=== PATIENT | male | born 1955 | race Caucasian/White ===

== ENCOUNTER 2017-05-29 22:38 | Observation (INO) | payer MEDICAID ==
[2017-05-29] MEDS ORDERED: SUBLIMAZE 100 MCG/2 ML IV ONE (22:49)
[2017-05-29] MEDS ORDERED: Sodium Chloride 0.9% 1000 ML 1,000 ML ONE (22:51)
[2017-05-29] MEDS: Sodium Chloride 0.9% 1000 ML 1,000 ML IV STA ×2 (22:51→22:54)
--- NOTE | 2017-05-29 22:55 | ERPHSYRPT ---
- History of Present Illness Historian: patient, EMS Exam Limitations: clinical condition Patient Subjective Stated Complaint: "I feel like my right kidney is going to explode" Triage Nursing Assessment: pt alert and oriented X 3, skin pwd pt ambulates without difficulty, able to speak in full sentences Physician History: Patient noted right flank pain yesterday during the day it was better during the day today but last 2 hours feels like it will explode extremely painful with no previous history of kidney stone or trauma to the area. No nausea or vomiting. Pain level X out of 10. No previous history of pain like this. Timing/Duration: today (worse), yesterday Quality: cramping, throbbing Abdominal Pain Onset Location: other (right flank) Pain Radiation: groin (right) Severity of Pain-Max: severe Severity of Pain-Current: severe Modifying Factors: Improves With: movement, position, walking Associated Symptoms: No nausea, No vomiting, No weakness Previous symptoms: no prior history Allergies/Adverse Reactions: acetaminophen [From Vicodin] Allergy (Verified 05/29/17 22:51) Hives MAKES HARD TO BREATHE ciprofloxacin [From Cipro] Allergy (Verified 05/29/17 22:51) INFLAMES TENDONS ciprofloxacin HCl [From Cipro] Allergy (Verified 05/29/17 22:51) INFLAMES TENDONS diltiazem HCl [From Cardizem] Allergy (Verified 05/29/17 22:51) Hives EDEMA hydrocodone bitartrate [From Vicodin] Allergy (Verified 05/29/17 22:51) Hives MAKES HARD TO BREATHE levofloxacin [From Levaquin] Allergy (Verified 05/29/17 22:51) INFLAMES TENDONS sertraline HCl [From Zoloft] Allergy (Verified 05/29/17 22:51) HIGH HEART RATE Sulfa (Sulfonamide Antibiotics) [Sulfa(Sulfonamide Antibiotics)] Allergy ( Verified 05/29/17 22:51) Hives zolpidem tartrate [From Ambien] Adverse Reaction (Verified 05/29/17 22:51) "DROGGY ALL DAY LONG" Home Medications: Albuterol Sulfate [Proair Hfa] 8.5 gm IH BID PRN PRN 03/31/16 [History] Clonazepam [Klonopin] 1 mg PO BID 03/31/16 [History] Dextroamphetamine/Amphetamine [Adderall 20 mg Tablet] 20 mg PO BID 03/31/16 [ History] Fluticasone/Salmeterol 115/21 [Advair Hfa 115/21 Common canister*] 2 puff IH DAILY 03/31/16 [History] Loratadine 10 mg [Claritin 10 mg] 10 mg PO DAILY 03/31/16 [History] Mometasone Furoate [Nasonex] 2 puff NS HS 03/31/16 [History] Nitroglycerin 0.4 mg Tablet [Nitrostat 0.4 MG Tablet] 0.4 mg SL UD [History] Olanzapine [Zyprexa] 20 mg PO HS 03/31/16 [History] Omeprazole 20 MG [Prilosec 20 mg] 20 mg PO HS 03/31/16 [History] Tamsulosin HCl [Flomax] 0.4 mg PO DAILY 03/31/16 [History] Tizanidine HCl 4 mg [Zanaflex 4 MG] 4 mg PO BID 03/31/16 [History] Warfarin Sodium 2.5 mg [Coumadin 2.5 MG] 2.5 mg PO QPM 03/31/16 [History] Warfarin Sodium 5 mg [Coumadin 5 MG] 5 mg PO UD 03/31/16 [History] Citalopram Hydrobromide [Citalopram HBr] 40 mg PO DAILY 05/30/17 [History] Docusate Sodium 100 mg [Colace 100 MG] 100 mg PO DAILY PRN PRN 05/30/17 [ History] Pramipexole Di-HCl 0.5 mg [Mirapex 0.5 MG Tablet] 0.5 mg PO HS 05/30/17 [ History] Verapamil HCl 180 mg PO DAILY 05/30/17 [History] Hx Tetanus, Diphtheria Vaccination/Date Given: Yes Hx Influenza Vaccination/Date Given: Yes Hx Pneumococcal Vaccination/Date Given: Yes Immunizations Up to Date: Yes - Review of Systems Eyes: No Symptoms Ears, Nose, & Throat: No Symptoms Respiratory: No Symptoms Cardiac: No Symptoms Abdominal/Gastrointestinal: Other (as noted right groin) Genitourinary Symptoms: Flank Pain Musculoskeletal: No Symptoms Skin: No Symptoms Neurological: No Symptoms Psychological: No Symptoms - Past Medical History Pertinent Past Medical History: Yes (no hx of DM or kidney disease) Neurological History: No Pertinent History ENT History: No Pertinent History Cardiac History: Deep Vein Thrombosis, Hypertension, Myocardial Infarction ([place]) Respiratory History: COPD, Emphysema, Pulmonary Embolism Endocrine Medical History: No Pertinent History Musculoskeletal History: Degenerative Disk Disease GI Medical History: No Pertinent History History: Bladder Cancer Psycho-Social History: Anxiety, Attention Deficit Disorder, Bipolar, Depression Male Reproductive Disorders: No Pertinent History - Past Surgical History Past Surgical History: Yes Gastrointestinal: Hernia Repair Other Surgical History: CANCER TUMOR REMOVED FROM BLADDER, TONSILLECTOMY - Social History Smoking Status: Current every day smoker How long have you smoked: years Exposure to second hand smoke: Yes Drug Use: none Patient Lives Alone: Yes - Nursing Vital Signs Nursing Vital Signs: Initial Vital Signs Temperature 98.3 F 05/29/17 22:39 Pulse Rate 68 05/29/17 22:39 Respiratory Rate 20 05/29/17 22:39 Blood Pressure 113/84 05/29/17 22:39 O2 Sat by Pulse Oximetry 94 L 05/29/17 22:39 Pain Scale Pain Intensity 10 - Physical Exam General Appearance: moderate distress, alert, anxiety Eye Exam: PERRL/EOMI Ears, Nose, Throat Exam: normal ENT inspection Neck Exam: normal inspection, non-tender, supple, full range of motion Respiratory Exam: normal breath sounds, lungs clear Cardiovascular Exam: regular rate/rhythm, normal heart sounds, normal peripheral pulses Gastrointestinal/Abdomen Exam: soft, normal bowel sounds, tenderness (LRQ), hernia (LEFT INGUINAL,SOFT,BS PRESENT), No pulsatile mass, No rebound Male Genitalia Exam: normal genitalia Rectal Exam: deferred Back Exam: CVA tenderness (RIGHT) Extremity Exam: normal inspection, normal range of motion, pelvis stable Neurologic Exam: alert, oriented x 3, cooperative, spearer II-XII nml as tested Skin Exam: normal color, warm, dry, No rash Lymphatic Exam: No adenopathy SpO2 Interpretation: normal SpO2: 94 Oxygen Delivery: Room Air - CT Exams Abdomen/Pelvis CT Interpretation: Tele-radiologist Report, Normal Appendix, No appendicitis, Other (LEFT INGUINAL HERNIA WITH COLON) Ordered Tests: Active Orders 24 hr Category Date Time Status Up With Assistance ROUTINE Activity 05/30/17 01:53 Active Clean Catch Urine Specimen STAT Care 05/30/17 00:45 Completed IV Care Q6H Care 05/30/17 01:53 Active IV Insertion STAT Care 05/29/17 22:43 Completed NPO (ED) STAT Care 05/29/17 22:43 Completed Cardiac Diet Diet 05/30/17 Breakfast Active ABDOMEN AND PELVIS W/0 CONTRAS [CT] Stat Exams 05/30/17 00:03 Taken AMYLASE Stat Lab 05/29/17 22:55 Completed CBC W DIFF AM.LAB Lab 05/30/17 04:00 Ordered CBC W DIFF Stat Lab 05/29/17 22:55 Completed CMP AM.LAB Lab 05/30/17 04:00 Ordered CMP Stat Lab 05/29/17 22:55 Completed CULTURE,URINE Stat Lab 05/30/17 00:30 Received LIPASE Stat Lab 05/29/17 22:55 Completed PROTIME WITH INR Stat Lab 05/30/17 00:00 Completed UA W/ MICROSCOPIC Stat Lab 05/30/17 00:30 Completed Urine Triage Profile Stat Lab 05/29/17 22:43 Completed Transfer Order Routine Transfer 05/30/17 02:29 Completed Medication Summary Generic Name Dose Route Start Last Admin Trade Name Freq PRN Reason Stop Dose Admin Acetaminophen 650 mg 05/30/17 01:53 Tylenol 325 Mg PO 06/29/17 01:52 Q4H PRN PRN PAIN AND/OR FEVER Albuterol Sulfate 2 puff 05/30/17 10:00 05/30/17 03:58 Proventil Common Canister IH 06/29/17 09:59 2 puff BID USHA Administration Fentanyl Citrate 50 mcg 05/30/17 01:53 05/30/17 04:22 Sublimaze 100 Mcg/2 Ml IV 06/04/17 01:52 50 mcg Q2H PRN PRN Administration PAIN Potassium Chloride/Sodium Chloride 1,000 mls @ 100 mls/hr 05/30/17 02:00 08/06 03:05 Sodium Chloride 0.9% W/ 20 Meq Kcl/Liter IV 06/29/17 01:59 100 mls/hr .Q10H USHA Administration Ondansetron HCl 4 mg 05/30/17 01:53 Zofran 4 Mg/2 Ml Vial IV 06/29/17 01:52 Q6H PRN PRN NAUSEA/VOMITING Discontinued Medications Generic Name Dose Route Start Last Admin Trade Name Raoq PRN Reason Stop Dose Admin Fentanyl Citrate 50 mcg 05/29/17 22:49 05/29/17 23:02 Sublimaze 100 Mcg/2 Ml IV 05/29/17 22:50 50 mcg STAT ONE Administration Fentanyl Citrate Confirm 05/29/17 23:01 Sublimaze 100 Mcg/2 Ml Administered 05/29/17 23:02 Dose 100 mcg .ROUTE .STK-MED ONE Fentanyl Citrate 50 mcg 05/30/17 01:21 05/30/17 01:36 Sublimaze 100 Mcg/2 Ml IV 05/30/17 01:22 50 mcg STAT ONE Administration Fentanyl Citrate Confirm 05/30/17 01:32 Sublimaze 100 Mcg/2 Ml Administered 05/30/17 01:33 Dose 100 mcg .ROUTE .STK-MED ONE Sodium Chloride 1,000 mls @ 999 mls/hr 05/29/17 22:43 05/29/17 22:54 Sodium Chloride 0.9% 1000 Ml IV 05/29/17 23:43 999 mls/hr .Q1H1M STA Administration Sodium Chloride Confirm 05/29/17 22:51 Sodium Chloride 0.9% 1000 Ml Administered 05/29/17 22:52 Dose 1,000 mls @ ud .ROUTE .STK-MED ONE Ceftriaxone Sodium/Dextrose 2 g in 50 mls @ 100 mls/hr 05/30/17 01:20 01:36 Rocephin 2 Gm-D5w 50ml Bag IV 05/30/17 01:49 100 mls/hr STAT STA Administration Ceftriaxone Sodium/Dextrose Confirm 05/30/17 01:32 Rocephin 2 Gm-D5w 50ml Bag Administered 05/30/17 01:33 Dose 2 g in 50 mls @ ud IV .STK-MED ONE Ceftriaxone Sodium/Dextrose 1 g in 50 mls @ 100 mls/hr 05/30/17 10:00 Rocephin 1 Gm-D5w 50 Ml Bag IV 06/29/17 09:59 Q24H10 [facility] Lab/Rad Data: Laboratory Result Diagrams 05/29/17 22:55 05/29/17 22:55 Laboratory Results 05/30/17 05/30/17 05/30/17 Range/Units 00:30 00:30 00:00 WBC (4.0-10.5) K/mm3 RBC (4.1-5.6) M/mm3 Hgb (12.5-18.0) gm/dl Hct (42-50) % MCV (78-100) fl MCH (26-32) pg MCHC (32-36) g/dl RDW (11.5-14.0) % Plt Count (150-450) K/mm3 MPV (6-9.5) fl Gran % (36.0-66.0) % Lymphocytes % (24.0-44.0) % Monocytes % (0.0-12.0) % Eosinophils % (0.00-5.0) % Basophils % (0.0-0.4) % Basophils # (0-0.4) INR 1.19 (0.8-3.0) Sodium (136-145) mEq/L Potassium (3.5-5.1) mEq/L Chloride (98-107) mEq/L Carbon Dioxide (21-32) mEq/L Anion Gap (5-15) MEQ/L BUN (9-20) mg/dL Creatinine (0.55-1.30) mg/dl Estimated GFR ML/MIN Glucose (70-110) MG/DL Calcium (8.5-10.1) mg/dL Total Bilirubin (0.2-1.0) mg/dL AST (15-37) U/L ALT (12-78) U/L Alkaline Phosphatase (46-116) U/L Serum Total Protein (6.4-8.2) gm/dL Albumin (3.4-5.0) g/dL Amylase (25-115) U/L Lipase (73-393) U/L Ur Collection Type CLEAN CATCH Urine Color YELLOW (YELLOW) Urine Appearance CLOUDY (CLEAR) Urine pH 6.5 (5-6) Ur Specific [place] 1.020 (1.005-1.025) Urine Protein TRACE (Negative) Urine Ketones NEGATIVE (NEGATIVE) Urine Blood 250 (0-5) Quinn/ul Urine Nitrite POSITIVE (NEGATIVE) Urine Bilirubin NEGATIVE (NEGATIVE) Urine Urobilinogen NORMAL (0-1) mg/dL Ur Leukocyte Esterase 2+ (NEGATIVE) Urine Microscopic RBC 25-50 (0-2) /HPF Urine Microscopic WBC >100 (0-5) /HPF Ur Epithelial Cells FEW (FEW) /HPF Urine Bacteria MANY (NEGATIVE) /HPF Urine Mucus SLIGHT (NEGATIVE) /HPF Urine Glucose NEGATIVE (NEGATIVE) mg/dL Urine Opiates Level NEG. (NEGATIVE) Ur Methadone NEG. (NEGATIVE) Urine Barbiturates NEG. (NEGATIVE) Ur Phencyclidine (PCP) NEG. (NEGATIVE) Urine Amphetamine POS. (NEGATIVE) U Benzodiazepine Level NEG. (NEGATIVE) Urine Cocaine NEG. (NEGATIVE) Urine Marijuana (THC) NEG. (NEGATIVE) Specimen Received 05/30/17:0030 05/29/17 05/29/17 Range/Units 22:55 22:55 WBC 9.2 (4.0-10.5) K/mm3 RBC 5.25 (4.1-5.6) M/mm3 Hgb 16.8 (12.5-18.0) gm/dl Hct 49.7 (42-50) % MCV 94.7 (78-100) fl MCH 32.0 (26-32) pg MCHC 33.8 (32-36) g/dl RDW 13.9 (11.5-14.0) % Plt Count 262 (150-450) K/mm3 MPV 9.1 (6-9.5) fl Gran % 52.9 (36.0-66.0) % Lymphocytes % 34.4 (24.0-44.0) % Monocytes % 8.1 (0.0-12.0) % Eosinophils % 4.1 (0.00-5.0) % Basophils % 0.5 (0.0-0.4) % Basophils # 0.05 (0-0.4) INR (0.8-3.0) Sodium 138 (136-145) mEq/L Potassium 3.9 (3.5-5.1) mEq/L Chloride 105 (98-107) mEq/L Carbon Dioxide 23.2 (21-32) mEq/L Anion Gap 13.9 (5-15) MEQ/L BUN 23 H (9-20) mg/dL Creatinine 1.00 (0.55-1.30) mg/dl Estimated GFR > 60 ML/MIN Glucose 105 (70-110) MG/DL Calcium 9.1 (8.5-10.1) mg/dL Total Bilirubin 0.20 (0.2-1.0) mg/dL AST 20 (15-37) U/L ALT 37 (12-78) U/L Alkaline Phosphatase 48 (46-116) U/L Serum Total Protein 7.3 (6.4-8.2) gm/dL Albumin 3.7 (3.4-5.0) g/dL Amylase 39 (25-115) U/L Lipase 162 (73-393) U/L Ur Collection Type Urine Color (YELLOW) Urine Appearance (CLEAR) Urine pH (5-6) Ur Specific [place] (1.005-1.025) Urine Protein (Negative) Urine Ketones (NEGATIVE) Urine Blood (0-5) Quinn/ul Urine Nitrite (NEGATIVE) Urine Bilirubin (NEGATIVE) Urine Urobilinogen (0-1) mg/dL Ur Leukocyte Esterase (NEGATIVE) Urine Microscopic RBC (0-2) /HPF Urine Microscopic WBC (0-5) /HPF Ur Epithelial Cells (FEW) /HPF Urine Bacteria (NEGATIVE) /HPF Urine Mucus (NEGATIVE) /HPF Urine Glucose (NEGATIVE) mg/dL Urine Opiates Level (NEGATIVE) Ur Methadone (NEGATIVE) Urine Barbiturates (NEGATIVE) Ur Phencyclidine (PCP) (NEGATIVE) Urine Amphetamine (NEGATIVE) U Benzodiazepine Level (NEGATIVE) Urine Cocaine (NEGATIVE) Urine Marijuana (THC) (NEGATIVE) Specimen Received - Progress Progress: improved, pain not gone completely, re-examined Progress Note: 05/30/17 01:37Urinalysis significant for urinary tract infection probable right pyelonephritis no renal stone noted on CT however did note left inguinal hernia with colon. Patient will be admitted for intravenous antibiotics and further evaluation /treatment as well as pain control which is in agreement to the patient. Discussed with : Marcos Will see patient in: hospital (observation) - Departure Time of Disposition: 01:38 Departure Disposition: Observation Clinical Impression: History of DVT (deep vein thrombosis), Warfarin anticoagulation, Acute pyelonephritis, Left inguinal hernia Condition: Fair Critical Care Time: No
[2017-05-29] MEDS ORDERED: SUBLIMAZE 100 MCG/2 ML ONE (23:01)
[2017-05-29 23:08] LABS: BASOPHIL % 0.5 % (0.0-0.4); Eosinophil % 4.1 % (0.00-5.0); Granulocytes % 52.9 % (36.0-66.0); Lymphocytes % 34.4 % (24.0-44.0); Mean Cell Volume 94.7 fl (78-100); Mean Platelet Volume 9.1 fl (6-9.5); Monocytes % 8.1 % (0.0-12.0); Platelet Count 262 K/mm3 (150-450); Red Blood Count 5.25 M/mm3 (4.1-5.6); Red Cell Distribution Width 13.9 % (11.5-14.0); White Blood Count 9.2 K/mm3 (4.0-10.5)
[2017-05-29 23:30] LABS: ALBUMIN 3.7 g/dL (3.4-5.0); ALKALINE PHOSPHATASE 48 U/L (46-116); ANION GAP 13.9 MEQ/L (5-15); BLOOD UREA NITROGEN 23 mg/dL (9-20); CHLORIDE 105 mEq/L (98-107); Carbon Dioxide 23.2 mEq/L (21-32); Glucose 105 MG/DL (70-110); LIPASE 162 U/L (73-393); Potassium 3.9 mEq/L (3.5-5.1); SGOT/AST 20 U/L (15-37); SGPT/ALT 37 U/L (12-78); SODIUM 138 mEq/L (136-145); Total Protein 7.3 gm/dL (6.4-8.2)
[2017-05-30 00:37] LABS: INR 1.19 (0.8-3.0); PROTIME 13.5 SECONDS (8.83-12.87)
[2017-05-30 01:02] LABS: ADD URINE CULTURE? YES (NO); Bilirubin NEGATIVE (NEGATIVE); Blood 250 Ery/ul (0-5); COMPLETE URINE MICROSCOPIC? YES; Collection Type CLEAN CATCH; Glucose NEGATIVE (NEGATIVE); Leukocyte Esterase 2+ (NEGATIVE)
[2017-05-30 01:06] LABS: Bacteria MANY /HPF (NEGATIVE); Epithelial Cells FEW /HPF (FEW); Mucus SLIGHT /HPF (NEGATIVE); WBC >100 /HPF (0-5)
[2017-05-30] MEDS ORDERED: ROCEPHIN 2 Gm-D5w 50ML BAG** 2 G/50 ML IVPB IV STA (01:20)
[2017-05-30] MEDS ORDERED: SUBLIMAZE 100 MCG/2 ML IV ONE (01:21)
[2017-05-30] MEDS ORDERED: SUBLIMAZE 100 MCG/2 ML ONE (01:32)
[2017-05-30] MEDS ORDERED: ROCEPHIN 2 Gm-D5w 50ML BAG** 2 G/50 ML IVPB IV ONE (01:32)
[2017-05-30] MEDS ORDERED: Zofran 4 MG/2 ML VIAL IV PRN (01:53)
[2017-05-30] MEDS ORDERED: TYLENOL 325 MG PO PRN (01:53)
[2017-05-30] MEDS: Sodium Chloride 0.9% W/ 20 mEq KCl/LITER 1,000 ML IV SCH ×3 (03:05→21:28)
[2017-05-30] MEDS: SUBLIMAZE 100 MCG/2 ML IV PRN ×4 (04:22→21:36)
[2017-05-30 06:26] LABS: BASOPHIL % 0.6 % (0.0-0.4); Eosinophil % 3.5 % (0.00-5.0); Granulocytes % 56.8 % (36.0-66.0); Lymphocytes % 30.8 % (24.0-44.0); Mean Cell Volume 95.7 fl (78-100); Mean Corpuscular Hemoglobin 31.8 pg (26-32); Monocytes % 8.3 % (0.0-12.0); Platelet Count 255 K/mm3 (150-450); Red Blood Count 4.85 M/mm3 (4.1-5.6); Red Cell Distribution Width 14.1 % (11.5-14.0); White Blood Count 9.1 K/mm3 (4.0-10.5)
[2017-05-30 06:55] LABS: ALBUMIN 3.3 g/dL (3.4-5.0); ALKALINE PHOSPHATASE 42 U/L (46-116); ANION GAP 12.9 MEQ/L (5-15); BLOOD UREA NITROGEN 20 mg/dL (9-20); CHLORIDE 107 mEq/L (98-107); Carbon Dioxide 23.6 mEq/L (21-32); Glucose 97 MG/DL (70-110); Potassium 3.8 mEq/L (3.5-5.1); SGOT/AST 19 U/L (15-37); SGPT/ALT 34 U/L (12-78); SODIUM 140 mEq/L (136-145); Total Protein 6.5 gm/dL (6.4-8.2)
[2017-05-30] MEDS: PROVENTIL COMMON CANISTER IH SCH ×2 (07:07→19:36)
[2017-05-30] MEDS: Nicoderm CQ 21 MG TOP SCH ×2 (09:59→10:00)
[2017-05-30] MEDS ORDERED: ROCEPHIN 1 Gm-D5w 50 ml Bag** 1 G/50 ML IVPB IV SCH ×2 (10:00→22:00)
[2017-05-30] MEDS ORDERED: PROVENTIL COMMON CANISTER IH SCH (10:00)
[2017-05-30] MEDS ORDERED: Nicoderm CQ 21 MG ONE (10:06)
--- NOTE | 2017-05-30 12:12 | XRAY ---
Exam: CT of the abdomen and pelvis without IV contrast from 05/30/2017. CTDI: 18.86 Comparison: CT of the abdomen and pelvis with IV contrast from 09/03/2016. Indication: Right flank pain. Technique: Non-IV contrast axial images were obtained through the abdomen and pelvis. Reconstructed coronal and sagittal images were created and reviewed. Findings: The lung bases reveals some centrilobular emphysema changes. There also appears to be mild linear atelectasis or scarring at the posterior medial right lung base and scant linear scarring/atelectasis at the posterior lateral left lung base. The heart size is normal. Assessment of the solid organs is limited without the use of IV contrast. The liver is essentially normal. There is a tiny 5 mm low attenuation lesion at the anterior margin of the left lobe of the liver on axial image #18 which is too small to characterize, but likely represents a small hepatic cyst. No intrahepatic biliary duct distention is seen. The gallbladder is distended and reveals no dense calcifications within it. The spleen, pancreas, and adrenal glands appear normal. The kidneys are of unremarkable size. No renal calculi or hydronephrosis is seen. There is an apparent 2.0 cm in diameter cyst within the anterior aspect of the upper pole of the right kidney. There is also a tiny 4-5 mm probable cyst at the posterior lateral margin of the upper pole of the right kidney. I also suspect a 1 cm in diameter cyst within the posterior aspect of the middle third of the right kidney on axial image #31 measuring +8.9 Hounsfield units. These right renal cysts appear unchanged from 09/03/2016. The visualized ureters are of normal diameter and reveal no ureterolith. Mild scattered atherosclerotic vascular calcification is seen within the abdominal aorta. This is a bit more pronounced at the aortic bifurcation and within the proximal iliac arteries. No abdominal aortic aneurysm is seen. No abnormal retroperitoneal lymphadenopathy is seen. The anterior abdominal wall appears unremarkable. No bowel obstruction or distention is seen. Scattered colonic stool is noted. There is a left inguinal hernia containing a nondistended sigmoid colon loop within it. Correlate clinically. I also note some surgical clips/suture material within the right inguinal canal, perhaps due to prior right inguinal hernia repair. The appendix is identified and appears normal. No free intraperitoneal fluid or enlarged pelvic lymph nodes are seen. The urinary bladder appears relatively empty which probably accounts for some apparent urinary bladder wall thickening. Correlate clinically to exclude cystitis. The seminal vesicles and prostate gland appear unremarkable. Moderate atherosclerotic vascular calcification is seen within the iliac arteries and common femoral arteries. No abnormal lymphadenopathy is seen within either groin. The bones reveal no fracture or aggressive osseous lesion. There appears to be some mild narrowing of the right hip joint space as compared to the left hip joint space suggesting mild osteoarthritis. Some acetabular spurring is seen bilaterally. I note moderate bilateral facet joint arthropathy at L4-L5 and L5-S1 and mild left L3-L4 facet joint arthropathy. Anterior lateral vertebral endplate spurs are seen throughout the visualized thoracolumbar spine area Impression: 1. I see no renal/ureteral stones, hydronephrosis, or obstructive uropathy. 2. There are at least 3 small cysts within the right kidney representing no change from 09/03/2016. 3. Left inguinal hernia containing stool-filled nondilated sigmoid colon loop. Correlate clinically. 4. Normal appendix. 5. The urinary bladder is mostly empty. This is probably accentuating the urinary bladder wall thickness. Correlate clinically to exclude cystitis. 6. No other acute process is seen within the abdomen or pelvis. Emphysematous changes are seen at the lung bases.
[2017-05-30] MEDS ORDERED: Colace 100 MG PO PRN (12:52)
[2017-05-30] MEDS ORDERED: Ventolin Hfa MDI IH PRN (12:52)
[2017-05-30] MEDS ORDERED: ISOPTIN SR 180MG PO SCH (13:00)
[2017-05-30] MEDS ORDERED: Nitrostat 0.4 MG Tablet SL PRN (13:00)
[2017-05-30] MEDS ORDERED: CLARITIN 10 MG PO SCH (13:00)
[2017-05-30] MEDS ORDERED: Flomax 0.4 MG PO SCH (13:00)
[2017-05-30] MEDS ORDERED: MEDICATION INTERVENTION MC PRN (13:07)
[2017-05-30] MEDS ORDERED: Advair Hfa 115/21 Common canister IH SCH (13:15)
[2017-05-30] MEDS ORDERED: ceLEXa 20 MG PO SCH (13:15)
[2017-05-30] MEDS: Klonopin 0.5 MG PO SCH ×2 (15:02→21:30)
[2017-05-30] MEDS ORDERED: Coumadin 2.5 MG PO SCH (18:00)
[2017-05-30] MEDS ORDERED: MOMETASONE FUROATE NS SCH (22:00)
[2017-05-30] MEDS ORDERED: NON-FORMULARY ITEM (Dextroamphetamine/Amphetamine [Adderall 20 Mg Tablet] 20 MG) PO SCH (22:00)
[2017-05-30] MEDS ORDERED: NON-FORMULARY ITEM (Clonazepam [Klonopin] 1 MG) PO SCH (22:00)
[2017-05-30] MEDS ORDERED: Flonase NASAL NS SCH (22:00)
[2017-05-30] MEDS ORDERED: Protonix 40MG Tablet PO SCH (22:00)
[2017-05-30] MEDS ORDERED: OLANZAPINE 20 MG PO SCH (22:00)
[2017-05-30] MEDS ORDERED: Mirapex 0.5 MG Tablet PO SCH (22:00)
[2017-05-30] MEDS ORDERED: Zanaflex 4 MG PO SCH (22:00)
[2017-05-30] MEDS ORDERED: zyPREXA 5MG TABLET PO SCH (22:00)
[2017-05-30] MEDS ORDERED: NON-FORMULARY ITEM (Omeprazole 20 Mg [Prilosec 20 Mg] 20 MG) PO SCH (22:00)
[2017-05-31] MEDS: PROVENTIL COMMON CANISTER IH SCH (06:54)
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
[2017-05-31 08:10] VITALS: BP 115/58; PULSE 47; O2SAT 93
[2017-05-31] MEDS ORDERED: NON-FORMULARY ITEM (Citalopram Hydrobromide [Citalopram Hbr] 40 MG) PO SCH (10:00)
[2017-05-31] MEDS ORDERED: Coumadin 5 MG PO SCH (18:00)
== END 2017-05-31 10:25 | disposition home or self-care (01) ==
LOC: ED 22:38 → MED SURG 05-30 02:33
PROVIDERS: ADMIT General Practice; ATTEND General Practice
DX: N10 Acute pyelonephritis (principal); Z86.718 Personal history of other venous thrombosis and embolism; K40.90 Unilateral inguinal hernia, without obstruction or gangrene, not specified as recurrent; S20.211A Contusion of right front wall of thorax, initial encounter; S09.90XA Unspecified injury of head, initial encounter; S01.01XA Laceration without foreign body of scalp, initial encounter; M79.604 Pain in right leg; Y09 Assault by unspecified means; Z79.01 Long term (current) use of anticoagulants; Z79.899 Other long term (current) drug therapy
CPT/HCPCS: 36415; 74176; 80053; 80307; 81000; 82150; 83690; 85025; 85610; 87077; 87086; 87186; 94640; 94760; 96360; 96365; 96374; 96376; 99285; G0378; J0696; J3010; A9270-GY

== ENCOUNTER 2020-05-25 21:20 | Emergency (ER) | payer MEDICAID ==
[2020-05-25] MEDS ORDERED: Sodium Chloride 0.9% 1000 ML 1,000 ML IV STA (21:26)
[2020-05-25 21:45] LABS: BASOPHIL % 0.5 % (0.0-0.4); Basophil (Absolute #) 0.04 (0-0.4); Eosinophil % 11.9 % (0.00-5.0); Eosinophil (Absolute #) 0.88 (0-0.5); Hematocrit 38.9 % (42-50); Hemoglobin 12.5 gm/dl (12.5-18.0); Lymphocyte (Absolute #) 1.81 (1.0-4.6); Lymphocytes % 24.5 % (24.0-44.0); Mean Cell Volume 96.3 fl (78-100); Mean Corpuscular Hemoglobin 30.9 pg (26-32); Mean Corpuscular Hgb Concent. 32.1 g/dl (32-36); Mean Platelet Volume 8.6 fl (7.5-11.0); Monocyte (Absolute #) 0.56 (0.0-1.3); Monocytes % 7.6 % (0.0-12.0); Neutrophil % 55.5 % (36.0-66.0); Platelet Count 392 K/mm3 (150-450); Red Blood Count 4.04 M/mm3 (4.1-5.6); Red Cell Distribution Width 13.9 % (11.5-14.0); White Blood Count 7.4 K/mm3 (4.0-10.5)
--- NOTE | 2020-05-25 21:56 | ERPHSYRPT ---
- History of Present Illness Time Seen by Provider: 05/25/20 21:27 Source: patient, EMS Patient Subjective Stated Complaint: PT C/O ALLERGIC REACTION AND "HIVES ALL OVER" THAT BEGAN. LAST NIGHT; PT ADMITS TO METH USE AND HIP REPLACEMENT SX. DR. GOMEZ Triage Nursing Assessment: NO HIVES NOTED PER EMS OR THIS RN; Physician History: 65 History is limited. Years old male is brought in the ER with chief complaint of hives all over and itching. He got [address]ryl on the way to the ER and his itching is mildly better. Patient was a little confused on EMS presentation and did admit to using methamphetamines earlier today. Questionable use of bath salts. Patient denies any chest pain palpitations or shortness of breath. No abdominal pain nausea or vomiting. He is complaining of right hip pain leg pain. Patient is post hip replacement less than 10 days ago at [place] but reports increasing sharp shooting pain in right lower extre mities with palpation and minimal movements. He has been taking his pain medication with no significant relief. Also reports swelling in the right lower extremity. denies fever or chills. Denies any fall or trauma. Patient is not a good historian and has some element of confusion as well. Allergies/Adverse Reactions: acetaminophen [From Vicodin] Allergy (Intermediate, Verified 05/25/20 21:45) Hives MAKES HARD TO BREATHE ciprofloxacin [From Cipro] Allergy (Intermediate, Verified 05/25/20 21:45) INFLAMES TENDONS ciprofloxacin HCl [From Cipro] Allergy (Intermediate, Verified 05/25/20 21:45) INFLAMES TENDONS diltiazem HCl [From Cardizem] Allergy (Intermediate, Verified 05/25/20 21:45) Hives EDEMA hydrocodone bitartrate [From Vicodin] Allergy (Intermediate, Verified 05/25/20 21:45) Hives MAKES HARD TO BREATHE levofloxacin [From Levaquin] Allergy (Intermediate, Verified 05/25/20 21:45) INFLAMES TENDONS sertraline HCl [From Zoloft] Allergy (Intermediate, Verified 05/25/20 21:45) HIGH HEART RATE Sulfa (Sulfonamide Antibiotics) [Sulfa(Sulfonamide Antibiotics)] Allergy (Intermediate, Verified 05/25/20 21:45) Hives zolpidem tartrate [From Ambien] Adverse Reaction (Intermediate, Verified 05/25/20 21:45) "DROGGY ALL DAY LONG" Home Medications: Albuterol Sulfate [Proair Hfa] 8.5 gm IH BID PRN PRN 03/31/16 [History] Loratadine 10 mg [Claritin 10 mg] 10 mg PO DAILY 03/31/16 [History] Omeprazole 20 MG [Prilosec 20 mg] 40 mg PO HS 03/31/16 [History] Tamsulosin HCl [Flomax] 0.4 mg PO DAILY 03/31/16 [History] Citalopram Hydrobromide [Citalopram HBr] 40 mg PO DAILY 05/30/17 [History] Verapamil HCl 180 mg PO DAILY 05/30/17 [History] Clonidine HCl 0.1 mg [Catapres 0.1 MG] 1 tab PO TID 05/25/20 [History] Donepezil HCl 10 mg [Aricept 10 MG] 05/25/20 [History] Fenofibrate Nanocrystallized [Fenofibrate] 1 tab PO DAILY 05/25/20 [History] Gabapentin 1 cap PO TID 05/25/20 [History] Warfarin Sodium [Coumadin] 1 tab PO DAILY 05/25/20 [History] Hx Tetanus, Diphtheria Vaccination/Date Given: Yes Hx Influenza Vaccination/Date Given: No Hx Pneumococcal Vaccination/Date Given: No Immunizations Up to Date: Yes Travel Risk - International Travel Have you traveled outside of the country in past 3 weeks: No - Coronavirus Screening Close contact with a COVID-19 positive Pt in past 14-21 Days: No - Review of Systems Eyes: No Symptoms Ears, Nose, & Throat: No Symptoms Respiratory: No Symptoms Cardiac: No Symptoms Abdominal/Gastrointestinal: No Symptoms Musculoskeletal: Joint Pain, Myalgias Skin: Pruritis Neurological: Headache Psychological: Anxiety Endocrine: No Symptoms Hematologic/Lymphatic: No Symptoms Immunological/Allergic: No Symptoms - Past Medical History Pertinent Past Medical History: Yes Neurological History: No Pertinent History ENT History: No Pertinent History Cardiac History: Deep Vein Thrombosis, Hypertension, Myocardial Infarction ([place]) Respiratory History: COPD, Emphysema, Pulmonary Embolism Endocrine Medical History: No Pertinent History Musculoskeletal History: Degenerative Disk Disease GI Medical History: No Pertinent History History: Bladder Cancer Psycho-Social History: Anxiety, Attention Deficit Disorder, Bipolar, Depression Male Reproductive Disorders: No Pertinent History - Past Surgical History Past Surgical History: Yes Gastrointestinal: Hernia Repair Musculoskeletal: Joint Replacement Other Surgical History: CANCER TUMOR REMOVED FROM BLADDER, TONSILLECTOMY; RIGHT HIP. REPLACEMENT - Social History Smoking Status: Current every day smoker How long have you smoked: 45 Exposure to second hand smoke: Yes Drug Use: methamphetamines Patient Lives Alone: No - Nursing Vital Signs Nursing Vital Signs: Initial Vital Signs Temperature 98.5 F 05/25/20 21:21 Pulse Rate 68 05/25/20 21:21 Respiratory Rate 18 05/25/20 21:21 Blood Pressure 130/79 05/25/20 21:21 O2 Sat by Pulse Oximetry 91 L 05/25/20 21:21 Pain Scale Pain Intensity 5 - Physical Exam General Appearance: no apparent distress, alert, anxiety Eye Exam: PERRL/EOMI, eyes nml inspection Ears, Nose, Throat Exam: normal ENT inspection, tonsillar exudate, other (Dry mucous membranes) Neck Exam: normal inspection, non-tender, supple Respiratory Exam: normal breath sounds, lungs clear Cardiovascular Exam: regular rate/rhythm, normal heart sounds Gastrointestinal/Abdomen Exam: soft, normal bowel sounds, No tenderness Back Exam: normal inspection, normal range of motion, No CVA tenderness Extremity Exam: calf tenderness, joint swelling (Right hip. Dressing well applied. No redness erythema/induration.), pedal edema (Right), swelling, tenderness (Right lower extremity), other (Dressing well applied along lateral aspect of right hip. Minimal pain with movements of hip. Do not seems dislocated.) Neurologic Exam: alert, oriented x 3, machine strap buckler II-XII nml as tested, sensation nml, other (Labile mood), No motor deficits Skin Exam: normal color, warm, rash (Hives on right lower extremity all the way down and few on the left.) SpO2 Interpretation: normal SpO2: 91 O2 Delivery: Room Air - Course Nursing assessment & vital signs reviewed: Yes EKG Interpreted by Me: RATE (78), NORMAL AXIS, NORMAL INTERVALS, NORMAL QRS, Other (APC.) Ordered Tests: Active Orders 24 hr Category Date Time Status EKG-ER Only STAT Care 05/25/20 21:26 Active IV Insertion STAT Care 05/25/20 21:26 Active NPO (ED) STAT Care 05/25/20 21:26 Active CHEST 1 VIEW (PORTABLE) Stat Exams 05/25/20 21:27 Taken HEAD WITHOUT CONTRAST [CT] Stat Exams 05/25/20 21:27 Taken VENOUS UNILAT/LIMITED EXTREMIT [US] Stat Exams 05/25/20 21:55 Taken CBC W DIFF Stat Lab 05/25/20 21:40 Completed CMP Stat Lab 05/25/20 21:40 Completed CULTURE,URINE Stat Lab 05/25/20 23:14 Received PT INR [PROTIME WITH INR] Stat Lab 05/25/20 22:51 Completed TROPONIN Q3H Lab 05/25/20 21:40 Completed TROPONIN Q3H Lab 05/26/20 00:30 Ordered TROPONIN Q3H Lab 05/26/20 03:30 Ordered TROPONIN Q3H Lab 05/26/20 06:30 Ordered TROPONIN Q3H Lab 05/26/20 09:30 Ordered UA W/RFX UR CULTURE Stat Lab 05/25/20 23:14 Completed Urine Triage Profile Stat Lab 05/25/20 23:14 Completed Medication Summary Discontinued Medications Generic Name Dose Route Start Last Admin Trade Name Freq PRN Reason Stop Dose Admin Cephalexin HCl 500 mg 05/26/20 00:13 05/26/20 00:28 Keflex 500 Mg PO 05/26/20 00:14 500 mg STAT ONE Administration Cephalexin HCl Confirm 05/26/20 00:27 Keflex 500 Mg Administered 05/26/20 00:28 Dose 500 mg .ROUTE .STK-MED ONE Famotidine 40 mg 05/25/20 23:18 05/25/20 23:25 Pepcid 20 Mg Vial IV 05/25/20 23:19 40 mg STAT ONE Administration Famotidine Confirm 05/25/20 23:22 Pepcid 20 Mg Vial Administered 05/25/20 23:23 Dose 40 mg IV .STK-MED ONE Sodium Chloride 1,000 mls @ 999 mls/hr 05/25/20 21:26 05/25/20 22:25 Sodium Chloride 0.9% 1000 Ml IV 05/25/20 22:26 999 mls/hr .Q1H1M STA Administration Sodium Chloride Confirm 05/25/20 22:25 Sodium Chloride 0.9% 1000 Ml Administered 05/25/20 22:26 Dose 1,000 mls @ ud .ROUTE .STK-MED ONE Ceftriaxone Sodium/Dextrose 1 g in 50 mls @ 100 mls/hr 05/25/20 23:47 Rocephin 1 Gm-D5w 50 Ml Bag IV 05/26/20 00:16 STAT STA Methylprednisolone Sodium Succinate 125 mg 05/25/20 23:18 05/25/20 23:25 Solu-Medrol 125 Mg IV 05/25/20 23:19 125 mg STAT ONE Administration Methylprednisolone Sodium Succinate Confirm 05/25/20 23:22 Solu-Medrol 125 Mg Administered 05/25/20 23:23 Dose 125 mg .ROUTE .STK-MED ONE Lab/Rad Data: Laboratory Result Diagrams 05/25/20 21:40 05/25/20 21:40 Laboratory Results 05/25/20 05/25/20 05/25/20 Range/Units 23:14 23:14 22:51 WBC (4.0-10.5) K/mm3 RBC (4.1-5.6) M/mm3 Hgb (12.5-18.0) gm/dl Hct (42-50) % MCV (78-100) fl MCH (26-32) pg MCHC (32-36) g/dl RDW (11.5-14.0) % Plt Count (150-450) K/mm3 MPV (7.5-11.0) fl Gran % (36.0-66.0) % Eos # (Auto) (0-0.5) Absolute Lymphs (auto) (1.0-4.6) Absolute Monos (auto) (0.0-1.3) Lymphocytes % (24.0-44.0) % Monocytes % (0.0-12.0) % Eosinophils % (0.00-5.0) % Basophils % (0.0-0.4) % Absolute Granulocytes (1.4-6.9) Basophils # (0-0.4) PT 19.2 H (8.83-12.87) SECONDS INR 1.69 (0.8-3.0) Sodium (137-145) mmol/L Potassium (3.5-5.1) mmol/L Chloride (98-107) mmol/L Carbon Dioxide (22-30) mmol/L Anion Gap (5-15) MEQ/L BUN (9-20) mg/dL Creatinine (0.66-1.25) mg/dL Estimated GFR ML/MIN Glucose (74-106) mg/dL Calcium (8.4-10.2) mg/dL Total Bilirubin (0.2-1.3) mg/dL AST (17-59) U/L ALT (0-50) U/L Alkaline Phosphatase (38-126) U/L Troponin I (0.000-0.034) ng/mL Serum Total Protein (6.3-8.2) g/dL Albumin (3.5-5.0) g/dL Urine Color YELLOW (YELLOW) Urine Appearance CLOUDY (CLEAR) Urine pH 6.0 (5-6) Ur Specific [place] 1.017 (1.005-1.025) Urine Protein NEGATIVE (Negative) Urine Ketones NEGATIVE (NEGATIVE) Urine Blood NEGATIVE (0-5) Quinn/ul Urine Nitrite NEGATIVE (NEGATIVE) Urine Bilirubin NEGATIVE (NEGATIVE) Urine Urobilinogen 2 (0-1) mg/dL Ur Leukocyte Esterase MODERATE (NEGATIVE) Urine WBC (Auto) 51-100 (0-5) /HPF Urine RBC (Auto) 6-10 (0-2) /HPF U Epithel Cells (Auto) RARE (FEW) /HPF Urine Bacteria (Auto) FEW (NEGATIVE) /HPF Urine Mucus (Auto) SLIGHT (NEGATIVE) /HPF Urine Culture Reflexed YES (NO) Urine Glucose NEGATIVE (NEGATIVE) mg/dL Urine Opiates Level NEGATIVE (NEGATIVE) Ur Methadone NEGATIVE (NEGATIVE) Urine Barbiturates NEGATIVE (NEGATIVE) Ur Phencyclidine (PCP) NEGATIVE (NEGATIVE) Urine Amphetamine POSITIVE (NEGATIVE) U Benzodiazepine Level NEGATIVE (NEGATIVE) Urine Cocaine NEGATIVE (NEGATIVE) Urine Marijuana (THC) NEGATIVE (NEGATIVE) 05/25/20 05/25/20 05/25/20 Range/Units 21:40 21:40 21:40 WBC 7.4 (4.0-10.5) K/mm3 RBC 4.04 L (4.1-5.6) M/mm3 Hgb 12.5 (12.5-18.0) gm/dl Hct 38.9 L (42-50) % MCV 96.3 (78-100) fl MCH 30.9 (26-32) pg MCHC 32.1 (32-36) g/dl RDW 13.9 (11.5-14.0) % Plt Count 392 (150-450) K/mm3 MPV 8.6 (7.5-11.0) fl Gran % 55.5 (36.0-66.0) % Eos # (Auto) 0.88 H (0-0.5) Absolute Lymphs (auto) 1.81 (1.0-4.6) Absolute Monos (auto) 0.56 (0.0-1.3) Lymphocytes % 24.5 (24.0-44.0) % Monocytes % 7.6 (0.0-12.0) % Eosinophils % 11.9 H (0.00-5.0) % Basophils % 0.5 (0.0-0.4) % Absolute Granulocytes 4.10 (1.4-6.9) Basophils # 0.04 (0-0.4) PT (8.83-12.87) SECONDS INR (0.8-3.0) Sodium 138 (137-145) mmol/L Potassium 3.5 (3.5-5.1) mmol/L Chloride 110 H (98-107) mmol/L Carbon Dioxide 23 (22-30) mmol/L Anion Gap 8.6 (5-15) MEQ/L BUN 23 H (9-20) mg/dL Creatinine 0.84 (0.66-1.25) mg/dL Estimated GFR > 60.0 ML/MIN Glucose 85 (74-106) mg/dL Calcium 8.7 (8.4-10.2) mg/dL Total Bilirubin 0.30 (0.2-1.3) mg/dL AST 33 (17-59) U/L ALT 23 (0-50) U/L Alkaline Phosphatase 44 (38-126) U/L Troponin I < 0.012 (0.000-0.034) ng/mL Serum Total Protein 5.9 L (6.3-8.2) g/dL Albumin 3.3 L (3.5-5.0) g/dL Urine Color (YELLOW) Urine Appearance (CLEAR) Urine pH (5-6) Ur Specific [place] (1.005-1.025) Urine Protein (Negative) Urine Ketones (NEGATIVE) Urine Blood (0-5) Quinn/ul Urine Nitrite (NEGATIVE) Urine Bilirubin (NEGATIVE) Urine Urobilinogen (0-1) mg/dL Ur Leukocyte Esterase (NEGATIVE) Urine WBC (Auto) (0-5) /HPF Urine RBC (Auto) (0-2) /HPF U Epithel Cells (Auto) (FEW) /HPF Urine Bacteria (Auto) (NEGATIVE) /HPF Urine Mucus (Auto) (NEGATIVE) /HPF Urine Culture Reflexed (NO) Urine Glucose (NEGATIVE) mg/dL Urine Opiates Level (NEGATIVE) Ur Methadone (NEGATIVE) Urine Barbiturates (NEGATIVE) Ur Phencyclidine (PCP) (NEGATIVE) Urine Amphetamine (NEGATIVE) U Benzodiazepine Level (NEGATIVE) Urine Cocaine (NEGATIVE) Urine Marijuana (THC) (NEGATIVE) - Progress Progress: improved, pain not gone completely, re-examined Progress Note: 65 years old is evaluated for allergic reaction and hives. He is given Benadryl on the way to the ER and itching improved but still have hives on the right lower extremity and is given fluid bolus and follow-up with Pepcid. Patient has no respiratory distress. Patient was a little confused earlier and CT head is negative. Chest x-ray did not show any acute findings. Work-up grossly otherwise unremarkable. Patient has marked tenderness in the right lower extremity muscles and I have obtained ultrasound which ruled out DVT. Patient is advised to continue with his Coumadin. Does have UTI and given a dose of Keflex in here and will continue for short course to go home. I have advised him to decrease the dose of Coumadin to half for next couple of days as his INR would go up with him being on antibiotics. Urine is positive for amphetamine which patient has not been taking. This could be the reason for his altered mentation earlier. Patient later on improved and has no signs of alteration. I believe this is probably secondary to his Benadryl use on the way to the ER. He has a nonfocal neuro exam otherwise. At this point patient would be discharged on a short course of steroid and outpatient follow-up. I do not know the exact cause of his allergic reaction but is advised to monitor each new medication he is taking and avoid the 1 which seems to be the culprit. Discussed signs symptoms of worsening needing return to ER which he seems understanding. 05/26/20 00:13 Counseled pt/family regarding: lab results, diagnosis, need for follow-up, rad results, smoking cessation - Departure Departure Disposition: Home Clinical Impression: Substance abuse, Acute UTI (urinary tract infection) Allergic reaction Qualifiers: Encounter type: initial encounter Qualified Code(s): T78.40XA - Allergy, unspecified, initial encounter Condition: Stable Critical Care Time: No Referrals: KWADWO DONOVAN [Primary Care Provider] - (2 DAYS FOR RE EVALUATION AND RECHECK OF INR) Instructions: Adverse Drug Reactions, Adult (DC) Additional Instructions: Take Benadryl's as needed. Follow-up with your primary care physician for reevaluation and recheck of INR/Coumadin level. Being on antibiotic it can go up and can cause bleeding. Follow-up with PCP in 2 days for reevaluation. Use only prescription medications. Return to ER for worsening. Prescriptions: Diphenhydramine HCl 25 mg [Benadryl 25 mg Capsule] 25 mg PO Q6H PRN PRN #20 capsule PRN Reason: Allergies Prednisone 20 mg [Deltasone 20 mg] 60 mg PO DAILY 5 Days #15 tablet Cephalexin Mh 500 mg [Keflex 500 mg] 500 mg PO BID #9 capsule Famotidine 20 mg [Pepcid 20 MG] 20 mg PO BID #10 tablet
[2020-05-25 22:02] LABS: ALBUMIN 3.3 g/dL (3.5-5.0); ALKALINE PHOSPHATASE 44 U/L (38-126); ANION GAP 8.6 MEQ/L (5-15); BLOOD UREA NITROGEN 23 mg/dL (9-20); CHLORIDE 110 mmol/L (98-107); Calcium 8.7 mg/dL (8.4-10.2); Carbon Dioxide 23 mmol/L (22-30); Creatinine 1 0.84 mg/dL (0.66-1.25); Glucose 85 mg/dL (74-106); Potassium 3.5 mmol/L (3.5-5.1); SGOT/AST 33 U/L (17-59); SGPT/ALT 23 U/L (0-50); SODIUM 138 mmol/L (137-145); Total Protein 5.9 g/dL (6.3-8.2)
[2020-05-25] MEDS ORDERED: Sodium Chloride 0.9% 1000 ML 1,000 ML ONE (22:25)
[2020-05-25] MEDS ORDERED: solu-MEDROL 125 MG IV ONE (23:18)
[2020-05-25] MEDS ORDERED: Pepcid 20 MG VIAL IV ONE ×2 (23:18→23:22)
[2020-05-25] MEDS ORDERED: solu-MEDROL 125 MG ONE (23:22)
[2020-05-25 23:38] LABS: Barbiturate,Urine NEGATIVE (NEGATIVE); Benzodiazepine,Urine NEGATIVE (NEGATIVE); Cocaine,Urine NEGATIVE (NEGATIVE); Methadone,Urine NEGATIVE (NEGATIVE); Opiate,Urine NEGATIVE (NEGATIVE); PCP,Urine NEGATIVE (NEGATIVE); THC,Urine NEGATIVE (NEGATIVE)
[2020-05-25 23:40] LABS: Appearance CLOUDY (CLEAR); Bacteria FEW /HPF (NEGATIVE); Bilirubin NEGATIVE (NEGATIVE); Blood NEGATIVE Ery/ul (0-5); Epithelial Cells RARE /HPF (FEW); Glucose NEGATIVE (NEGATIVE); Ketones NEGATIVE (NEGATIVE); Leukocyte Esterase MODERATE (NEGATIVE); Mucus SLIGHT /HPF (NEGATIVE); Nitrite NEGATIVE (NEGATIVE); Protein,Urine Dip NEGATIVE (Negative); Specific Gravity 1.017 (1.005-1.025); Urobilinogen 2 mg/dL (0-1); WBC 51-100 /HPF (0-5)
[2020-05-25 23:42] LABS: INR 1.69 (0.8-3.0); PROTIME 19.2 SECONDS (8.83-12.87)
[2020-05-25] MEDS ORDERED: ROCEPHIN 1 Gm-D5w 50 ml Bag** 1 G/50 ML IVPB IV STA (23:47)
[2020-05-26 00:03] LABS: Amphetamine,Urine POSITIVE (NEGATIVE)
[2020-05-26] MEDS ORDERED: KEFLEX 500 MG PO ONE (00:13)
[2020-05-26] MEDS ORDERED: KEFLEX 500 MG ONE (00:27)
[2020-05-26 00:36] VITALS: O2SAT 95
[2020-05-26 01:24] VITALS: BP 137/62; PULSE 82
--- NOTE | 2020-05-26 09:20 | XRAY ---
Indication: Acute mental status change. Headache. No known injury. Multiple contiguous axial images obtained through the head without contrast. Comparison: November 04, 2017. There remains age-appropriate global atrophy and minimal periventricular degenerative micro-ischemia. No acute intracranial hemorrhage, abnormal extra-axial fluid collection, or mass effect. Fourth ventricle is midline without hydrocephalus. Bony calvarium intact. Minimal right maxillary and left ethmoid sinus mucosal thickening. Mastoid air cells are clear. Impression: Continued nonacute senile brain. Incidental minimal paranasal sinus disease.
--- NOTE | 2020-05-26 09:38 | XRAY ---
Indication: Acute mental status change. Comparison: January 14, 2012. Portable chest remains hyperinflated and clear. Heart is not enlarged. Bony thorax intact again with mild degenerative changes. No new/acute findings.
--- NOTE | 2020-05-26 09:39 | XRAY ---
Indication: DVT. Current blood thinner therapy. Two-dimensional sonogram and color Doppler imaging of the major venous vessels of the right leg was performed. Comparison: March 31, 2016. Again no thrombus seen in the examined deep venous vessels of the right leg including greater saphenous vein. Veins demonstrate normal compressibility. Venous waveforms are normal with and without augmentation. Impression: Right leg remains negative for DVT. Comment: Preliminary report was given.
== END 2020-05-26 01:15 | disposition home or self-care (01) ==
LOC: ED 21:20
DX: F15.10 Other stimulant abuse, uncomplicated (principal); N39.0 Urinary tract infection, site not specified; T78.40XA Allergy, unspecified, initial encounter; L50.9 Urticaria, unspecified; Z79.899 Other long term (current) drug therapy
CPT/HCPCS: 36415; 70450; 71045; 80053; 80307; 81001; 84484; 85025; 85610; 87086; 93971; 96374; 96375; 99284; 99291; J2930; A9270-GY

== ENCOUNTER 2020-10-09 14:27 | Emergency (ER) | payer MEDICAID ==
--- NOTE | 2020-10-09 14:54 | ERPHSYRPT ---
- History of Present Illness Time Seen by Provider: 10/09/20 16:26 Source: patient, EMS Patient Subjective Stated Complaint: Behavioral problems Triage Nursing Assessment: Patient brought into ED via EMS and transferred to bed with asssit of 1. Patient A+O X 3 with intermittent confusion. Patient states he has been a daily drug user for one year. Patient states he injects meth and narcotics, uses cocaine and narcotics. Patient states he is ready to get clean. Patient denies suicidal or homicidal ideation. Patient denies pain or discomfort. Patient has track neves to [facility]. Physician History: Patient states he has been a daily drug user for one year. Patient states he injects meth and narcotics, uses cocaine and narcotics. Patient states he is ready to get clean. Patient denies suicidal or homicidal ideation. Patient denies pain or discomfort. Patient has track neves to [facility] Associated Symptoms: denies symptoms Allergies/Adverse Reactions: acetaminophen [From Vicodin] Allergy (Intermediate, Verified 10/09/20 14:32) Hives MAKES HARD TO BREATHE ciprofloxacin [From Cipro] Allergy (Intermediate, Verified 10/09/20 14:32) INFLAMES TENDONS ciprofloxacin HCl [From Cipro] Allergy (Intermediate, Verified 10/09/20 14:32) INFLAMES TENDONS diltiazem HCl [From Cardizem] Allergy (Intermediate, Verified 10/09/20 14:32) Hives EDEMA hydrocodone bitartrate [From Vicodin] Allergy (Intermediate, Verified 10/09/20 14:32) Hives MAKES HARD TO BREATHE levofloxacin [From Levaquin] Allergy (Intermediate, Verified 10/09/20 14:32) INFLAMES TENDONS sertraline HCl [From Zoloft] Allergy (Intermediate, Verified 10/09/20 14:32) HIGH HEART RATE Sulfa (Sulfonamide Antibiotics) [Sulfa(Sulfonamide Antibiotics)] Allergy (Intermediate, Verified 10/09/20 14:32) Hives zolpidem tartrate [From Ambien] Adverse Reaction (Intermediate, Verified 10/09/20 14:32) "DROGGY ALL DAY LONG" Home Medications: Albuterol Sulfate [Proair Hfa] 8.5 gm IH BID PRN PRN 03/31/16 [History] Loratadine 10 mg [Claritin 10 mg] 10 mg PO DAILY 03/31/16 [History] Omeprazole 20 MG [Prilosec 20 mg] 40 mg PO HS 03/31/16 [History] Tamsulosin HCl [Flomax] 0.4 mg PO DAILY 03/31/16 [History] Citalopram Hydrobromide [Citalopram HBr] 40 mg PO DAILY 05/30/17 [History] Verapamil HCl 180 mg PO DAILY 05/30/17 [History] Clonidine HCl 0.1 mg [Catapres 0.1 MG] 1 tab PO TID 05/25/20 [History] Donepezil HCl 10 mg [Aricept 10 MG] 05/25/20 [History] Fenofibrate Nanocrystallized [Fenofibrate] 1 tab PO DAILY 05/25/20 [History] Gabapentin 1 cap PO TID 05/25/20 [History] Warfarin Sodium [Coumadin] 1 tab PO DAILY 05/25/20 [History] Hx Tetanus, Diphtheria Vaccination/Date Given: Yes Hx Influenza Vaccination/Date Given: No Hx Pneumococcal Vaccination/Date Given: No Immunizations Up to Date: Yes Travel Risk - International Travel Have you traveled outside of the country in past 3 weeks: No - Coronavirus Screening Are you exhibiting any of the following symptoms?: No Close contact with a COVID-19 positive Pt in past 14-21 Days: No - Past Medical History Pertinent Past Medical History: Yes Neurological History: No Pertinent History ENT History: No Pertinent History Cardiac History: Deep Vein Thrombosis, Hypertension, Myocardial Infarction (SD) Respiratory History: COPD, Emphysema, Pulmonary Embolism Endocrine Medical History: No Pertinent History Musculoskeletal History: Degenerative Disk Disease GI Medical History: No Pertinent History History: Bladder Cancer Psycho-Social History: Anxiety, Attention Deficit Disorder, Bipolar, Depression Male Reproductive Disorders: No Pertinent History - Past Surgical History Past Surgical History: Yes Gastrointestinal: Hernia Repair Musculoskeletal: Joint Replacement Other Surgical History: CANCER TUMOR REMOVED FROM BLADDER, TONSILLECTOMY; RIGHT HIP. REPLACEMENT - Social History Smoking Status: Current every day smoker How long have you smoked: 0.5 Exposure to second hand smoke: Yes Drug Use: marijuana, methamphetamines, narcotics, cocaine Patient Lives Alone: Yes - Review of Systems Constitutional: No Symptoms Eyes: No Symptoms Ears, Nose, & Throat: No Symptoms Respiratory: No Symptoms Cardiac: No Symptoms Abdominal/Gastrointestinal: No Symptoms Genitourinary Symptoms: No Symptoms Musculoskeletal: No Symptoms Skin: No Symptoms Neurological: No Symptoms Psychological: No Symptoms - Nursing Vital Signs Nursing Vital Signs: Initial Vital Signs Pulse Rate 76 10/09/20 14:38 Respiratory Rate 18 10/09/20 14:38 Blood Pressure 91/61 10/09/20 14:38 O2 Sat by Pulse Oximetry 92 L 10/09/20 14:38 Pain Scale Pain Intensity 0 - Physical Exam General Appearance: no apparent distress Eyes, Ears, Nose, Throat Exam: normal ENT inspection Neck Exam: normal inspection Respiratory Exam: normal breath sounds Cardiovascular Exam: regular rate/rhythm Gastrointestinal/Abdominal Exam: soft Extremities Exam: normal inspection Neurological Exam: alert, normal mood/affect, calm Behavior/Eye Contact/Speech: alert & cooperative Thoughts/Hallucinations: normal thought pattern Skin Exam: normal color SpO2 Interpretation: normal SpO2: 92 - Course Nursing assessment & vital signs reviewed: Yes - Radiology Exams Chest X-ray Interpretation: Reviewed by me, Negative, No Pneumonia, No Pneumothorax Ordered Tests: Active Orders 24 hr Category Date Time Status EKG-ER Only STAT Care 10/09/20 14:54 Active IV Insertion STAT Care 10/09/20 15:00 Active Tele-Health Consult ROUTINE Cons 10/09/20 14:54 Active CHEST 1 VIEW (PORTABLE) Stat Exams 10/09/20 14:55 Taken ACETAMINOPHEN Stat Lab 10/09/20 15:35 Completed CBC W DIFF Stat Lab 10/09/20 15:35 Completed CMP Stat Lab 10/09/20 15:35 Completed ETHYL ALCOHOL Stat Lab 10/09/20 15:35 Completed TROPONIN Q3H Lab 10/09/20 15:35 Completed TROPONIN Q3H Lab 10/09/20 18:15 Ordered TROPONIN Q3H Lab 10/09/20 21:15 Ordered TROPONIN Q3H Lab 10/10/20 00:15 Ordered TROPONIN Q3H Lab 10/10/20 03:15 Ordered UA W/RFX UR CULTURE Stat Lab 10/09/20 15:00 Completed Urine Triage Profile Stat Lab 10/09/20 15:00 Completed Medication Summary Generic Name Dose Route Start Last Admin Trade Name Freq PRN Reason Stop Dose Admin Ceftriaxone Sodium/Dextrose 1 g in 50 mls @ 100 mls/hr 10/09/20 16:16 10/09/20 16:22 Rocephin 1 Gm-D5w 50 Ml Bag IV 10/09/20 16:45 100 ml/hr STAT STA 100 mls/hr Administration Discontinued Medications Generic Name Dose Route Start Last Admin Trade Name Mary PRN Reason Stop Dose Admin Diphenhydramine HCl 25 mg 10/09/20 15:00 10/09/20 15:11 Benadryl 50 Mg/Ml IV 10/09/20 15:01 25 mg STAT ONE Administration Diphenhydramine HCl Confirm 10/09/20 15:09 Benadryl 50 Mg/Ml Administered 10/09/20 15:10 Dose 50 mg .ROUTE .STK-MED ONE Sodium Chloride 1,000 mls @ 999 mls/hr 10/09/20 15:00 10/09/20 16:15 Sodium Chloride 0.9% 1000 Ml IV 10/09/20 16:00 Infused .Q1H1M STA Infusion Sodium Chloride Confirm 10/09/20 15:09 Sodium Chloride 0.9% 1000 Ml Administered 10/09/20 15:10 Dose 1,000 mls @ ud .ROUTE .STK-MED ONE Ceftriaxone Sodium/Dextrose Confirm 10/09/20 16:19 Rocephin 1 Gm-D5w 50 Ml Bag Administered 10/09/20 16:20 Dose 1 g in 50 mls @ ud IV .STK-MED ONE Lab/Rad Data: Laboratory Result Diagrams 10/09/20 15:35 10/09/20 15:35 Laboratory Results 10/09/20 10/09/20 10/09/20 Range/Units 15:35 15:35 15:35 WBC 8.7 (4.0-10.5) K/mm3 RBC 4.96 (4.1-5.6) M/mm3 Hgb 14.7 (12.5-18.0) gm/dl Hct 47.2 (42-50) % MCV 95.2 (78-100) fl MCH 29.6 (26-32) pg MCHC 31.1 L (32-36) g/dl RDW 15.0 H (11.5-14.0) % Plt Count 258 (150-450) K/mm3 MPV 9.4 (7.5-11.0) fl Gran % 68.5 H (36.0-66.0) % Eos # (Auto) 0.20 (0-0.5) Absolute Lymphs (auto) 1.84 (1.0-4.6) Absolute Monos (auto) 0.68 (0.0-1.3) Lymphocytes % 21.1 L (24.0-44.0) % Monocytes % 7.8 (0.0-12.0) % Eosinophils % 2.3 (0.00-5.0) % Basophils % 0.3 (0.0-0.4) % Absolute Granulocytes 5.98 (1.4-6.9) Basophils # 0.03 (0-0.4) Sodium 136 L (137-145) mmol/L Potassium 4.0 (3.5-5.1) mmol/L Chloride 106 (98-107) mmol/L Carbon Dioxide 24 (22-30) mmol/L Anion Gap 9.9 (5-15) MEQ/L BUN 26 H (9-20) mg/dL Creatinine 0.88 (0.66-1.25) mg/dL Estimated GFR > 60.0 ML/MIN Glucose 127 H (74-106) mg/dL Calcium 9.3 (8.4-10.2) mg/dL Total Bilirubin 0.20 (0.2-1.3) mg/dL AST 29 (17-59) U/L ALT 31 (0-50) U/L Alkaline Phosphatase 39 (38-126) U/L Troponin I < 0.012 (0.000-0.034) ng/mL Serum Total Protein 6.4 (6.3-8.2) g/dL Albumin 3.8 (3.5-5.0) g/dL Urine Color (YELLOW) Urine Appearance (CLEAR) Urine pH (5-6) Ur Specific [place] (1.005-1.025) Urine Protein (Negative) Urine Ketones (NEGATIVE) Urine Blood (0-5) Quinn/ul Urine Nitrite (NEGATIVE) Urine Bilirubin (NEGATIVE) Urine Urobilinogen (0-1) mg/dL Ur Leukocyte Esterase (NEGATIVE) Urine WBC (Auto) (0-5) /HPF Urine RBC (Auto) (0-2) /HPF U Epithel Cells (Auto) (FEW) /HPF Urine Bacteria (Auto) (NEGATIVE) /HPF Urine Mucus (Auto) (NEGATIVE) /HPF Urine Culture Reflexed (NO) Urine Glucose (NEGATIVE) mg/dL Urine Opiates Level (NEGATIVE) Ur Methadone (NEGATIVE) Acetaminophen < 10 L (10-30) ug/ml Urine Barbiturates (NEGATIVE) Ur Phencyclidine (PCP) (NEGATIVE) Urine Amphetamine (NEGATIVE) U Benzodiazepine Level (NEGATIVE) Urine Cocaine (NEGATIVE) Urine Marijuana (THC) (NEGATIVE) Ethyl Alcohol < 10 (0-10) mg/dL 10/09/20 10/09/20 Range/Units 15:00 15:00 WBC (4.0-10.5) K/mm3 RBC (4.1-5.6) M/mm3 Hgb (12.5-18.0) gm/dl Hct (42-50) % MCV (78-100) fl MCH (26-32) pg MCHC (32-36) g/dl RDW (11.5-14.0) % Plt Count (150-450) K/mm3 MPV (7.5-11.0) fl Gran % (36.0-66.0) % Eos # (Auto) (0-0.5) Absolute Lymphs (auto) (1.0-4.6) Absolute Monos (auto) (0.0-1.3) Lymphocytes % (24.0-44.0) % Monocytes % (0.0-12.0) % Eosinophils % (0.00-5.0) % Basophils % (0.0-0.4) % Absolute Granulocytes (1.4-6.9) Basophils # (0-0.4) Sodium (137-145) mmol/L Potassium (3.5-5.1) mmol/L Chloride (98-107) mmol/L Carbon Dioxide (22-30) mmol/L Anion Gap (5-15) MEQ/L BUN (9-20) mg/dL Creatinine (0.66-1.25) mg/dL Estimated GFR ML/MIN Glucose (74-106) mg/dL Calcium (8.4-10.2) mg/dL Total Bilirubin (0.2-1.3) mg/dL AST (17-59) U/L ALT (0-50) U/L Alkaline Phosphatase (38-126) U/L Troponin I (0.000-0.034) ng/mL Serum Total Protein (6.3-8.2) g/dL Albumin (3.5-5.0) g/dL Urine Color ELLEN (YELLOW) Urine Appearance SLIGHTLY CLOUDY (CLEAR) Urine pH 6.0 (5-6) Ur Specific [place] 1.023 (1.005-1.025) Urine Protein 30 (Negative) Urine Ketones TRACE (NEGATIVE) Urine Blood NEGATIVE (0-5) Quinn/ul Urine Nitrite NEGATIVE (NEGATIVE) Urine Bilirubin NEGATIVE (NEGATIVE) Urine Urobilinogen 2 (0-1) mg/dL Ur Leukocyte Esterase MODERATE (NEGATIVE) Urine WBC (Auto) 26-50 (0-5) /HPF Urine RBC (Auto) 6-10 (0-2) /HPF U Epithel Cells (Auto) FEW (FEW) /HPF Urine Bacteria (Auto) RARE (NEGATIVE) /HPF Urine Mucus (Auto) SLIGHT (NEGATIVE) /HPF Urine Culture Reflexed NO (NO) Urine Glucose NEGATIVE (NEGATIVE) mg/dL Urine Opiates Level NEGATIVE (NEGATIVE) Ur Methadone NEGATIVE (NEGATIVE) Acetaminophen (10-30) ug/ml Urine Barbiturates NEGATIVE (NEGATIVE) Ur Phencyclidine (PCP) NEGATIVE (NEGATIVE) Urine Amphetamine POSITIVE (NEGATIVE) U Benzodiazepine Level NEGATIVE (NEGATIVE) Urine Cocaine NEGATIVE (NEGATIVE) Urine Marijuana (THC) POSITIVE (NEGATIVE) Ethyl Alcohol (0-10) mg/dL - Progress Progress: improved Counseled pt/family regarding: lab results, diagnosis, need for follow-up, rad results - Departure Departure Disposition: Home Clinical Impression: Acute pyelonephritis, Amphetamine use disorder, moderate, dependence, Marijuana dependence Condition: Stable Critical Care Time: Yes Critical Care Time(excluding separately billable procedures): Critical 30-74 mins Referrals: KWADWO DONOVAN [Primary Care Provider] - Follow Up with PCP/3 days Instructions: Marijuana Use and Addiction (DC), Methamphetamine, Meth Mouth, Kidney Infection (DC) Additional Instructions: Discharge/Care Plan ABNERJD SANDY was seen on 10/09/20 in the Emergency Room. The patient was counseled regarding Diagnosis,Lab results, Imaging studies, need for follow up and when to return to the Emergency Room. Prescriptions given: Discharge Note I have spoken with the patient and/or caregivers. I have explained the patient's condition, diagnosis and treatment plan based on the information available to me at this time. I have answered the patient's and/or caregiver's questions and addressed any concerns. The patient and/or caregivers have as good understanding of the patient's diagnosis, condition and treatment plan as can be expected at this point. The vital signs have been stable. The patient's condition is stable and appropriate for discharge from the emergency department. The patient will pursue further outpatient evaluation with the primary care physician or other designated or consulting physician as outlined in the d ischarge instructions. The patient and/or caregivers are agreeable to this plan of care and follow-up instructions have been explained in detail. The patient and/or caregivers have received these instruction. The patient/and or caregivers are aware that any significant change in condition or worsening of symptoms should prompt an immediate return to this or the closest emergency department or call 911. JD LEVINE was seen on 10/09/20 n the Emergency Room. At that time you were treated for an emergent condition, during your visit Laboratory, Radiology and/or other procedures may have been ordered. It is very important that you follow-up with your Primary Care Physician KWADWO DONOVAN within the next 24-48 hours to review your Emergency Room visit and the final results of testing that was ordered. Some test results such as Urine Cultures, Blood Cultures, and other cultures if ordered will not be finalized for 24-48 hours. If you do not have a Primary Care Provider please call the medical records department at [phone] to obtain a copy of your results or you may sign into our patient portal to obtain these results by visiting us @ [email or web address] and completing the following steps: 1. Click on the Patient Portal link 2. Click the Patient Self Enrollment Link to complete the enrollment form and entering your 3. Once the enrollment form is completed you will receive an email with a temporary ID and password at the email address you provided. 4. Next choose a user name and password. Your user name must be at least 4 characters long and your password must be at least 4 characters long. 5. Choose a security question from the list and provide your answer to the question. If you already have signed into the Health Portal you may access your Health Care Information 13/05 by the following steps: 1. Login to our website @ [email or web address] 2. Enter your original user name and password. FAQS The [facility] Health Portal is an online tool that contains your Lab Results, Radiology Reports, Visit History, Discharge Instructions and Health Summary Lab and Radiology Results will not be available for 72 hours on the portal. The Portal is a secure site, passwords are encryted and URLs are re-written so they cannot be copied and pasted. You and authorized family members are the only ones who can access your Portal. Also there is a timeout feature that protects your information if you leave the Portal page open. If you have technical difficulty please use the Contact Us link on the page this will allow you to submit any questions you have regarding the Portal or you may contact the Medical Record Department at [phone]. Prescriptions: Smz/Tmp Ds Tablet [Bactrim Ds Tablet] 1 udtab PO BID #20 tablet
[2020-10-09] MEDS ORDERED: BENADRYL 50 MG/ML IV ONE (15:00)
[2020-10-09] MEDS ORDERED: Sodium Chloride 0.9% 1000 ML 1,000 ML IV STA (15:00)
[2020-10-09] MEDS ORDERED: Sodium Chloride 0.9% 1000 ML 1,000 ML ONE (15:09)
[2020-10-09] MEDS ORDERED: BENADRYL 50 MG/ML ONE (15:09)
[2020-10-09 15:51] LABS: Absolute Neutrophil Ct (ANC) 5.98 (1.4-6.9); BASOPHIL % 0.3 % (0.0-0.4); Basophil (Absolute #) 0.03 (0-0.4); Eosinophil % 2.3 % (0.00-5.0); Hematocrit 47.2 % (42-50); Hemoglobin 14.7 gm/dl (12.5-18.0); Lymphocyte (Absolute #) 1.84 (1.0-4.6); Lymphocytes % 21.1 % (24.0-44.0); Mean Cell Volume 95.2 fl (78-100); Mean Corpuscular Hemoglobin 29.6 pg (26-32); Mean Corpuscular Hgb Concent. 31.1 g/dl (32-36); Mean Platelet Volume 9.4 fl (7.5-11.0); Monocyte (Absolute #) 0.68 (0.0-1.3); Monocytes % 7.8 % (0.0-12.0); Neutrophil % 68.5 % (36.0-66.0); Platelet Count 258 K/mm3 (150-450); Red Blood Count 4.96 M/mm3 (4.1-5.6); White Blood Count 8.7 K/mm3 (4.0-10.5)
[2020-10-09 15:56] LABS: ALBUMIN 3.8 g/dL (3.5-5.0); ALKALINE PHOSPHATASE 39 U/L (38-126); ANION GAP 9.9 MEQ/L (5-15); BLOOD UREA NITROGEN 26 mg/dL (9-20); CHLORIDE 106 mmol/L (98-107); Calcium 9.3 mg/dL (8.4-10.2); Carbon Dioxide 24 mmol/L (22-30); Creatinine 1 0.88 mg/dL (0.66-1.25); EST GLOMERULAR FILTRATION RATE > 60.0 ML/MIN; Glucose 127 mg/dL (74-106); SGOT/AST 29 U/L (17-59); SGPT/ALT 31 U/L (0-50); SODIUM 136 mmol/L (137-145); Total Protein 6.4 g/dL (6.3-8.2)
[2020-10-09 15:57] LABS: ACETAMINOPHEN < 10 ug/ml (10-30); ETHYL ALCOHOL < 10 mg/dL (0-10)
[2020-10-09 16:01] LABS: Appearance SLIGHTLY CLOUDY (CLEAR); Bacteria RARE /HPF (NEGATIVE); Bilirubin NEGATIVE (NEGATIVE); Blood NEGATIVE Ery/ul (0-5); Epithelial Cells FEW /HPF (FEW); Glucose NEGATIVE (NEGATIVE); Ketones TRACE (NEGATIVE); Leukocyte Esterase MODERATE (NEGATIVE); Mucus SLIGHT /HPF (NEGATIVE); Nitrite NEGATIVE (NEGATIVE); Protein,Urine Dip 30 (Negative); Specific Gravity 1.023 (1.005-1.025); Urobilinogen 2 mg/dL (0-1); WBC 26-50 /HPF (0-5)
[2020-10-09 16:08] LABS: Amphetamine,Urine POSITIVE (NEGATIVE); Barbiturate,Urine NEGATIVE (NEGATIVE); Benzodiazepine,Urine NEGATIVE (NEGATIVE); Cocaine,Urine NEGATIVE (NEGATIVE); Methadone,Urine NEGATIVE (NEGATIVE); Opiate,Urine NEGATIVE (NEGATIVE); PCP,Urine NEGATIVE (NEGATIVE); THC,Urine POSITIVE (NEGATIVE)
[2020-10-09] MEDS ORDERED: ROCEPHIN 1 Gm-D5w 50 ml Bag** 1 G/50 ML IVPB IV STA (16:16)
[2020-10-09] MEDS ORDERED: ROCEPHIN 1 Gm-D5w 50 ml Bag** 1 G/50 ML IVPB IV ONE (16:19)
[2020-10-09 16:26] VITALS: BP 95/64; PULSE 64
[2020-10-09 16:58] VITALS: O2SAT 93
--- NOTE | 2020-10-09 19:38 | XRAY ---
Indication: Drug use. Psych clearance. Comparison: May 25, 2020. Portable apical lordotic chest remains clear. Heart is not enlarged. Bony thorax intact. No new/acute findings. Impression: Continued nonacute chest.
== END 2020-10-09 18:32 | disposition home or self-care (01) ==
LOC: ED 14:27
DX: N10 Acute pyelonephritis (principal); F15.90 Other stimulant use, unspecified, uncomplicated; F15.20 Other stimulant dependence, uncomplicated; F19.20 Other psychoactive substance dependence, uncomplicated; F12.20 Cannabis dependence, uncomplicated
CPT/HCPCS: 36000; 36415; 71045; 80053; 80307; 81001; 84484; 85025; 93005; 96360; 96365; 96374; 99285; 99291; J0696; J1200; G0480

== ENCOUNTER 2021-06-09 13:29 | Inpatient (IN) | payer MEDICAID ==
--- NOTE | 2021-06-09 13:44 | ERPHSYRPT ---
- History of Present Illness Time Seen by Provider: 06/09/21 13:44 Source: patient, EMS Exam Limitations: clinical condition Physician History: This is a 66-year-old white male who has a history of hypertension, COPD and GERD. He also is on warfarin medication because of a history of DVT. He lives with a roommate who tested positive for Covid. The last 2 to 3 days this patient has had worsening symptoms of cough, shortness of breath, fever, weakness, myalgias and arthralgias. He is also had some vomiting and diarrhea as well. He presents to the emergency department via EMS with oxygen saturations of 77% at his home on room air. With oxygen supplementation of 6 L NC he went up to 99% and on 3 L he is in our emergency department 93 to 94%. The patient denies vaccination. Timing/Duration: day(s) (2 to 3) Activities at Onset: none Severity of Dyspnea-Max: moderate Severity of Dyspnea-Current: moderate Possible Cause: no prior episodes Modifying Factors: Improves With: nothing Associated Symptoms: cough, fever, weakness, chills Allergies/Adverse Reactions: ciprofloxacin [From Cipro] Allergy (Intermediate, Verified 06/09/21 13:55) INFLAMES TENDONS ciprofloxacin HCl [From Cipro] Allergy (Intermediate, Verified 06/09/21 13:55) INFLAMES TENDONS diltiazem HCl [From Cardizem] Allergy (Intermediate, Verified 06/09/21 13:55) Hives EDEMA levofloxacin [From Levaquin] Allergy (Intermediate, Verified 06/09/21 13:55) INFLAMES TENDONS sertraline HCl [From Zoloft] Allergy (Intermediate, Verified 06/09/21 13:55) HIGH HEART RATE Sulfa (Sulfonamide Antibiotics) [Sulfa(Sulfonamide Antibiotics)] Allergy (Intermediate, Verified 06/09/21 13:55) Hives zolpidem tartrate [From Ambien] Adverse Reaction (Intermediate, Verified 06/09/21 13:55) "DROGGY ALL DAY LONG" Home Medications: Albuterol Sulfate [Proair Hfa] 8.5 gm IH BID PRN PRN 03/31/16 [History] Loratadine 10 mg [Claritin 10 mg] 10 mg PO DAILY 03/31/16 [History] Omeprazole 20 MG [Prilosec 20 mg] 40 mg PO HS 03/31/16 [History] Tamsulosin HCl [Flomax] 0.4 mg PO DAILY 03/31/16 [History] Citalopram Hydrobromide [Citalopram HBr] 40 mg PO DAILY 05/30/17 [History] Verapamil HCl 180 mg PO DAILY 05/30/17 [History] Clonidine HCl 0.1 mg [Catapres 0.1 MG] 1 tab PO TID 05/25/20 [History] Donepezil HCl 10 mg [Aricept 10 MG] 1 ea DAILY 05/25/20 [History] Fenofibrate Nanocrystallized [Fenofibrate] 1 tab PO DAILY 05/25/20 [History] Gabapentin 1 cap PO TID 05/25/20 [History] Warfarin Sodium [Coumadin] 1 tab PO DAILY 05/25/20 [History] Hx Tetanus, Diphtheria Vaccination/Date Given: Yes Hx Influenza Vaccination/Date Given: No Hx Pneumococcal Vaccination/Date Given: No Travel Risk - International Travel Have you traveled outside of the country in past 3 weeks: No - Coronavirus Screening Are you exhibiting any of the following symptoms?: Yes Symptoms: Fever, Cough: New Onset, Shortness of Breath, Vomiting/Diarrhea, Headaches/Body Aches/Fatigue - Review of Systems Constitutional: Fever, Chills, Weakness Eyes: No Symptoms Ears, Nose, & Throat: No Symptoms Respiratory: Cough Cardiac: No Symptoms Abdominal/Gastrointestinal: Nausea, Vomiting, Diarrhea Genitourinary Symptoms: No Symptoms Musculoskeletal: Arthralgias, Myalgias Skin: No Symptoms Neurological: No Symptoms Psychological: No Symptoms Endocrine: No Symptoms Hematologic/Lymphatic: No Symptoms Immunological/Allergic: No Symptoms All Other Systems: Reviewed and Negative - Past Medical History Pertinent Past Medical History: Yes Neurological History: No Pertinent History ENT History: No Pertinent History Cardiac History: Deep Vein Thrombosis, Hypertension, Myocardial Infarction ([place]) Respiratory History: COPD, Emphysema, Pulmonary Embolism Endocrine Medical History: No Pertinent History Musculoskeletal History: Degenerative Disk Disease GI Medical History: No Pertinent History History: Bladder Cancer Psycho-Social History: Anxiety, Attention Deficit Disorder, Bipolar, Depression Male Reproductive Disorders: No Pertinent History - Past Surgical History Past Surgical History: Yes Gastrointestinal: Hernia Repair Musculoskeletal: Joint Replacement Other Surgical History: CANCER TUMOR REMOVED FROM BLADDER, TONSILLECTOMY; RIGHT HIP. REPLACEMENT - Social History Smoking Status: Current every day smoker How long have you smoked: 0.5 Exposure to second hand smoke: Yes Drug Use: marijuana, methamphetamines, narcotics, cocaine Patient Lives Alone: Yes - Nursing Vital Signs Nursing Vital Signs: Initial Vital Signs Temperature 100.6 F 06/09/21 13:44 Pulse Rate 69 06/09/21 13:44 Respiratory Rate 16 06/09/21 13:44 Blood Pressure 102/61 06/09/21 13:44 O2 Sat by Pulse Oximetry 95 06/09/21 13:44 Pain Scale Pain Intensity 5 - Physical Exam General Appearance: mild distress, alert, anxiety Eye Exam: PERRL/EOMI, eyes nml inspection Ears, Nose, Throat Exam: hearing grossly normal, normal ENT inspection, normal pharynx Neck Exam: normal inspection, non-tender, supple, full range of motion Respiratory Exam: normal breath sounds, lungs clear, respiratory distress, airway intact (Mild) Cardiovascular/Chest Exam: normal heart sounds, regular rate/rhythm Abdominal/Gastrointestinal Exam: soft, normal bowel sounds, No tenderness, No guarding, No pulsatile mass Rectal Exam: not done Extremity Exam: non-tender, normal range of motion, normal inspection Neurologic Exam: alert, oriented x 3, cooperative, balance staff staker II-XII nml as tested, normal mood/affect, nml cerebellar function, nml station & gait, sensation nml Skin Exam: normal color, warm, dry Lymphatic Exam: No adenopathy SpO2 Interpretation: borderline oxygenation O2 Delivery: Nasal Cannula - Course Nursing assessment & vital signs reviewed: Yes EKG Interpreted by Me: RATE (76), Sinus Rhythm, Right Orem Deviation, NORMAL INTERVALS, NORMAL QRS, NORMAL ST-T, Other (Note acute ischemic changes on today' s EKG. When compared to EKG dated 10/09/2020 there is no significant change.) Ordered Tests: Active Orders 24 hr Category Date Time Status EKG-ER Only STAT Care 06/09/21 13:45 Active IV Insertion STAT Care 06/09/21 13:45 Active IV Insertion-2nd Peripheral STAT Care 06/09/21 13:55 Active Isolation, Initiate & Maintain STAT Care 06/09/21 13:45 Active Oxygen-ED Only Nasal Cannula 4 lpm Care 06/09/21 13:55 Active Pulse Oximetry (ED) STAT Care 06/09/21 13:45 Active CHEST 1 VIEW (PORTABLE) Stat Exams 06/09/21 13:45 Completed BLOOD CULTURE Stat Lab 06/09/21 14:05 Received CBC W DIFF Stat Lab 06/09/21 11:45 Completed CMP Stat Lab 06/09/21 14:05 Completed D-DIMER QUANTITATIVE Stat Lab 06/09/21 14:05 Completed Ferritin Stat Lab 06/09/21 14:05 Completed LDH-LACTATE DEHYDROGENASE Stat Lab 06/09/21 14:05 Completed Lactic Acid Stat Lab 06/09/21 13:45 Completed [place] Screen Stat Lab 06/09/21 11:45 Completed TROPONIN Q3H Lab 06/09/21 11:45 Completed TROPONIN Q3H Lab 06/09/21 17:00 Ordered TROPONIN Q3H Lab 06/09/21 20:00 Ordered TROPONIN Q3H Lab 06/09/21 23:00 Ordered TROPONIN Q3H Lab 06/10/21 02:00 Ordered UA W/RFX UR CULTURE Stat Lab 06/09/21 13:45 Ordered Respiratory MDI STAT RT 06/09/21 13:47 Active Respiratory Therapy Assessment DAILY RT 06/09/21 14:27 Active Transfer Order Routine Transfer 06/09/21 Ordered Medication Summary Generic Name Dose Route Start Last Admin Trade Name Freq PRN Reason Stop Dose Admin Sodium Chloride 1,000 mls @ 100 mls/hr 06/09/21 13:45 06/09/21 13:58 Sodium Chloride 0.9% 1000 Ml IV 07/09/21 13:44 100 mls/hr .Q10H USHA Administration Discontinued Medications Generic Name Dose Route Start Last Admin Trade Name Freq PRN Reason Stop Dose Admin Albuterol Sulfate 4 puff 06/09/21 13:47 06/09/21 14:00 Ventolin Common Canister IH 06/09/21 13:48 4 puff STAT ONE Administration Dexamethasone Sodium Phosphate 8 mg 06/09/21 13:47 06/09/21 13:58 Decadron 10mg Inj. IV 06/09/21 13:48 8 mg STAT ONE Administration Dexamethasone Sodium Phosphate Confirm 06/09/21 13:56 Decadron 10mg Inj. Administered 06/09/21 13:57 Dose 10 mg .ROUTE .STK-MED ONE Lab/Rad Data: Laboratory Result Diagrams 06/09/21 11:45 06/09/21 14:05 Laboratory Results 06/09/21 06/09/21 06/09/21 Range/Units 14:39 14:05 14:05 WBC (4.0-10.5) K/mm3 RBC (4.1-5.6) M/mm3 Hgb (12.5-18.0) gm/dl Hct (42-50) % MCV (78-100) fl MCH (26-32) pg MCHC (32-36) g/dl RDW (11.5-14.0) % Plt Count (150-450) K/mm3 MPV (7.5-11.0) fl Gran % (36.0-66.0) % Eos # (Auto) (0-0.5) Absolute Lymphs (auto) (1.0-4.6) Absolute Monos (auto) (0.0-1.3) Lymphocytes % (24.0-44.0) % Monocytes % (0.0-12.0) % Eosinophils % (0.00-5.0) % Basophils % (0.0-0.4) % Absolute Granulocytes (1.4-6.9) Basophils # (0-0.4) D-Dimer (215-500) ng/mL Sodium (137-145) mmol/L Potassium (3.5-5.1) mmol/L Chloride (98-107) mmol/L Carbon Dioxide (22-30) mmol/L Anion Gap (5-15) MEQ/L BUN (9-20) mg/dL Creatinine (0.66-1.25) mg/dL Estimated GFR ML/MIN Glucose (74-106) mg/dL Lactic Acid (0.4-2.0) Calcium (8.4-10.2) mg/dL Ferritin 286 (17.9-464) ng/mL Total Bilirubin (0.2-1.3) mg/dL AST (17-59) U/L ALT (0-50) U/L Alkaline Phosphatase (38-126) U/L Lactate Dehydrogenase (120-246) U/L Troponin I (0.000-0.034) ng/mL Serum Total Protein (6.3-8.2) g/dL Albumin (3.5-5.0) g/dL Monoscreen (Negative) SARS-CoV-2 (PCR) POSITIVE A (NEGATIVE) Group A Strep Antibody NOT DETECTED (NEGATIVE) 06/09/21 06/09/21 06/09/21 Range/Units 14:05 14:05 13:45 WBC (4.0-10.5) K/mm3 RBC (4.1-5.6) M/mm3 Hgb (12.5-18.0) gm/dl Hct (42-50) % MCV (78-100) fl MCH (26-32) pg MCHC (32-36) g/dl RDW (11.5-14.0) % Plt Count (150-450) K/mm3 MPV (7.5-11.0) fl Gran % (36.0-66.0) % Eos # (Auto) (0-0.5) Absolute Lymphs (auto) (1.0-4.6) Absolute Monos (auto) (0.0-1.3) Lymphocytes % (24.0-44.0) % Monocytes % (0.0-12.0) % Eosinophils % (0.00-5.0) % Basophils % (0.0-0.4) % Absolute Granulocytes (1.4-6.9) Basophils # (0-0.4) D-Dimer 950 H* (215-500) ng/mL Sodium 133 L (137-145) mmol/L Potassium 3.9 (3.5-5.1) mmol/L Chloride 105 (98-107) mmol/L Carbon Dioxide 20 L (22-30) mmol/L Anion Gap 12.9 (5-15) MEQ/L BUN 20 (9-20) mg/dL Creatinine 0.85 (0.66-1.25) mg/dL Estimated GFR > 60.0 ML/MIN Glucose 86 (74-106) mg/dL Lactic Acid 0.8 (0.4-2.0) Calcium 7.7 L (8.4-10.2) mg/dL Ferritin (17.9-464) ng/mL Total Bilirubin 0.40 (0.2-1.3) mg/dL AST 53 (17-59) U/L ALT 31 (0-50) U/L Alkaline Phosphatase 36 L (38-126) U/L Lactate Dehydrogenase 291 H (120-246) U/L Troponin I (0.000-0.034) ng/mL Serum Total Protein 5.7 L (6.3-8.2) g/dL Albumin 3.2 L (3.5-5.0) g/dL Monoscreen (Negative) SARS-CoV-2 (PCR) (NEGATIVE) Group A Strep Antibody (NEGATIVE) 06/09/21 06/09/21 06/09/21 Range/Units 11:45 11:45 11:45 WBC 3.4 L (4.0-10.5) K/mm3 RBC 4.94 (4.1-5.6) M/mm3 Hgb 14.6 (12.5-18.0) gm/dl Hct 45.2 (42-50) % MCV 91.5 (78-100) fl MCH 29.6 (26-32) pg MCHC 32.3 (32-36) g/dl RDW 15.5 H (11.5-14.0) % Plt Count 170 (150-450) K/mm3 MPV 9.6 (7.5-11.0) fl Gran % 60.0 (36.0-66.0) % Eos # (Auto) 0 (0-0.5) Absolute Lymphs (auto) 1.08 (1.0-4.6) Absolute Monos (auto) 0.26 (0.0-1.3) Lymphocytes % 32.0 (24.0-44.0) % Monocytes % 7.7 (0.0-12.0) % Eosinophils % 0.0 (0.00-5.0) % Basophils % 0.3 (0.0-0.4) % Absolute Granulocytes 2.03 (1.4-6.9) Basophils # 0.01 (0-0.4) D-Dimer (215-500) ng/mL Sodium (137-145) mmol/L Potassium (3.5-5.1) mmol/L Chloride (98-107) mmol/L Carbon Dioxide (22-30) mmol/L Anion Gap (5-15) MEQ/L BUN (9-20) mg/dL Creatinine (0.66-1.25) mg/dL Estimated GFR ML/MIN Glucose (74-106) mg/dL Lactic Acid (0.4-2.0) Calcium (8.4-10.2) mg/dL Ferritin (17.9-464) ng/mL Total Bilirubin (0.2-1.3) mg/dL AST (17-59) U/L ALT (0-50) U/L Alkaline Phosphatase (38-126) U/L Lactate Dehydrogenase (120-246) U/L Troponin I 0.014 (0.000-0.034) ng/mL Serum Total Protein (6.3-8.2) g/dL Albumin (3.5-5.0) g/dL Monoscreen NEGATIVE (Negative) SARS-CoV-2 (PCR) (NEGATIVE) Group A Strep Antibody (NEGATIVE) - Progress Progress: improved Air Movement: fair Progress Note: 06/09/21 16:35 Chest x-ray shows bilateral interstitial alveolar opacities mid to lower lung bases. Medical decision making: I spoke with Dr. Lester De León, the [facility] hospitalist. I reviewed the patient history, condition, vital signs, laboratory results and chest x-ray findings with him. He accepts him for admission. We will give him low rate intravenous fluid, give him low-dose Lovenox subcutaneously and began remdesivir and dexamethasone. 06/09/21 16:36 Note: This patient is not allergic to acetaminophen and he is not allergic to hy drocodone. Patient does not understand why that is on his chart. Blood Culture(s) Obtained: Yes Antibiotics given: No Discussed with DrVik: Other (Lester Wagoner) Counseled pt/family regarding: lab results, diagnosis, need for follow-up, rad results - Departure Departure Disposition: In-patient Admission Clinical Impression: COVID-19 virus infection, Hypoxia, Fever Condition: Fair Critical Care Time: Yes Critical Care Time(excluding separately billable procedures): Critical 30-74 mins Referrals: KWADWO DONOVAN [Primary Care Provider] -
[2021-06-09] MEDS ORDERED: Sodium Chloride 0.9% 1000 ML 1,000 ML IV SCH (13:45)
[2021-06-09] MEDS ORDERED: VENTOLIN COMMON CANISTER IH ONE (13:47)
[2021-06-09] MEDS ORDERED: DECADRON 10MG INJ. IV ONE (13:47)
[2021-06-09] MEDS ORDERED: DECADRON 10MG INJ. ONE (13:56)
[2021-06-09 14:15] LABS: Absolute Neutrophil Ct (ANC) 2.03 (1.4-6.9); BASOPHIL % 0.3 % (0.0-0.4); Basophil (Absolute #) 0.01 (0-0.4); Eosinophil (Absolute #) 0 (0-0.5); Hematocrit 45.2 % (42-50); Hemoglobin 14.6 gm/dl (12.5-18.0); Lymphocyte (Absolute #) 1.08 (1.0-4.6); Mean Cell Volume 91.5 fl (78-100); Mean Corpuscular Hemoglobin 29.6 pg (26-32); Mean Corpuscular Hgb Concent. 32.3 g/dl (32-36); Mean Platelet Volume 9.6 fl (7.5-11.0); Monocyte (Absolute #) 0.26 (0.0-1.3); Monocytes % 7.7 % (0.0-12.0); Platelet Count 170 K/mm3 (150-450); Red Blood Count 4.94 M/mm3 (4.1-5.6); Red Cell Distribution Width 15.5 % (11.5-14.0); White Blood Count 3.4 K/mm3 (4.0-10.5)
--- NOTE | 2021-06-09 14:25 | XRAY ---
Indication: Cough and short of breath. Comparison: October 09, 2020. Portable chest demonstrates new bilateral mid to lower lung interstitial alveolar opacities without consolidation/large effusion. Heart not enlarged. Bony thorax intact.
[2021-06-09 14:30] LABS: ALBUMIN 3.2 g/dL (3.5-5.0); ALKALINE PHOSPHATASE 36 U/L (38-126); ANION GAP 12.9 MEQ/L (5-15); BLOOD UREA NITROGEN 20 mg/dL (9-20); CHLORIDE 105 mmol/L (98-107); Calcium 7.7 mg/dL (8.4-10.2); Carbon Dioxide 20 mmol/L (22-30); Creatinine 1 0.85 mg/dL (0.66-1.25); EST GLOMERULAR FILTRATION RATE > 60.0 ML/MIN; Glucose 86 mg/dL (74-106); LDH-LACTATE DEHYDROGENASE 291 U/L (120-246); Potassium 3.9 mmol/L (3.5-5.1); SGOT/AST 53 U/L (17-59); SGPT/ALT 31 U/L (0-50); SODIUM 133 mmol/L (137-145); Total Protein 5.7 g/dL (6.3-8.2)
[2021-06-09] MEDS ORDERED: ENOXAPARIN SODIUM SQ ONE (16:44)
[2021-06-09] MEDS ORDERED: HUMULIN R SQ PRN (17:11)
[2021-06-09] MEDS ORDERED: Zofran 4 MG/2 ML VIAL IV PRN (17:11)
[2021-06-09] MEDS ORDERED: REMDESIVIR 200 MG in Sodium Chloride 0.9% 250 ML 250 ML IV ONE (18:00)
[2021-06-09] MEDS: Sodium Chloride 0.9% 1000 ML 1,000 ML IV SCH (19:36)
[2021-06-09] MEDS ORDERED: Ativan 1 MG PO PRN (21:33)
[2021-06-09] MEDS ORDERED: Lomotil PO PRN (21:45)
[2021-06-09 22:24] LABS: Amourphous Crystal FEW /HPF (NEGATIVE); Appearance SLIGHTLY CLOUDY (CLEAR); Bilirubin NEGATIVE (NEGATIVE); Blood NEGATIVE Ery/ul (0-5); Epithelial Cells RARE /HPF (FEW); Glucose >=500 mg/dL (NEGATIVE); Ketones NEGATIVE (NEGATIVE); Leukocyte Esterase NEGATIVE (NEGATIVE); Mucus SLIGHT /HPF (NEGATIVE); Nitrite NEGATIVE (NEGATIVE); Protein,Urine Dip 30 (Negative); Specific Gravity 1.021 (1.005-1.025); Urobilinogen 2 mg/dL (0-1)
[2021-06-09 22:25] LABS: Bacteria NONE SEEN /HPF (NEGATIVE)
[2021-06-09] MEDS: BUMEX 1 MG PO SCH (22:45)
[2021-06-09] MEDS: Flomax 0.4 MG PO SCH (22:46)
[2021-06-09] MEDS: Lyrica 50MG PO SCH (22:47)
[2021-06-09] MEDS: ISOPTIN SR 180MG PO SCH (22:47)
[2021-06-09] MEDS: Mirapex 0.5 MG Tablet PO SCH (22:47)
[2021-06-09] MEDS: Tricor 145 MG PO SCH (22:48)
[2021-06-09] MEDS: zyPREXA 5MG TABLET PO SCH (22:49)
[2021-06-09] MEDS: DECADRON 10MG INJ. IV SCH (22:51)
[2021-06-09] MEDS: Coumadin 3 MG PO SCH (22:53)
[2021-06-10 02:38] LABS: Absolute Neutrophil Ct (ANC) 1.17 (1.4-6.9); Basophil (Absolute #) 0 (0-0.4); Eosinophil (Absolute #) 0 (0-0.5); Hematocrit 42.9 % (42-50); Hemoglobin 13.9 gm/dl (12.5-18.0); Lymphocyte (Absolute #) 0.41 (1.0-4.6); Lymphocytes % 24.1 % (24.0-44.0); Mean Cell Volume 91.1 fl (78-100); Mean Corpuscular Hemoglobin 29.5 pg (26-32); Mean Corpuscular Hgb Concent. 32.4 g/dl (32-36); Mean Platelet Volume 9.2 fl (7.5-11.0); Monocyte (Absolute #) 0.12 (0.0-1.3); Monocytes % 7.1 % (0.0-12.0); Neutrophil % 68.8 % (36.0-66.0); Platelet Count 148 K/mm3 (150-450); Red Blood Count 4.71 M/mm3 (4.1-5.6)
[2021-06-10 02:49] LABS: INR 1.08 (0.8-3.0); PROTIME 12.8 SECONDS (9.4-12.5)
[2021-06-10 02:58] LABS: ALBUMIN 3.1 g/dL (3.5-5.0); ALKALINE PHOSPHATASE 35 U/L (38-126); ANION GAP 10.7 MEQ/L (5-15); BLOOD UREA NITROGEN 18 mg/dL (9-20); CHLORIDE 106 mmol/L (98-107); Calcium 8.2 mg/dL (8.4-10.2); Carbon Dioxide 23 mmol/L (22-30); Creatinine 1 0.68 mg/dL (0.66-1.25); EST GLOMERULAR FILTRATION RATE > 60.0 ML/MIN; Glucose 168 mg/dL (74-106); Potassium 4.2 mmol/L (3.5-5.1); SGOT/AST 50 U/L (17-59); SGPT/ALT 32 U/L (0-50); SODIUM 135 mmol/L (137-145); Total Protein 5.7 g/dL (6.3-8.2)
[2021-06-10 03:05] LABS: White Blood Count 1.7 K/mm3 (4.0-10.5)
[2021-06-10] MEDS: TYLENOL 325 MG PO PRN ×3 (05:00→21:48)
[2021-06-10] MEDS ORDERED: ENOXAPARIN SODIUM SQ SCH (10:00)
[2021-06-10] MEDS: Lyrica 50MG PO SCH ×2 (10:45→21:47)
[2021-06-10] MEDS: DECADRON 10MG INJ. IV SCH ×2 (10:45→21:47)
[2021-06-10] MEDS: Sodium Chloride 0.9% 1000 ML 1,000 ML IV SCH (14:50)
[2021-06-10] MEDS ORDERED: ZOFRAN ODT 4 MG PO PRN (15:13)
[2021-06-10] MEDS: REMDESIVIR 100 MG in Sodium Chloride 0.9% 100 ML BAG 100 ML IV SCH (17:53)
[2021-06-10] MEDS ORDERED: Nitrostat 0.4 MG Tablet SL PRN (19:21)
[2021-06-10] MEDS: BUMEX 1 MG PO SCH (21:46)
[2021-06-10] MEDS: Flomax 0.4 MG PO SCH (21:47)
[2021-06-10] MEDS: ISOPTIN SR 180MG PO SCH (21:47)
[2021-06-10] MEDS: Coumadin 3 MG PO SCH (21:47)
[2021-06-10] MEDS: Mirapex 0.5 MG Tablet PO SCH (21:47)
[2021-06-10] MEDS: zyPREXA 5MG TABLET PO SCH (21:48)
[2021-06-10] MEDS: Tricor 145 MG PO SCH (21:48)
[2021-06-10] MEDS ORDERED: NON-FORMULARY ITEM (Fluticasone Propionate [Flovent Diskus] 50 MCG) IH SCH (22:00)
[2021-06-10] MEDS: VENTOLIN COMMON CANISTER IH PRN (22:32)
[2021-06-11 02:30] LABS: Hematocrit 41.6 % (42-50); Hemoglobin 13.3 gm/dl (12.5-18.0); Mean Cell Volume 91.8 fl (78-100); Mean Corpuscular Hemoglobin 29.4 pg (26-32); Mean Platelet Volume 9.2 fl (7.5-11.0); Platelet Count 164 K/mm3 (150-450); Red Blood Count 4.53 M/mm3 (4.1-5.6); Red Cell Distribution Width 14.9 % (11.5-14.0); White Blood Count 5.6 K/mm3 (4.0-10.5)
[2021-06-11 02:49] LABS: ALKALINE PHOSPHATASE 36 U/L (38-126); ANION GAP 11.5 MEQ/L (5-15); BLOOD UREA NITROGEN 19 mg/dL (9-20); CHLORIDE 108 mmol/L (98-107); Calcium 8.2 mg/dL (8.4-10.2); Carbon Dioxide 23 mmol/L (22-30); Creatinine 1 0.77 mg/dL (0.66-1.25); EST GLOMERULAR FILTRATION RATE > 60.0 ML/MIN; Glucose 139 mg/dL (74-106); Potassium 4.4 mmol/L (3.5-5.1); SGOT/AST 56 U/L (17-59); SGPT/ALT 41 U/L (0-50); SODIUM 138 mmol/L (137-145); Total Protein 5.4 g/dL (6.3-8.2)
[2021-06-11 03:04] LABS: INR 1.18 (0.8-3.0); PROTIME 13.9 SECONDS (9.4-12.5)
[2021-06-11] MEDS: Sodium Chloride 0.9% 1000 ML 1,000 ML IV SCH ×2 (08:15→21:26)
[2021-06-11] MEDS: DECADRON 10MG INJ. IV SCH ×2 (10:02→21:22)
[2021-06-11] MEDS: Lyrica 50MG PO SCH ×2 (10:09→21:22)
[2021-06-11] MEDS: REMDESIVIR 100 MG in Sodium Chloride 0.9% 100 ML BAG 100 ML IV SCH (17:12)
[2021-06-11] MEDS ORDERED: MAALOX ES 30 ML UNIT DOSE PO PRN (21:09)
[2021-06-11] MEDS: BUMEX 1 MG PO SCH (21:20)
[2021-06-11] MEDS: Coumadin 3 MG PO SCH (21:21)
[2021-06-11] MEDS: Flomax 0.4 MG PO SCH (21:22)
[2021-06-11] MEDS: ISOPTIN SR 180MG PO SCH (21:22)
[2021-06-11] MEDS: Mirapex 0.5 MG Tablet PO SCH (21:23)
[2021-06-11] MEDS: Tricor 145 MG PO SCH (21:24)
[2021-06-11] MEDS: TYLENOL 325 MG PO PRN (21:25)
[2021-06-11] MEDS: zyPREXA 5MG TABLET PO SCH (21:25)
[2021-06-12 05:29] LABS: Absolute Neutrophil Ct (ANC) 2.77 (1.4-6.9); Basophil (Absolute #) 0 (0-0.4); Eosinophil (Absolute #) 0 (0-0.5); Hematocrit 42.6 % (42-50); Hemoglobin 13.6 gm/dl (12.5-18.0); Lymphocyte (Absolute #) 0.42 (1.0-4.6); Lymphocytes % 11.6 % (24.0-44.0); Mean Cell Volume 92.2 fl (78-100); Mean Corpuscular Hemoglobin 29.4 pg (26-32); Mean Corpuscular Hgb Concent. 31.9 g/dl (32-36); Mean Platelet Volume 9.5 fl (7.5-11.0); Monocyte (Absolute #) 0.42 (0.0-1.3); Monocytes % 11.6 % (0.0-12.0); Neutrophil % 76.8 % (36.0-66.0); Platelet Count 184 K/mm3 (150-450); Red Blood Count 4.62 M/mm3 (4.1-5.6); Red Cell Distribution Width 14.8 % (11.5-14.0); White Blood Count 3.6 K/mm3 (4.0-10.5)
[2021-06-12 05:37] LABS: INR 1.29 (0.8-3.0); PROTIME 15.2 SECONDS (9.4-12.5)
--- NOTE | 2021-06-12 11:33 | HP ---
CHIEF COMPLAINT: "Can't breathe, fever, exposure to COVID". HISTORY OF PRESENT ILLNESS: The patient is a 66 year-old white male who tested positive for COVID four days ago and he has been short of breath, coughing up productive stuff, sweaty and feeling achy all over. He showed up in our emergency room. Chest x-ray showed bilateral pneumonia typical for COVID. His white count was low. His D-dimer is elevated. He has comorbidities of hypertension, chronic obstructive pulmonary disease, gastroesophageal reflux disease, history of deep vein thrombosis for which he is on some Coumadin. He developed some vomiting and had some diarrhea. In the emergency room, his O2 saturation was 77% on room air, 6 liters 99% and 3 liters he was 93-94%. He has had no vaccination. He had a catheter placed in his bladder. MEDICATIONS: Advair 2 puffs b.i.d., fluticasone propionate 50 mcg h.s., Verapamil, Flomax 0.4 mg h.s., Bumex 0.5 h.s., Pramipexole 0.25 h.s., Lyrica, olanzapine, Fenofibrate, Coumadin 2 mg Saturday, Saturday and 3 mg on the other nights. ALLERGIES: SULFA. CIPROFLOXACIN. CARDIZEM. LEVAQUIN. ZOLOFT. AMBIEN. PAST MEDICAL HISTORY: He also has a history of some mental illness, bipolar. PAST SURGICAL HISTORY: Tonsillectomy. Hip replacement. SOCIAL HISTORY: He still smokes a half pack a day. He had some experimentation with meth, narcotics and cocaine. REVIEW OF SYSTEMS: The patient is sleeping. He is not easily aroused. I can only review what the emergency room doctor has printed out which is pretty well covered. PHYSICAL EXAMINATION: The patient looks much older than his stated age with poor dentation, sweating. CVS: Regular rate. CHEST: Some crackles bilateral, pretty good air flow in his upper lobes. ABDOMEN: Soft. No tenderness, masses or organomegaly. EXTREMITIES: Warm. No edema. No cyanosis. He can move all. IMPRESSION: The patient has bilateral COVID pneumonitis. Comorbidities of hypertension, chronic obstructive pulmonary disease, history of mental illness, history of drug use. PLAN: The patient will be started on his usual medications for COVID including Remdesivir, Decadron, get a pro-time and see if he is anticoagulated adequately, continue his home medications. PROGNOSIS: Fair.
[2021-06-12] MEDS: DECADRON 10MG INJ. IV SCH ×2 (12:31→22:37)
[2021-06-12] MEDS: Lyrica 50MG PO SCH ×2 (12:35→22:38)
[2021-06-12] MEDS: REMDESIVIR 100 MG in Sodium Chloride 0.9% 100 ML BAG 100 ML IV SCH (18:31)
[2021-06-12] MEDS: VENTOLIN COMMON CANISTER IH PRN (19:40)
[2021-06-12] MEDS: ISOPTIN SR 180MG PO SCH (22:05)
[2021-06-12] MEDS: Flomax 0.4 MG PO SCH (22:38)
[2021-06-12] MEDS: zyPREXA 5MG TABLET PO SCH (22:39)
[2021-06-12] MEDS: BUMEX 1 MG PO SCH (22:40)
[2021-06-12] MEDS: Mirapex 0.5 MG Tablet PO SCH (22:41)
[2021-06-12] MEDS: Tricor 145 MG PO SCH (22:41)
[2021-06-12] MEDS: Coumadin 3 MG PO SCH (22:43)
[2021-06-13] MEDS: Sodium Chloride 0.9% 1000 ML 1,000 ML IV SCH (05:00)
[2021-06-13 05:35] LABS: INR 1.5 (0.8-3.0); PROTIME 17.7 SECONDS (9.4-12.5)
[2021-06-13 07:35] VITALS: O2SAT 95
[2021-06-13 08:41] VITALS: BP 91/39; PULSE 55
[2021-06-13] MEDS: DECADRON 10MG INJ. IV SCH (09:51)
[2021-06-13] MEDS: Lyrica 50MG PO SCH (09:55)
--- NOTE | 2021-06-16 12:10 | SSS ---
ADMISSION DIAGNOSIS: 1. COVID-19 PNEUMONIA. 2. BIPOLAR DISORDER. DISCHARGE DIAGNOSIS: 1. COVID-19 PNEUMONIA. 2. BIPOLAR DISORDER. HISTORY OF PRESENT ILLNESS: The patient presented to the Emergency Room with severe shortness of breath, cough. I believe his roommate has COVID-19. He states he has been feeling short of breath and exhausted for 4 days. He is running a low-grade fever. PAST MEDICAL HISTORY: Patient has been admitted for psychiatric issues which mainly her bipolar. MEDICAL PROBLEMS: Bipolar disorder, high cholesterol. SOCIAL HISTORY: Patient is . He lives with a roommate presently. Not employed. Disabled. CURRENT MEDICATIONS: Medications at home - Albuterol q 4 PRN, Bumex 1.5 mg HS, fenofibrate 1 tablet HS, Flovent 2 puffs HS, Zyprexa 5 mg 2 HS, Paxil 0.25 HS, Lyrica 50 bid, Flomax 0.4 q d, sometimes bid, Verapamil 180 q d, Coumadin 1 mg q d, Lomotil q 4 PRN. ALLERGIES: SULFA, CIPRO, DILTIAZEM, LEVOFLOXACIN, ZOLOFT, AMBIEN. PHYSICAL EXAMINATION: Patient is appropriately aged 66 y/o WM who is in mild to moderate discomfort with shortness of breath. VITAL SIGNS: GENERAL: HEENT: Pupils equal and reactive to light. NECK: Supple without adenopathy. CHEST: Few wheezes bilateral. CVS: No murmurs or gallops. ABDOMEN: Soft. No masses or organomegaly. Maybe increased bowel sounds. EXTREMITIES: No edema. No cyanosis. Range of movements normal. HOSPITAL COURSE: The patient treated with Remdesivir and Decadron. He was not anticoagulated as he is on Coumadin for a deep vein thrombosis in the past. He gradually improved. His O2 situation got to the point where he did not need any O2 more than what he has at home which normally he is on 2 liters for chronic obstructive pulmonary disease. He was discharged on some Keflex for frequency and pain with urination which he states is a flare-up of his chronic prostatitis. PROGNOSIS: [place] to be good. His pneumonitis has seemed to improve from the COVID-19 and he is back to his usual chronic obstructive pulmonary disease. He has had no trouble with his manic behavior at all during the hospitalization. Patient is to see his primary care doctor in 2 weeks and remain isolated for a week.
== END 2021-06-13 10:37 | disposition home or self-care (01) | DRG 177 ==
LOC: ED 13:29 → MED SURG 16:52
PROVIDERS: ADMIT Family Medicine; ATTEND Family Medicine
DX: U07.1 COVID-19 (principal); J12.82 Pneumonia due to coronavirus disease 2019; I10 Essential (primary) hypertension; R11.2 Nausea with vomiting, unspecified; J44.9 Chronic obstructive pulmonary disease, unspecified; Z86.718 Personal history of other venous thrombosis and embolism; Z79.01 Long term (current) use of anticoagulants; Z79.899 Other long term (current) drug therapy; R19.7 Diarrhea, unspecified; R51.9 Headache, unspecified; F31.9 Bipolar disorder, unspecified; Z20.822 Contact with and (suspected) exposure to COVID-19
CPT/HCPCS: 36000; 36415; 71045; 80053; 81001; 82728; 82947; 83605; 83615; 84134; 84484; 85025; 85027; 85379; 85610; 86308; 87040; 87651; 93005; 94640; 94760; 94762; 96374; 99285; 99291; J1100; U0003; A9270-GY

== ENCOUNTER 2021-10-15 23:07 | Emergency (ER) | payer MEDICAID ==
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
[2021-10-15 23:34] LABS: BASOPHIL % 0.3 % (0.0-0.4); Basophil (Absolute #) 0.02 (0-0.4); Eosinophil % 2.2 % (0.00-5.0); Eosinophil (Absolute #) 0.17 (0-0.5); Hematocrit 44.8 % (42-50); Hemoglobin 14.6 gm/dl (12.5-18.0); Lymphocyte (Absolute #) 1.59 (1.0-4.6); Lymphocytes % 20.7 % (24.0-44.0); Mean Cell Volume 92.4 fl (78-100); Mean Corpuscular Hemoglobin 30.1 pg (26-32); Mean Corpuscular Hgb Concent. 32.6 g/dl (32-36); Mean Platelet Volume 8.9 fl (7.5-11.0); Monocyte (Absolute #) 0.61 (0.0-1.3); Monocytes % 7.9 % (0.0-12.0); Neutrophil % 68.9 % (36.0-66.0); Platelet Count 260 K/mm3 (150-450); Red Blood Count 4.85 M/mm3 (4.1-5.6); Red Cell Distribution Width 14.8 % (11.5-14.0); White Blood Count 7.7 K/mm3 (4.0-10.5)
[2021-10-15 23:54] LABS: ACETAMINOPHEN < 10 ug/ml (10-30); ALBUMIN 4.1 g/dL (3.5-5.0); ALKALINE PHOSPHATASE 54 U/L (38-126); ANION GAP 11.2 MEQ/L (5-15); BLOOD UREA NITROGEN 13 mg/dL (9-20); CHLORIDE 105 mmol/L (98-107); Calcium 9.2 mg/dL (8.4-10.2); Carbon Dioxide 25 mmol/L (22-30); Creatinine 1 0.86 mg/dL (0.66-1.25); Direct Bilirubin 0.1 mg/dL (0.0-0.4); EST GLOMERULAR FILTRATION RATE > 60.0 ML/MIN; ETHYL ALCOHOL < 10 mg/dL (0-10); Glucose 117 mg/dL (74-106); Potassium 3.8 mmol/L (3.5-5.1); SALICYLATE < 1.0 mg/dL (2-20); SGOT/AST 22 U/L (17-59); SGPT/ALT 15 U/L (0-50); SODIUM 137 mmol/L (137-145); Total Protein 6.7 g/dL (6.3-8.2)
[2021-10-16 00:32] LABS: Amourphous Crystal FEW /HPF (NEGATIVE); Appearance SLIGHTLY CLOUDY (CLEAR); Bilirubin NEGATIVE (NEGATIVE); Blood NEGATIVE Ery/ul (0-5); Glucose NEGATIVE (NEGATIVE); Ketones NEGATIVE (NEGATIVE); Leukocyte Esterase MODERATE (NEGATIVE); Mucus SLIGHT /HPF (NEGATIVE); Nitrite NEGATIVE (NEGATIVE); Protein,Urine Dip NEGATIVE (Negative); RBC 0-2 /HPF (0-2); Specific Gravity 1.014 (1.005-1.025); Urobilinogen 2 mg/dL (0-1)
[2021-10-16 00:35] LABS: Amphetamine,Urine POSITIVE (NEGATIVE); Barbiturate,Urine NEGATIVE (NEGATIVE); Benzodiazepine,Urine NEGATIVE (NEGATIVE); Cocaine,Urine NEGATIVE (NEGATIVE); Methadone,Urine NEGATIVE (NEGATIVE); Opiate,Urine NEGATIVE (NEGATIVE); PCP,Urine NEGATIVE (NEGATIVE); THC,Urine POSITIVE (NEGATIVE)
[2021-10-16 06:04] VITALS: BP 118/72; PULSE 93; O2SAT 93
[2021-10-16 06:41] LABS: COVID AG -BINAX NOW RAPID TEST NEGATIVE (NEGATIVE)
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
== END 2021-10-16 08:17 | disposition short-term general hospital (02) ==
LOC: ED 23:07
DX: F31.11 Bipolar disorder, current episode manic without psychotic features, mild (principal); R45.851 Suicidal ideations; F15.10 Other stimulant abuse, uncomplicated; F12.10 Cannabis abuse, uncomplicated; Y32.XXXA Crashing of motor vehicle, undetermined intent, initial encounter; I10 Essential (primary) hypertension; Z79.01 Long term (current) use of anticoagulants; Z79.899 Other long term (current) drug therapy; Z72.0 Tobacco use
CPT/HCPCS: 36415; 71045; 80048; 80076; 80307; 81001; 84443; 85025; 87086; 90791; 93005; 99000; 99285; Q3014; G0480

== ENCOUNTER 2021-11-09 18:26 | Emergency (ER) | payer MEDICAID ==
--- NOTE | 2021-11-09 18:30 | ERPHSYRPT ---
- History of Present Illness Time Seen by Provider: 11/09/21 18:30 Source: patient Exam Limitations: clinical condition Physician History: This is a 66-year-old white male patient of Dr. Campbell who has a history of generalized neuropathy, alcohol abuse, drug abuse, DVT, myocardial infarction, coronary artery disease, COPD, DJD, bipolar disorder, anxiety. Patient is also on Coumadin. He was brought in by ambulance because his heat in his home is not functioning. Family/friends noticed that he was shaking and shivering when he was found at home and EMS was contacted. Patient was placed in an ambulance that was very warm and upon arrival to the emergency department his temperature was 98.3 F. He also had low oxygen upon arrival and does not typically wear oxygen therapy at home. He denies chest pain. He denies abdominal pain. He is a little short of breath he states. Timing/Duration: today Severity: moderate Modifying Factors: Improves With: nothing Associated Symptoms: malaise, weakness Allergies/Adverse Reactions: ciprofloxacin [From Cipro] Allergy (Intermediate, Verified 11/09/21 18:48) INFLAMES TENDONS ciprofloxacin HCl [From Cipro] Allergy (Intermediate, Verified 11/09/21 18:48) INFLAMES TENDONS diltiazem HCl [From Cardizem] Allergy (Intermediate, Verified 11/09/21 18:48) Hives EDEMA levofloxacin [From Levaquin] Allergy (Intermediate, Verified 11/09/21 18:48) INFLAMES TENDONS sertraline HCl [From Zoloft] Allergy (Intermediate, Verified 11/09/21 18:48) HIGH HEART RATE Sulfa (Sulfonamide Antibiotics) [Sulfa(Sulfonamide Antibiotics)] Allergy (Intermediate, Verified 11/09/21 18:48) Hives zolpidem tartrate [From Ambien] Adverse Reaction (Intermediate, Verified 11/09/21 18:48) "DROGGY ALL DAY LONG" Home Medications: Albuterol Sulfate [Proair Hfa] 8.5 gm IH BID PRN PRN 03/31/16 [History] Tamsulosin HCl [Flomax] 0.4 mg PO HS 03/31/16 [History] Verapamil HCl 180 mg PO HS 05/30/17 [History] Fenofibrate Nanocrystallized [Fenofibrate] 1 tab PO HS 05/25/20 [History] Warfarin Sodium [Coumadin] 1 tab PO DAILY 05/25/20 [History] Bumetanide 1 mg [Bumex 1 mg] 0.5 mg PO HS 06/09/21 [History] Fluticasone Propionate [Flovent Diskus] 50 mcg IH HS 06/09/21 [History] Olanzapine 5 mg [zyPREXA 5MG TABLET] 10 mg PO HS 06/09/21 [History] Pramipexole Di-HCl [Pramipexole ER] 0.25 mg PO HS 06/09/21 [History] Pregabalin 50 mg [Lyrica 50MG] 50 mg PO BID 06/09/21 [History] Hx Tetanus, Diphtheria Vaccination/Date Given: Yes Hx Influenza Vaccination/Date Given: No Hx Pneumococcal Vaccination/Date Given: No Travel Risk - Vaccine Status Have you recieved a Covid-19 vaccination: No 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: [employer] - Vaccination Dates Date of 2cond Vaccination (if applicable): unknown - Past Medical History Pertinent Past Medical History: Yes Neurological History: No Pertinent History ENT History: No Pertinent History Cardiac History: Deep Vein Thrombosis, Hypertension, Myocardial Infarction ([place]) Respiratory History: COPD, Emphysema, Pulmonary Embolism Endocrine Medical History: No Pertinent History Musculoskeletal History: Degenerative Disk Disease GI Medical History: No Pertinent History History: Bladder Cancer Psycho-Social History: Anxiety, Attention Deficit Disorder, Bipolar, Depression Male Reproductive Disorders: No Pertinent History - Past Surgical History Past Surgical History: Yes Neuro Surgical History: No Pertinent History Cardiac: No Pertinent History Respiratory: No Pertinent History Gastrointestinal: Hernia Repair Musculoskeletal: Joint Replacement Other Surgical History: 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 REPLACEMENT - Social History Smoking Status: Current every day smoker How long have you smoked: 0.5 Exposure to second hand smoke: Yes Drug Use: marijuana, methamphetamines, narcotics, cocaine Patient Lives Alone: Yes - Nursing Vital Signs Nursing Vital Signs: Initial Vital Signs Temperature 98.3 F 11/09/21 18:27 Pulse Rate 94 H 11/09/21 18:27 Respiratory Rate 26 H 11/09/21 18:27 Blood Pressure 127/91 11/09/21 18:27 O2 Sat by Pulse Oximetry 89 L 11/09/21 18:27 Pain Scale Pain Intensity 0 - Course Nursing assessment & vital signs reviewed: Yes Ordered Tests: Active Orders 24 hr Category Date Time Status Plastic Dolls Mold Filler STAT Care 11/09/21 18:54 Active EKG-ER Only STAT Care 11/09/21 18:54 Active IV Insertion STAT Care 11/09/21 18:54 Active Pulse Oximetry (ED) STAT Care 11/09/21 18:54 Active CHEST 1 VIEW (PORTABLE) Stat Exams 11/09/21 18:54 Taken ACETAMINOPHEN Stat Lab 11/09/21 18:40 Completed BLOOD CULTURE Stat Lab 11/09/21 19:20 Received CBC W DIFF Stat Lab 11/09/21 18:40 Completed CMP Stat Lab 11/09/21 18:40 Completed CULTURE,URINE Stat Lab 11/09/21 20:31 Received D-DIMER QUANTITATIVE Stat Lab 11/09/21 18:40 Completed ETHYL ALCOHOL Stat Lab 11/09/21 18:40 Completed INFLUENZA A+B TERRIE Stat Lab 11/09/21 18:40 Completed Lactic Acid Stat Lab 11/09/21 18:55 Completed [place] Screen Stat Lab 11/09/21 18:40 Completed NT PRO BNP Stat Lab 11/09/21 18:40 Completed POCT GLUCOSE Stat Lab 11/09/21 18:53 Completed PROTIME WITH INR Stat Lab 11/09/21 18:40 Completed SALICYLATE Stat Lab 11/09/21 18:40 Completed TROPONIN Q3H Lab 11/09/21 18:40 Completed TROPONIN Q3H Lab 11/09/21 22:00 Ordered TROPONIN Q3H Lab 11/10/21 01:00 Ordered TROPONIN Q3H Lab 11/10/21 04:00 Ordered TROPONIN Q3H Lab 11/10/21 07:00 Ordered UA W/RFX UR CULTURE Stat Lab 11/09/21 20:31 Completed Urine Triage Profile Stat Lab 11/09/21 20:31 Received Medication Summary Generic Name Dose Route Start Last Admin Trade Name Freq PRN Reason Stop Dose Admin Ceftriaxone Sodium/Dextrose 1 g in 50 mls @ 100 mls/hr 11/09/21 21:01 11/09/21 21:11 Rocephin 1 Gm-D5w 50 Ml Bag IV 11/09/21 21:30 100 mls/hr STAT STA 100 mls/hr Administration Discontinued Medications Generic Name Dose Route Start Last Admin Trade Name Freq PRN Reason Stop Dose Admin Sodium Chloride 1,000 mls @ 999 mls/hr 11/09/21 18:54 11/09/21 20:32 Sodium Chloride 0.9% 1000 Ml IV 11/09/21 19:54 Infused .Q1H1M STA Infusion Sodium Chloride Confirm 11/09/21 19:01 Sodium Chloride 0.9% 1000 Ml Administered 11/09/21 19:02 Dose 1,000 mls @ ud .ROUTE .STK-MED ONE Ceftriaxone Sodium/Dextrose Confirm 11/09/21 21:10 Rocephin 1 Gm-D5w 50 Ml Bag Administered 11/09/21 21:11 Dose 1 g in 50 mls @ ud IV .STK-MED ONE Lab/Rad Data: Laboratory Result Diagrams 11/09/21 18:40 11/09/21 18:40 Laboratory Results 11/09/21 11/09/21 11/09/21 Range/Units 20:31 18:55 18:53 WBC (4.0-10.5) K/mm3 RBC (4.1-5.6) M/mm3 Hgb (12.5-18.0) gm/dl Hct (42-50) % MCV (78-100) fl MCH (26-32) pg MCHC (32-36) g/dl RDW (11.5-14.0) % Plt Count (150-450) K/mm3 MPV (7.5-11.0) fl Gran % (36.0-66.0) % Eos # (Auto) (0-0.5) Absolute Lymphs (auto) (1.0-4.6) Absolute Monos (auto) (0.0-1.3) Lymphocytes % (24.0-44.0) % Monocytes % (0.0-12.0) % Eosinophils % (0.00-5.0) % Basophils % (0.0-0.4) % Absolute Granulocytes (1.4-6.9) Basophils # (0-0.4) PT (9.4-12.5) SECONDS INR (0.8-3.0) D-Dimer (215-500) ng/mL Sodium (137-145) mmol/L Potassium (3.5-5.1) mmol/L Chloride (98-107) mmol/L Carbon Dioxide (22-30) mmol/L Anion Gap (5-15) MEQ/L BUN (9-20) mg/dL Creatinine (0.66-1.25) mg/dL Estimated GFR ML/MIN Glucose (74-106) mg/dL POC Glucometer 121 H (74 to 106) mg/dL Lactic Acid 1.6 (0.4-2.0) Calcium (8.4-10.2) mg/dL Total Bilirubin (0.2-1.3) mg/dL AST (17-59) U/L ALT (0-50) U/L Alkaline Phosphatase (38-126) U/L Troponin I (0.000-0.034) ng/mL NT-Pro-B Natriuret Pep (0-900) pg/mL Serum Total Protein (6.3-8.2) g/dL Albumin (3.5-5.0) g/dL Urine Color YELLOW (YELLOW) Urine Appearance SLIGHTLY CLOUDY (CLEAR) Urine pH 6.0 (5-6) Ur Specific [place] 1.012 (1.005-1.025) Urine Protein NEGATIVE (Negative) Urine Ketones NEGATIVE (NEGATIVE) Urine Blood NEGATIVE (0-5) Quinn/ul Urine Nitrite NEGATIVE (NEGATIVE) Urine Bilirubin NEGATIVE (NEGATIVE) Urine Urobilinogen NEGATIVE (0-1) mg/dL Ur Leukocyte Esterase MODERATE (NEGATIVE) Urine WBC (Auto) 16-25 (0-5) /HPF Urine RBC (Auto) 3-5 (0-2) /HPF U Epithel Cells (Auto) NONE (FEW) /HPF Urine Bacteria (Auto) RARE (NEGATIVE) /HPF Urine Mucus (Auto) SLIGHT (NEGATIVE) /HPF Urine Culture Reflexed YES (NO) Urine Glucose NEGATIVE (NEGATIVE) mg/dL Salicylates (2-20) mg/dL Acetaminophen (10-30) ug/ml Ethyl Alcohol (0-10) mg/dL Monoscreen (Negative) Influenza Type A Ag (NEGATIVE) Influenza Type B Ag (NEGATIVE) 11/09/21 11/09/21 11/09/21 Range/Units 18:40 18:40 18:40 WBC (4.0-10.5) K/mm3 RBC (4.1-5.6) M/mm3 Hgb (12.5-18.0) gm/dl Hct (42-50) % MCV (78-100) fl MCH (26-32) pg MCHC (32-36) g/dl RDW (11.5-14.0) % Plt Count (150-450) K/mm3 MPV (7.5-11.0) fl Gran % (36.0-66.0) % Eos # (Auto) (0-0.5) Absolute Lymphs (auto) (1.0-4.6) Absolute Monos (auto) (0.0-1.3) Lymphocytes % (24.0-44.0) % Monocytes % (0.0-12.0) % Eosinophils % (0.00-5.0) % Basophils % (0.0-0.4) % Absolute Granulocytes (1.4-6.9) Basophils # (0-0.4) PT 13.9 H (9.4-12.5) SECONDS INR 1.18 (0.8-3.0) D-Dimer (215-500) ng/mL Sodium (137-145) mmol/L Potassium (3.5-5.1) mmol/L Chloride (98-107) mmol/L Carbon Dioxide (22-30) mmol/L Anion Gap (5-15) MEQ/L BUN (9-20) mg/dL Creatinine (0.66-1.25) mg/dL Estimated GFR ML/MIN Glucose (74-106) mg/dL POC Glucometer (74 to 106) mg/dL Lactic Acid (0.4-2.0) Calcium (8.4-10.2) mg/dL Total Bilirubin (0.2-1.3) mg/dL AST (17-59) U/L ALT (0-50) U/L Alkaline Phosphatase (38-126) U/L Troponin I (0.000-0.034) ng/mL NT-Pro-B Natriuret Pep (0-900) pg/mL Serum Total Protein (6.3-8.2) g/dL Albumin (3.5-5.0) g/dL Urine Color (YELLOW) Urine Appearance (CLEAR) Urine pH (5-6) Ur Specific [place] (1.005-1.025) Urine Protein (Negative) Urine Ketones (NEGATIVE) Urine Blood (0-5) Quinn/ul Urine Nitrite (NEGATIVE) Urine Bilirubin (NEGATIVE) Urine Urobilinogen (0-1) mg/dL Ur Leukocyte Esterase (NEGATIVE) Urine WBC (Auto) (0-5) /HPF Urine RBC (Auto) (0-2) /HPF U Epithel Cells (Auto) (FEW) /HPF Urine Bacteria (Auto) (NEGATIVE) /HPF Urine Mucus (Auto) (NEGATIVE) /HPF Urine Culture Reflexed (NO) Urine Glucose (NEGATIVE) mg/dL Salicylates < 1.0 L (2-20) mg/dL Acetaminophen < 10 L (10-30) ug/ml Ethyl Alcohol < 10 (0-10) mg/dL Monoscreen NEGATIVE (Negative) Influenza Type A Ag (NEGATIVE) Influenza Type B Ag (NEGATIVE) 11/09/21 11/09/21 11/09/21 Range/Units 18:40 18:40 18:40 WBC (4.0-10.5) K/mm3 RBC (4.1-5.6) M/mm3 Hgb (12.5-18.0) gm/dl Hct (42-50) % MCV (78-100) fl MCH (26-32) pg MCHC (32-36) g/dl RDW (11.5-14.0) % Plt Count (150-450) K/mm3 MPV (7.5-11.0) fl Gran % (36.0-66.0) % Eos # (Auto) (0-0.5) Absolute Lymphs (auto) (1.0-4.6) Absolute Monos (auto) (0.0-1.3) Lymphocytes % (24.0-44.0) % Monocytes % (0.0-12.0) % Eosinophils % (0.00-5.0) % Basophils % (0.0-0.4) % Absolute Granulocytes (1.4-6.9) Basophils # (0-0.4) PT (9.4-12.5) SECONDS INR (0.8-3.0) D-Dimer 444 (215-500) ng/mL Sodium (137-145) mmol/L Potassium (3.5-5.1) mmol/L Chloride (98-107) mmol/L Carbon Dioxide (22-30) mmol/L Anion Gap (5-15) MEQ/L BUN (9-20) mg/dL Creatinine (0.66-1.25) mg/dL Estimated GFR ML/MIN Glucose (74-106) mg/dL POC Glucometer (74 to 106) mg/dL Lactic Acid (0.4-2.0) Calcium (8.4-10.2) mg/dL Total Bilirubin (0.2-1.3) mg/dL AST (17-59) U/L ALT (0-50) U/L Alkaline Phosphatase (38-126) U/L Troponin I < 0.012 (0.000-0.034) ng/mL NT-Pro-B Natriuret Pep (0-900) pg/mL Serum Total Protein (6.3-8.2) g/dL Albumin (3.5-5.0) g/dL Urine Color (YELLOW) Urine Appearance (CLEAR) Urine pH (5-6) Ur Specific [place] (1.005-1.025) Urine Protein (Negative) Urine Ketones (NEGATIVE) Urine Blood (0-5) Quinn/ul Urine Nitrite (NEGATIVE) Urine Bilirubin (NEGATIVE) Urine Urobilinogen (0-1) mg/dL Ur Leukocyte Esterase (NEGATIVE) Urine WBC (Auto) (0-5) /HPF Urine RBC (Auto) (0-2) /HPF U Epithel Cells (Auto) (FEW) /HPF Urine Bacteria (Auto) (NEGATIVE) /HPF Urine Mucus (Auto) (NEGATIVE) /HPF Urine Culture Reflexed (NO) Urine Glucose (NEGATIVE) mg/dL Salicylates (2-20) mg/dL Acetaminophen (10-30) ug/ml Ethyl Alcohol (0-10) mg/dL Monoscreen (Negative) Influenza Type A Ag NEGATIVE (NEGATIVE) Influenza Type B Ag NEGATIVE (NEGATIVE) 11/09/21 11/09/21 Range/Units 18:40 18:40 WBC 7.4 (4.0-10.5) K/mm3 RBC 5.68 H (4.1-5.6) M/mm3 Hgb 17.1 (12.5-18.0) gm/dl Hct 52.1 H (42-50) % MCV 91.7 (78-100) fl MCH 30.1 (26-32) pg MCHC 32.8 (32-36) g/dl RDW 14.6 H (11.5-14.0) % Plt Count 298 (150-450) K/mm3 MPV 9.2 (7.5-11.0) fl Gran % 69.8 H (36.0-66.0) % Eos # (Auto) 0.07 (0-0.5) Absolute Lymphs (auto) 1.54 (1.0-4.6) Absolute Monos (auto) 0.62 (0.0-1.3) Lymphocytes % 20.8 L (24.0-44.0) % Monocytes % 8.4 (0.0-12.0) % Eosinophils % 0.9 (0.00-5.0) % Basophils % 0.1 (0.0-0.4) % Absolute Granulocytes 5.17 (1.4-6.9) Basophils # 0.01 (0-0.4) PT (9.4-12.5) SECONDS INR (0.8-3.0) D-Dimer (215-500) ng/mL Sodium 140 (137-145) mmol/L Potassium 4.4 (3.5-5.1) mmol/L Chloride 105 (98-107) mmol/L Carbon Dioxide 26 (22-30) mmol/L Anion Gap 14.3 (5-15) MEQ/L BUN 17 (9-20) mg/dL Creatinine 0.97 (0.66-1.25) mg/dL Estimated GFR > 60.0 ML/MIN Glucose 108 H (74-106) mg/dL POC Glucometer (74 to 106) mg/dL Lactic Acid (0.4-2.0) Calcium 9.8 (8.4-10.2) mg/dL Total Bilirubin 0.60 (0.2-1.3) mg/dL AST 21 (17-59) U/L ALT 18 (0-50) U/L Alkaline Phosphatase 51 (38-126) U/L Troponin I (0.000-0.034) ng/mL NT-Pro-B Natriuret Pep 36.4 (0-900) pg/mL Serum Total Protein 7.2 (6.3-8.2) g/dL Albumin 4.4 (3.5-5.0) g/dL Urine Color (YELLOW) Urine Appearance (CLEAR) Urine pH (5-6) Ur Specific [place] (1.005-1.025) Urine Protein (Negative) Urine Ketones (NEGATIVE) Urine Blood (0-5) Quinn/ul Urine Nitrite (NEGATIVE) Urine Bilirubin (NEGATIVE) Urine Urobilinogen (0-1) mg/dL Ur Leukocyte Esterase (NEGATIVE) Urine WBC (Auto) (0-5) /HPF Urine RBC (Auto) (0-2) /HPF U Epithel Cells (Auto) (FEW) /HPF Urine Bacteria (Auto) (NEGATIVE) /HPF Urine Mucus (Auto) (NEGATIVE) /HPF Urine Culture Reflexed (NO) Urine Glucose (NEGATIVE) mg/dL Salicylates (2-20) mg/dL Acetaminophen (10-30) ug/ml Ethyl Alcohol (0-10) mg/dL Monoscreen (Negative) Influenza Type A Ag (NEGATIVE) Influenza Type B Ag (NEGATIVE) - Progress Progress Note: 11/09/21 21:23 Medical decision making: This patient is awake alert and oriented. When I asked what his temperature was at home there was no answer as to what his actual body temperature was. There was report by EMS that the patient's heat was not working and the patient was shaking with chills. This patient has a significant urinary tract infection and that is what may have caused his shaking chills. His temperature on arrival was normal. We have taken the oxygen off of him and he is maintaining a room air oxygen level of 96%. Chest x-ray shows no acute cardiopulmonary process. This patient will be given cefdinir antibiotic which will cover urinary tract infection and any bronchitis or community-acquired pneumonia 11/09/21 21:29 Counseled pt/family regarding: lab results, diagnosis, need for follow-up - Departure Departure Disposition: Home Clinical Impression: Urinary tract infection Condition: Stable Critical Care Time: No Referrals: ALEXANDRIA CAMPBELL [Primary Care Provider] - Follow up/PCP as directed Additional Instructions: Drink plenty of fluids. Take your antibiotics as prescribed. Follow-up with your prescribing doctor for further management. Prescriptions: Cefdinir 300 mg PO BID #[id number]
[2021-11-09] MEDS ORDERED: Sodium Chloride 0.9% 1000 ML 1,000 ML IV STA (18:54)
[2021-11-09] MEDS ORDERED: Sodium Chloride 0.9% 1000 ML 1,000 ML ONE (19:01)
[2021-11-09 19:13] LABS: Absolute Neutrophil Ct (ANC) 5.17 (1.4-6.9); Basophil (Absolute #) 0.01 (0-0.4); Eosinophil % 0.9 % (0.00-5.0); Eosinophil (Absolute #) 0.07 (0-0.5); Hematocrit 52.1 % (42-50); Hemoglobin 17.1 gm/dl (12.5-18.0); Lymphocyte (Absolute #) 1.54 (1.0-4.6); Lymphocytes % 20.8 % (24.0-44.0); Mean Cell Volume 91.7 fl (78-100); Mean Corpuscular Hemoglobin 30.1 pg (26-32); Mean Corpuscular Hgb Concent. 32.8 g/dl (32-36); Mean Platelet Volume 9.2 fl (7.5-11.0); Monocyte (Absolute #) 0.62 (0.0-1.3); Monocytes % 8.4 % (0.0-12.0); Neutrophil % 69.8 % (36.0-66.0); Platelet Count 298 K/mm3 (150-450); Red Blood Count 5.68 M/mm3 (4.1-5.6); Red Cell Distribution Width 14.6 % (11.5-14.0); White Blood Count 7.4 K/mm3 (4.0-10.5)
[2021-11-09 19:27] LABS: INR 1.18 (0.8-3.0); PROTIME 13.9 SECONDS (9.4-12.5)
[2021-11-09 19:33] LABS: ALBUMIN 4.4 g/dL (3.5-5.0); ALKALINE PHOSPHATASE 51 U/L (38-126); ANION GAP 14.3 MEQ/L (5-15); BLOOD UREA NITROGEN 17 mg/dL (9-20); CHLORIDE 105 mmol/L (98-107); Calcium 9.8 mg/dL (8.4-10.2); Carbon Dioxide 26 mmol/L (22-30); Creatinine 1 0.97 mg/dL (0.66-1.25); EST GLOMERULAR FILTRATION RATE > 60.0 ML/MIN; Glucose 108 mg/dL (74-106); NT PRO BNP 36.4 pg/mL (0-900); Potassium 4.4 mmol/L (3.5-5.1); SGOT/AST 21 U/L (17-59); SGPT/ALT 18 U/L (0-50); SODIUM 140 mmol/L (137-145); Total Protein 7.2 g/dL (6.3-8.2)
[2021-11-09 19:44] LABS: ACETAMINOPHEN < 10 ug/ml (10-30); ETHYL ALCOHOL < 10 mg/dL (0-10); SALICYLATE < 1.0 mg/dL (2-20)
[2021-11-09 19:54] LABS: INFLUENZA A NEGATIVE (NEGATIVE); INFLUENZA B NEGATIVE (NEGATIVE)
[2021-11-09 20:55] LABS: Appearance SLIGHTLY CLOUDY (CLEAR); Bacteria RARE /HPF (NEGATIVE); Bilirubin NEGATIVE (NEGATIVE); Blood NEGATIVE Ery/ul (0-5); Glucose NEGATIVE (NEGATIVE); Ketones NEGATIVE (NEGATIVE); Leukocyte Esterase MODERATE (NEGATIVE); Mucus SLIGHT /HPF (NEGATIVE); Nitrite NEGATIVE (NEGATIVE); Protein,Urine Dip NEGATIVE (Negative); Specific Gravity 1.012 (1.005-1.025); Urobilinogen NEGATIVE mg/dL (0-1)
[2021-11-09] MEDS ORDERED: ROCEPHIN 1 Gm-D5w 50 ml Bag** 1 G/50 ML IVPB IV STA (21:01)
[2021-11-09] MEDS ORDERED: ROCEPHIN 1 Gm-D5w 50 ml Bag** 1 G/50 ML IVPB IV ONE (21:10)
[2021-11-09 22:08] VITALS: BP 99/57; PULSE 78; O2SAT 95
[2021-11-10 00:13] LABS: Amphetamine,Urine POSITIVE (NEGATIVE); Barbiturate,Urine NEGATIVE (NEGATIVE); Benzodiazepine,Urine NEGATIVE (NEGATIVE); Cocaine,Urine NEGATIVE (NEGATIVE); Methadone,Urine NEGATIVE (NEGATIVE); Opiate,Urine NEGATIVE (NEGATIVE); PCP,Urine NEGATIVE (NEGATIVE); THC,Urine POSITIVE (NEGATIVE)
--- NOTE | 2021-11-10 08:58 | XRAY ---
Indication: Hypoxia. Comparison: October 15, 2021. Portable chest again demonstrates prominent interstitial lung markings without focal infiltrate, consolidation, or large effusion. Stable tiny right lung calcified granulomas. Heart not enlarged. Bony thorax intact again with mild degenerative changes. Impression: Nonacute chest with chronic features.
== END 2021-11-09 22:15 | disposition home or self-care (01) ==
LOC: ED 18:26
DX: N39.0 Urinary tract infection, site not specified (principal); I10 Essential (primary) hypertension; J43.9 Emphysema, unspecified; Z72.0 Tobacco use; Z86.711 Personal history of pulmonary embolism; Z79.01 Long term (current) use of anticoagulants; I25.2 Old myocardial infarction; Z86.718 Personal history of other venous thrombosis and embolism; Z59.1 Inadequate housing; R06.02 Shortness of breath; Z79.899 Other long term (current) drug therapy
CPT/HCPCS: 36000; 36415; 71045; 80053; 80307; 81001; 82947; 83605; 83880; 84484; 85025; 85379; 85610; 86308; 87040; 87086; 87400; 93005; 93041; 94760; 96360; 99284; J0696; G0480

== ENCOUNTER 2022-06-09 02:26 | Emergency (ER) | payer MEDICAID ==
[2022-06-09 02:38] VITALS: O2SAT 95
[2022-06-09 03:08] LABS: Absolute Neutrophil Ct (ANC) 5.44 x10^3/uL (1.4-6.9); Basophil (Absolute #) 0.06 x10^3/uL (0-0.4); Eosinophil % 5.8 % (0.00-5.0); Hematocrit 43.3 % (42-50); Hemoglobin 14.1 g/dL (12.5-18.0); Lymphocyte (Absolute #) 1.72 x10^3/uL (1.0-4.6); Mean Cell Volume 92.1 fL (78-100); Mean Corpuscular Hgb Concent. 32.6 g/dL (32-36); Mean Platelet Volume 8.8 fL (7.5-11.0); Monocyte (Absolute #) 0.83 x10^3/uL (0.0-1.3); Monocytes % 9.7 % (0.0-12.0); Neutrophil % 63.3 % (36.0-66.0); Platelet Count 298 x10^3/uL (150-450); Red Cell Distribution Width 13.9 % (11.5-14.0); White Blood Count 8.6 x10^3/uL (4.0-10.5)
[2022-06-09 03:21] LABS: Appearance CLEAR (CLEAR); Bilirubin NEGATIVE (NEGATIVE); Glucose NEGATIVE (NEGATIVE)
[2022-06-09 03:22] LABS: Dipstick done @ ? MAIN LAB; Ketones NEGATIVE (NEGATIVE); Nitrite NEGATIVE (NEGATIVE); Protein,Urine Dip NEGATIVE (Negative); RBC NEGATIVE Ery/ul (0-5); Specific Gravity 1.015 (1.005-1.025); Urobilinogen 1 mg/dL (0-1)
[2022-06-09 03:22] LABS: ALKALINE PHOSPHATASE 52 U/L (38-126); ANION GAP 15.2 MEQ/L (5-15); BLOOD UREA NITROGEN 13 mg/dL (9-20); CHLORIDE 105 mmol/L (98-107); Calcium 9.4 mg/dL (8.4-10.2); Carbon Dioxide 21 mmol/L (22-30); Creatinine 1 0.75 mg/dL (0.66-1.25); EST GLOMERULAR FILTRATION RATE > 60.0 ML/MIN; Glucose 127 mg/dL (74-106); Potassium 4.2 mmol/L (3.5-5.1); SGOT/AST 17 U/L (17-59); SGPT/ALT 14 U/L (0-50); SODIUM 137 mmol/L (137-145); Total Protein 7.1 g/dL (6.3-8.2)
[2022-06-09 03:26] LABS: INR 1.02 (0.8-3.0); PROTIME 10.8 SECONDS (9.4-12.5); PTT 27.4 SECONDS (25.1-36.5)
--- NOTE | 2022-06-09 03:31 | ERPHSYRPT ---
- History of Present Illness Source: patient, EMS Exam Limitations: other (Very poor historian) Patient Subjective Stated Complaint: PT STATES HIS FEET AND R LEG HURT FOR 5 DAYS, STATES THAT HIS R LEG WAS SWOLLEN AND PAIN IS WORSE TODAY. Triage Nursing Assessment: PT ALERT AND ORIENTED, RATES PAININ FEET AT 10/10 Physician History: 67 yo wm who is a very poor historian presents per EMS w RLE pain x 5 days. Pt states that he has a h/o DVT/PE and is taking coumadin. He denies trauma and states that he has peripheral neuropathy. He denies chest pain but does state that he is mildly dyspneic. Cough/fever are denied along w PND/orthopnea. He d oes smoke 1ppd, along w marijuana usage. Method of Injury: unknown Occurred: other (5 days) Quality: constant, sharpness Severity of Pain-Max: severe Severity of Pain-Current: severe Lower Extremities Pain: leg: right, ankle: right Modifying Factors: Improves With: movement Associated Symptoms: unable to bear weight Allergies/Adverse Reactions: ciprofloxacin [From Cipro] Allergy (Intermediate, Verified 11/09/21 18:48) INFLAMES TENDONS ciprofloxacin HCl [From Cipro] Allergy (Intermediate, Verified 11/09/21 18:48) INFLAMES TENDONS diltiazem HCl [From Cardizem] Allergy (Intermediate, Verified 11/09/21 18:48) Hives EDEMA levofloxacin [From Levaquin] Allergy (Intermediate, Verified 11/09/21 18:48) INFLAMES TENDONS sertraline HCl [From Zoloft] Allergy (Intermediate, Verified 11/09/21 18:48) HIGH HEART RATE Sulfa (Sulfonamide Antibiotics) [Sulfa(Sulfonamide Antibiotics)] Allergy (Intermediate, Verified 11/09/21 18:48) Hives paroxetine [From Paxil] Allergy (Verified 06/09/22 02:39) zolpidem tartrate [From Ambien] Adverse Reaction (Intermediate, Verified 11/09/21 18:48) "DROGGY ALL DAY LONG" Home Medications: Albuterol Sulfate [Proair Hfa] 8.5 gm IH BID PRN PRN 03/31/16 [History] Tamsulosin HCl [Flomax] 0.4 mg PO HS 03/31/16 [History] Verapamil HCl 180 mg PO HS 05/30/17 [History] Fenofibrate Nanocrystallized [Fenofibrate] 1 tab PO HS 05/25/20 [History] Warfarin Sodium [Coumadin] 1 tab PO DAILY 05/25/20 [History] Bumetanide 1 mg [Bumex 1 mg] 0.5 mg PO HS 06/09/21 [History] Fluticasone Propionate [Flovent Diskus] 50 mcg IH HS 06/09/21 [History] Olanzapine 5 mg [zyPREXA 5MG TABLET] 10 mg PO HS 06/09/21 [History] Pramipexole Di-HCl [Pramipexole ER] 0.25 mg PO HS 06/09/21 [History] Pregabalin 50 mg [Lyrica 50MG] 50 mg PO BID 06/09/21 [History] Hx Tetanus, Diphtheria Vaccination/Date Given: Yes Hx Influenza Vaccination/Date Given: No Hx Pneumococcal Vaccination/Date Given: No Travel Risk - International Travel Have you traveled outside of the country in past 3 weeks: No - Coronavirus Screening Are you exhibiting any of the following symptoms?: No - Vaccine Status Have you recieved a Covid-19 vaccination: Yes Process Assistant: Unknown - Vaccination Dates Dates if Unknown: UNKNOWN - Review of Systems Constitutional: No Symptoms Eyes: No Symptoms Ears, Nose, & Throat: No Symptoms Respiratory: No Symptoms, Dyspnea Cardiac: No Symptoms Abdominal/Gastrointestinal: No Symptoms Genitourinary Symptoms: No Symptoms Musculoskeletal: No Symptoms, Arthralgias, Myalgias Skin: No Symptoms Neurological: No Symptoms Psychological: No Symptoms Endocrine: No Symptoms Hematologic/Lymphatic: No Symptoms Immunological/Allergic: No Symptoms - Past Medical History Pertinent Past Medical History: Yes Neurological History: No Pertinent History ENT History: No Pertinent History Cardiac History: Deep Vein Thrombosis, Hypertension, Myocardial Infarction (VT) Respiratory History: COPD, Emphysema, Pulmonary Embolism Endocrine Medical History: No Pertinent History Musculoskeletal History: Degenerative Disk Disease GI Medical History: No Pertinent History History: Bladder Cancer Psycho-Social History: Anxiety, Attention Deficit Disorder, Bipolar, Depression Male Reproductive Disorders: No Pertinent History - Past Surgical History Past Surgical History: Yes Neuro Surgical History: No Pertinent History Cardiac: No Pertinent History Respiratory: No Pertinent History Gastrointestinal: Hernia Repair Musculoskeletal: Joint Replacement Male Surgical History: Other Other Surgical History: 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 REPLA CEMENT - Social History Smoking Status: Current every day smoker How long have you smoked: 0.5 Exposure to second hand smoke: Yes Drug Use: marijuana, methamphetamines, narcotics, cocaine Patient Lives Alone: Yes Significant Family History: no pertinent family hx - Nursing Vital Signs Nursing Vital Signs: Initial Vital Signs Temperature 98.4 F 06/09/22 02:27 Pulse Rate 93 H 06/09/22 02:27 Respiratory Rate 18 06/09/22 02:27 O2 Sat by Pulse Oximetry 95 06/09/22 02:27 Pain Scale Pain Intensity 4 WNL - Physical Exam General Appearance: no apparent distress Eyes, Ears, Nose, Throat Exam: normal ENT inspection, TMs normal, pharynx normal Neck Exam: normal inspection, non-tender, supple, full range of motion, No B rudzinski, No Kernig's, No meningismus, No carotid bruit Cardiovascular/Respiratory Exam: chest non-tender, normal breath sounds, regular rate/rhythm, heart sounds normal, no respiratory distress, rhonchi (Scattered rhonchi B) Gastrointestinal/Abdominal Exam: non-tender, soft Back Exam: normal inspection, normal range of motion, No CVA tenderness, No vertebral tenderness Hips Exam: bilateral: non-tender, normal inspection, normal range of motion, no evidence of injury Legs Exam: right leg: swelling (Mild edema R posterior calf/distended veins/TTP/Good pedal pulse, distal sensation, and capillary return) Knees Exam: bilateral knee: non-tender, normal inspection, normal range of motion, no evidence of injury Ankle Exam: right ankle: swelling (Mild) Foot Exam: bilateral foot: non-tender, normal inspection, normal range of motion, no evidence of injury DTR - Lower Extremities Exam: knee (R): 2+, knee (L): 2+ Neuro/Tendon Exam: normal motor functions, normal tendon functions, responds to pain, no evidence tendon injury Mental Status Exam: alert, oriented x 3, cooperative Skin Exam: normal color, warm, dry, No rash SpO2 Interpretation: normal SpO2: 95 O2 Delivery: Room Air - Course Nursing assessment & vital signs reviewed: Yes - Radiology Ultrasound Exam Venous Lower Extremity Ultrasound: Other (RLE extensive DVT) Ordered Tests: Active Orders 24 hr Category Date Time Status VENOUS UNILAT/LIMITED EXTREMIT [US] Stat Exams 06/09/22 02:57 Taken CBC W DIFF Stat Lab 06/09/22 03:04 Completed CMP Stat Lab 06/09/22 03:04 Completed NT PRO BNP Stat Lab 06/09/22 03:04 Completed PROTIME WITH INR Stat Lab 06/09/22 03:04 Completed PTT Stat Lab 06/09/22 03:04 Completed TROPONIN Q4H Lab 06/09/22 03:04 Completed UA W/RFX CULTURE Stat Lab 06/09/22 03:09 Completed Urine Triage Profile Stat Lab 06/09/22 03:09 Completed Medication Summary Discontinued Medications Generic Name Dose Route Start Last Admin Trade Name Freq PRN Reason Stop Dose Admin Apixaban 10 mg 06/09/22 03:53 06/09/22 03:59 Apixaban 2.5 Mg Tablet PO 06/09/22 03:54 10 mg STAT ONE Administration Ketorolac Tromethamine 15 mg 06/09/22 03:53 06/09/22 04:00 Ketorolac Tromethamine 30 Mg/Ml Inj IV 06/09/22 03:54 15 mg STAT ONE Administration Ketorolac Tromethamine Confirm 06/09/22 03:53 Ketorolac Tromethamine 30 Mg/Ml Inj Administered 06/09/22 03:54 Dose 30 mg .ROUTE .STK-MED ONE Lab/Rad Data: Laboratory Result Diagrams 06/09/22 03:04 06/09/22 03:04 Laboratory Results 06/09/22 06/09/22 06/09/22 Range/Units 03:09 03:09 03:04 WBC (4.0-10.5) x10^3/uL RBC (4.1-5.6) x10^6/uL Hgb (12.5-18.0) g/dL Hct (42-50) % MCV (78-100) fL MCH (26-32) pg MCHC (32-36) g/dL RDW (11.5-14.0) % Plt Count (150-450) x10^3/uL MPV (7.5-11.0) fL Gran % (36.0-66.0) % Immature Gran % (Auto) (0.00-0.4) % Nucleat RBC Rel Count (0.00-0.1) % Eos # (Auto) (0-0.5) x10^3/uL Immature Gran # (Auto) (0.00-0.03) x10^3u/L Absolute Lymphs (auto) (1.0-4.6) x10^3/uL Absolute Monos (auto) (0.0-1.3) x10^3/uL Absolute Nucleated RBC (0.00-0.01) x10^3u/L Lymphocytes % (24.0-44.0) % Monocytes % (0.0-12.0) % Eosinophils % (0.00-5.0) % Basophils % (0.0-0.4) % Absolute Granulocytes (1.4-6.9) x10^3/uL Basophils # (0-0.4) x10^3/uL PT (9.4-12.5) SECONDS INR (0.8-3.0) APTT (25.1-36.5) SECONDS Sodium (137-145) mmol/L Potassium (3.5-5.1) mmol/L Chloride (98-107) mmol/L Carbon Dioxide (22-30) mmol/L Anion Gap (5-15) MEQ/L BUN (9-20) mg/dL Creatinine (0.66-1.25) mg/dL Estimated GFR ML/MIN Glucose (74-106) mg/dL Calcium (8.4-10.2) mg/dL Total Bilirubin (0.2-1.3) mg/dL AST (17-59) U/L ALT (0-50) U/L Alkaline Phosphatase (38-126) U/L Troponin I < 0.012 (0.000-0.034) ng/mL NT-Pro-B Natriuret Pep (0-900) pg/mL Serum Total Protein (6.3-8.2) g/dL Albumin (3.5-5.0) g/dL Urinalys Dipstick Clnc MAIN LAB Urine Color YELLOW (YELLOW) Urine Appearance CLEAR (CLEAR) Urine pH 7.0 (5-6) Ur Specific [place] 1.015 (1.005-1.025) POC Urine Protein Conf NEGATIVE (Negative) Urine Ketones NEGATIVE (NEGATIVE) Urine Nitrite NEGATIVE (NEGATIVE) Urine Bilirubin NEGATIVE (NEGATIVE) Urine Urobilinogen 1 (0-1) mg/dL Urine Leukocytes SMALL (NEGATIVE) Urine WBC (Auto) 6-10 (0-5) /HPF Urine RBC (Auto) 0-2 (0-2) /HPF U Epithel Cells (Auto) RARE (FEW) /HPF Urine Bacteria (Auto) NONE SEEN (NEGATIVE) /HPF Urine RBC NEGATIVE (0-5) Quinn/ul Urine Mucus (Auto) SLIGHT (NEGATIVE) /HPF Ur Culture Indicated? NO Urine Glucose NEGATIVE (NEGATIVE) mg/dL Urine Opiates Level NEGATIVE (NEGATIVE) Ur Methadone NEGATIVE (NEGATIVE) Urine Barbiturates NEGATIVE (NEGATIVE) Ur Phencyclidine (PCP) NEGATIVE (NEGATIVE) Urine Amphetamine NEGATIVE (NEGATIVE) U Benzodiazepine Level NEGATIVE (NEGATIVE) Urine Cocaine NEGATIVE (NEGATIVE) Urine Marijuana (THC) NEGATIVE (NEGATIVE) 06/09/22 06/09/22 06/09/22 Range/Units 03:04 03:04 03:04 WBC 8.6 (4.0-10.5) x10^3/uL RBC 4.70 (4.1-5.6) x10^6/uL Hgb 14.1 (12.5-18.0) g/dL Hct 43.3 (42-50) % MCV 92.1 (78-100) fL MCH 30.0 (26-32) pg MCHC 32.6 (32-36) g/dL RDW 13.9 (11.5-14.0) % Plt Count 298 (150-450) x10^3/uL MPV 8.8 (7.5-11.0) fL Gran % 63.3 (36.0-66.0) % Immature Gran % (Auto) 0.5 H (0.00-0.4) % Nucleat RBC Rel Count 0.0 (0.00-0.1) % Eos # (Auto) 0.50 (0-0.5) x10^3/uL Immature Gran # (Auto) 0.04 H (0.00-0.03) x10^3u/L Absolute Lymphs (auto) 1.72 (1.0-4.6) x10^3/uL Absolute Monos (auto) 0.83 (0.0-1.3) x10^3/uL Absolute Nucleated RBC 0.00 (0.00-0.01) x10^3u/L Lymphocytes % 20.0 L (24.0-44.0) % Monocytes % 9.7 (0.0-12.0) % Eosinophils % 5.8 H (0.00-5.0) % Basophils % 0.7 (0.0-0.4) % Absolute Granulocytes 5.44 (1.4-6.9) x10^3/uL Basophils # 0.06 (0-0.4) x10^3/uL PT 10.8 (9.4-12.5) SECONDS INR 1.02 (0.8-3.0) APTT 27.4 (25.1-36.5) SECONDS Sodium 137 (137-145) mmol/L Potassium 4.2 (3.5-5.1) mmol/L Chloride 105 (98-107) mmol/L Carbon Dioxide 21 L (22-30) mmol/L Anion Gap 15.2 H (5-15) MEQ/L BUN 13 (9-20) mg/dL Creatinine 0.75 (0.66-1.25) mg/dL Estimated GFR > 60.0 ML/MIN Glucose 127 H (74-106) mg/dL Calcium 9.4 (8.4-10.2) mg/dL Total Bilirubin 0.30 (0.2-1.3) mg/dL AST 17 (17-59) U/L ALT 14 (0-50) U/L Alkaline Phosphatase 52 (38-126) U/L Troponin I (0.000-0.034) ng/mL NT-Pro-B Natriuret Pep 76.0 (0-900) pg/mL Serum Total Protein 7.1 (6.3-8.2) g/dL Albumin 4.0 (3.5-5.0) g/dL Urinalys Dipstick Clnc Urine Color (YELLOW) Urine Appearance (CLEAR) Urine pH (5-6) Ur Specific [place] (1.005-1.025) POC Urine Protein Conf (Negative) Urine Ketones (NEGATIVE) Urine Nitrite (NEGATIVE) Urine Bilirubin (NEGATIVE) Urine Urobilinogen (0-1) mg/dL Urine Leukocytes (NEGATIVE) Urine WBC (Auto) (0-5) /HPF Urine RBC (Auto) (0-2) /HPF U Epithel Cells (Auto) (FEW) /HPF Urine Bacteria (Auto) (NEGATIVE) /HPF Urine RBC (0-5) Quinn/ul Urine Mucus (Auto) (NEGATIVE) /HPF Ur Culture Indicated? Urine Glucose (NEGATIVE) mg/dL Urine Opiates Level (NEGATIVE) Ur Methadone (NEGATIVE) Urine Barbiturates (NEGATIVE) Ur Phencyclidine (PCP) (NEGATIVE) Urine Amphetamine (NEGATIVE) U Benzodiazepine Level (NEGATIVE) Urine Cocaine (NEGATIVE) Urine Marijuana (THC) (NEGATIVE) - Progress Progress: improved Progress Note: 06/09/22 03:55 15mg IV Toradol 10mg po Eliquis Pt states that he has been taking his Coumadin, but his INR is normal. Counseled pt/family regarding: diagnosis, need for follow-up, rad results - Departure Departure Disposition: Home Clinical Impression: DVT (deep venous thrombosis) Condition: Stable Critical Care Time: No Referrals: ALEXANDRIA CAMPBELL [Primary Care Provider] - Follow up/PCP as directed Instructions: Deep Vein Thrombosis (Blood Clots in the Legs) (DC) Additional Instructions: Stop Coumadin Continue with Eliquis(Prescription sent to pharmacy) Follow up with Dr. Campbell Return to ER for increasing pain or shortness of breath Prescriptions: Apixaban [Eliquis] 5 mg PO BID #1 packet
[2022-06-09 03:33] LABS: Amphetamine,Urine NEGATIVE (NEGATIVE); Barbiturate,Urine NEGATIVE (NEGATIVE); Benzodiazepine,Urine NEGATIVE (NEGATIVE); Cocaine,Urine NEGATIVE (NEGATIVE); Methadone,Urine NEGATIVE (NEGATIVE); Opiate,Urine NEGATIVE (NEGATIVE); PCP,Urine NEGATIVE (NEGATIVE); THC,Urine NEGATIVE (NEGATIVE)
[2022-06-09 03:37] LABS: Epithelial Cells RARE /HPF (FEW); Mucus SLIGHT /HPF (NEGATIVE); RBC 0-2 /HPF (0-2)
[2022-06-09 03:40] LABS: Bacteria NONE SEEN /HPF (NEGATIVE); Urine Cultured Indicated? NO
[2022-06-09] MEDS ORDERED: TORAdol 30 mg Injection ONE (03:53)
[2022-06-09] MEDS ORDERED: ELIQUIS 2.5 MG TABLET PO ONE (03:53)
[2022-06-09] MEDS ORDERED: TORAdol 30 mg Injection IV ONE (03:53)
[2022-06-09 04:03] VITALS: BP 110/71; PULSE 81
--- NOTE | 2022-06-09 06:53 | XRAY ---
Indication: Right leg pain and swelling. Two-dimensional sonogram and color Doppler imaging of the major venous vessels of the right leg performed. Comparison: May 25, 2020 New occluding and nonoccluding deep venous thrombi throughout the visualized common femoral, femoral, and popliteal veins. No thrombus seen in the remaining posterior tibial and greater saphenous veins. Impression: New right leg DVT as detailed. Comment: Preliminary report was given.
== END 2022-06-09 04:14 | disposition home or self-care (01) ==
LOC: ED 02:26
DX: I82.401 Acute embolism and thrombosis of unspecified deep veins of right lower extremity (principal); M79.604 Pain in right leg; I10 Essential (primary) hypertension; J44.9 Chronic obstructive pulmonary disease, unspecified; Z72.0 Tobacco use; Z86.718 Personal history of other venous thrombosis and embolism; Z79.01 Long term (current) use of anticoagulants; Z79.899 Other long term (current) drug therapy
CPT/HCPCS: 36000; 36415; 80053; 80307; 81015; 83880; 84484; 85025; 85610; 85730; 93971; 96374; 99284; J1885; A9270-GY

== ENCOUNTER 2022-12-08 19:40 | Observation (INO) | payer MEDICAID ==
[2022-12-08 20:03] LABS: Absolute Neutrophil Ct (ANC) 3.06 x10^3/uL (1.4-6.9); BASOPHIL % 0.8 % (0.0-0.4); Basophil (Absolute #) 0.04 x10^3/uL (0-0.4); Eosinophil % 0.8 % (0.00-5.0); Eosinophil (Absolute #) 0.04 x10^3/uL (0-0.5); Hematocrit 51.5 % (42-50); Hemoglobin 16.1 g/dL (12.5-18.0); IMMATURE GRAN # 0.01 x10^3u/L (0.00-0.03); IMMATURE GRAN % 0.2 % (0.00-0.4); Lymphocyte (Absolute #) 1.54 x10^3/uL (1.0-4.6); Lymphocytes % 30.5 % (24.0-44.0); Mean Cell Volume 95.9 fL (78-100); Mean Corpuscular Hgb Concent. 31.3 g/dL (32-36); Mean Platelet Volume 9.1 fL (7.5-11.0); Monocyte (Absolute #) 0.36 x10^3/uL (0.0-1.3); Monocytes % 7.1 % (0.0-12.0); Neutrophil % 60.6 % (36.0-66.0); Platelet Count 223 x10^3/uL (150-450); Red Blood Count 5.37 x10^6/uL (4.1-5.6); Red Cell Distribution Width 13.6 % (11.5-14.0); White Blood Count 5.1 x10^3/uL (4.0-10.5)
[2022-12-08 20:18] LABS: ACETAMINOPHEN < 10 ug/ml (10-30); ALBUMIN 4.2 g/dL (3.5-5.0); ALKALINE PHOSPHATASE 61 U/L (38-126); ANION GAP 12.2 MEQ/L (5-15); BLOOD UREA NITROGEN 9 mg/dL (9-20); CHLORIDE 106 mmol/L (98-107); Calcium 9.1 mg/dL (8.4-10.2); Carbon Dioxide 24 mmol/L (22-30); Creatinine 1 0.71 mg/dL (0.66-1.25); EST GLOMERULAR FILTRATION RATE > 60.0 ML/MIN; ETHYL ALCOHOL < 10 mg/dL (0-10); Glucose 110 mg/dL (74-106); Potassium 4.2 mmol/L (3.5-5.1); SALICYLATE < 1.0 mg/dL (2-20); SGOT/AST 20 U/L (17-59); SGPT/ALT 21 U/L (0-50); SODIUM 139 mmol/L (137-145); Total Protein 6.8 g/dL (6.3-8.2)
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
[2022-12-08] MEDS ORDERED: ZOFRAN ODT 4 MG PO ONE (20:38)
[2022-12-08 20:40] LABS: Amphetamine,Urine NEGATIVE (NEGATIVE); Barbiturate,Urine NEGATIVE (NEGATIVE); Benzodiazepine,Urine NEGATIVE (NEGATIVE); Cocaine,Urine NEGATIVE (NEGATIVE); Methadone,Urine NEGATIVE (NEGATIVE); Opiate,Urine NEGATIVE (NEGATIVE); PCP,Urine NEGATIVE (NEGATIVE); THC,Urine NEGATIVE (NEGATIVE)
[2022-12-08] MEDS ORDERED: ZOFRAN ODT 4 MG ONE ×2 (20:42→20:47)
[2022-12-08] MEDS ORDERED: Zofran 4 MG/2 ML VIAL IV PRN (20:51)
[2022-12-08] MEDS: Sodium Chloride 0.9% 1000 ML 1,000 ML IV SCH (21:20)
[2022-12-08 21:22] LABS: INFLUENZA A NEGATIVE (NEGATIVE); INFLUENZA B NEGATIVE (NEGATIVE); RESPIRATORY SYNCTIAL VIRUS NEGATIVE (Negative); SARS-CoV-2 Xpert Express NEGATIVE (NEGATIVE)
[2022-12-09 05:51] LABS: ALBUMIN 3.3 g/dL (3.5-5.0); ALKALINE PHOSPHATASE 47 U/L (38-126); BLOOD UREA NITROGEN 14 mg/dL (9-20); CHLORIDE 108 mmol/L (98-107); Calcium 8.3 mg/dL (8.4-10.2); Carbon Dioxide 23 mmol/L (22-30); EST GLOMERULAR FILTRATION RATE > 60.0 ML/MIN; Glucose 107 mg/dL (74-106); SGOT/AST 24 U/L (17-59); SGPT/ALT 18 U/L (0-50); SODIUM 135 mmol/L (137-145); Total Protein 5.8 g/dL (6.3-8.2)
[2022-12-09 05:52] LABS: Potassium 3.9 mmol/L (3.5-5.1)
[2022-12-09 06:02] LABS: ANION GAP 7.9 MEQ/L (5-15)
[2022-12-09] MEDS: Sodium Chloride 0.9% 1000 ML 1,000 ML IV SCH (07:30)
--- NOTE | 2022-12-09 15:28 | PCM.HP ---
History of Present Illness - Chief Complaint Chief Complaint: suicidal attempt, Calcium channel yordan overdose History of Present Illness: is a 67 year old male patient who was admitted from ER to ICU bed after suicide attempt , overdose on Calcium channel yordan. [facility] Telehealth Evaluation (see visit notes)and will admit patient when he is medically stable. Patient is still hypotensive 80s/50s sleeping but awakens easily and is oriented. He has a great appetite . Lives without electricity and running water . PMHx includes HTN, Peripheral neuropathy,Bipolar II disorder,Hx suicidal ideation with Hospitalizations,last was 10/16/21 at [facility] for suicidal ideatio n per [facility] evaluation.. Medications & Allergies Home Medications: Home Medication List Tamsulosin HCl [Flomax] 0.4 mg PO HS 03/31/16 [History Confirmed 12/09/22] Verapamil HCl 180 mg PO HS 05/30/17 [History Confirmed 12/09/22] Olanzapine 5 mg [zyPREXA 5MG TABLET] 10 mg PO HS 06/09/21 [History Confirmed 12/09/22] Pramipexole Di-HCl [Pramipexole ER] 0.75 mg PO HS 06/09/21 [History Confirmed 12/09/22] Apixaban [Eliquis] 5 mg PO BID #1 packet 06/09/22 [Rx Confirmed 12/09/22] Gabapentin 600 mg PO TID 12/09/22 [History Confirmed 12/09/22] Prazosin HCl 1 mg PO HS 12/09/22 [History Confirmed 12/09/22] Allergies/Adverse Reactions: Allergies Allergy/AdvReac Type Severity Reaction Status Date / Time ciprofloxacin [From Cipro] Allergy Intermediate Verified 12/08/22 20:27 ciprofloxacin HCl Allergy Intermediate Verified 12/08/22 20:27 [From Cipro] diltiazem HCl [From Cardizem] Allergy Intermediate Hives Verified 12/08/22 20:27 levofloxacin [From Levaquin] Allergy Intermediate Verified 12/08/22 20:27 sertraline HCl [From Zoloft] Allergy Intermediate Verified 12/08/22 20:27 Sulfa (Sulfonamide Allergy Intermediate Hives Verified 12/08/22 20:27 Antibiotics) [Sulfa(Sulfonamide Antibiotics)] paroxetine [From Paxil] Allergy Verified 12/08/22 20:27 zolpidem tartrate AdvReac Intermediate Verified 12/08/22 20:27 [From Ambien] - Past Medical History Past Medical History: Yes Neurological History: No Pertinent History ENT History: No Pertinent History Cardiac History: Deep Vein Thrombosis, Hypertension, Myocardial Infarction ([place]) Respiratory History: COPD, Emphysema, Pulmonary Embolism Endocrine Medical History: No Pertinent History Musculoskelatal History: Degenerative Disk Disease GI Medical History: No Pertinent History History: Bladder Cancer Pyscho-Social History: Anxiety, Attention Deficit Disorder, Bipolar, Depression Male Reproductive Disorders: No Pertinent History - Past Surgical History Past Surgical History: Yes Neuro Surgical History: No Pertinent History Cardiac History: No Pertinent History Respiratory Surgery: No Pertinent History GI Surgical History: Hernia Repair Musculskeletal Surgical Hx: Joint Replacement Male Surgical History: Other Other Surgical History: 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 REPLACEMENT - Social History Smoking Status: Current every day smoker How long have you smoked: 30 years Exposure to second hand smoke: Yes Alcohol: None Drug Use: marijuana, methamphetamines Significant Family History: no pertinent family hx - Physical Exam Vital Signs: Vital Signs - 24 hr Temp Pulse Resp BP Pulse Ox 12/09/22 12:56 96.9 F 61 19 105/60 90 L 12/09/22 11:45 64 12/09/22 08:41 97.7 F 70 19 108/57 98 12/09/22 07:42 98 12/09/22 07:33 56 L 12/09/22 05:36 97 F 57 L 18 94/51 97 12/09/22 04:04 97.0 F 61 20 101/53 97 12/09/22 03:03 69 12/09/22 02:29 65 16 85/50 95 12/09/22 00:56 65 16 96/53 97 12/08/22 23:51 69 85/56 94 L 12/08/22 23:48 96 12/08/22 22:43 98.3 F 71 16 97/52 95 12/08/22 22:00 65 16 80/50 95 12/08/22 21:00 61 18 115/82 94 L 12/08/22 20:51 91 L 12/08/22 20:00 73 18 112/62 91 L 12/08/22 19:43 98.3 F 71 18 97/81 94 L Results - Labs Lab/Micro Results: Lab Results-Last 24 Hours 12/08/22 12/08/22 12/08/22 Range/Units 20:01 20:01 20:19 WBC 5.1 (4.0-10.5) x10^3/uL RBC 5.37 (4.1-5.6) x10^6/uL Hgb 16.1 (12.5-18.0) g/dL Hct 51.5 H (42-50) % MCV 95.9 (78-100) fL MCH 30.0 (26-32) pg MCHC 31.3 L (32-36) g/dL RDW 13.6 (11.5-14.0) % Plt Count 223 (150-450) x10^3/uL MPV 9.1 (7.5-11.0) fL Gran % 60.6 (36.0-66.0) % Immature Gran % (Auto) 0.2 (0.00-0.4) % Nucleat RBC Rel Count 0.0 (0.00-0.1) % Eos # (Auto) 0.04 (0-0.5) x10^3/uL Immature Gran # (Auto) 0.01 (0.00-0.03) x10^3u/L Absolute Lymphs (auto) 1.54 (1.0-4.6) x10^3/uL Absolute Monos (auto) 0.36 (0.0-1.3) x10^3/uL Absolute Nucleated RBC 0.00 (0.00-0.01) x10^3u/L Lymphocytes % 30.5 (24.0-44.0) % Monocytes % 7.1 (0.0-12.0) % Eosinophils % 0.8 (0.00-5.0) % Basophils % 0.8 (0.0-0.4) % Absolute Granulocytes 3.06 (1.4-6.9) x10^3/uL Basophils # 0.04 (0-0.4) x10^3/uL Sodium 139 (137-145) mmol/L Potassium 4.2 (3.5-5.1) mmol/L Chloride 106 (98-107) mmol/L Carbon Dioxide 24 (22-30) mmol/L Anion Gap 12.2 (5-15) MEQ/L BUN 9 (9-20) mg/dL Creatinine 0.71 (0.66-1.25) mg/dL Estimated GFR > 60.0 ML/MIN Glucose 110 H (74-106) mg/dL Calcium 9.1 (8.4-10.2) mg/dL Total Bilirubin 0.40 (0.2-1.3) mg/dL AST 20 (17-59) U/L ALT 21 (0-50) U/L Alkaline Phosphatase 61 (38-126) U/L Serum Total Protein 6.8 (6.3-8.2) g/dL Albumin 4.2 (3.5-5.0) g/dL Salicylates < 1.0 L (2-20) mg/dL Urine Opiates Level NEGATIVE (NEGATIVE) Ur Methadone NEGATIVE (NEGATIVE) Acetaminophen < 10 L (10-30) ug/ml Urine Barbiturates NEGATIVE (NEGATIVE) Ur Phencyclidine (PCP) NEGATIVE (NEGATIVE) Urine Amphetamine NEGATIVE (NEGATIVE) U Benzodiazepine Level NEGATIVE (NEGATIVE) Urine Cocaine NEGATIVE (NEGATIVE) Urine Marijuana (THC) NEGATIVE (NEGATIVE) Ethyl Alcohol < 10 (0-10) mg/dL Influenza Type A Ag (NEGATIVE) Influenza Type B Ag (NEGATIVE) RSV (PCR) (Negative) SARS-CoV-2 (PCR) (NEGATIVE) 12/08/22 12/09/22 Range/Units 20:44 05:32 WBC (4.0-10.5) x10^3/uL RBC (4.1-5.6) x10^6/uL Hgb (12.5-18.0) g/dL Hct (42-50) % MCV (78-100) fL MCH (26-32) pg MCHC (32-36) g/dL RDW (11.5-14.0) % Plt Count (150-450) x10^3/uL MPV (7.5-11.0) fL Gran % (36.0-66.0) % Immature Gran % (Auto) (0.00-0.4) % Nucleat RBC Rel Count (0.00-0.1) % Eos # (Auto) (0-0.5) x10^3/uL Immature Gran # (Auto) (0.00-0.03) x10^3u/L Absolute Lymphs (auto) (1.0-4.6) x10^3/uL Absolute Monos (auto) (0.0-1.3) x10^3/uL Absolute Nucleated RBC (0.00-0.01) x10^3u/L Lymphocytes % (24.0-44.0) % Monocytes % (0.0-12.0) % Eosinophils % (0.00-5.0) % Basophils % (0.0-0.4) % Absolute Granulocytes (1.4-6.9) x10^3/uL Basophils # (0-0.4) x10^3/uL Sodium 135 L (137-145) mmol/L Potassium 3.9 (3.5-5.1) mmol/L Chloride 108 H (98-107) mmol/L Carbon Dioxide 23 (22-30) mmol/L Anion Gap 7.9 (5-15) MEQ/L BUN 14 (9-20) mg/dL Creatinine 0.70 (0.66-1.25) mg/dL Estimated GFR > 60.0 ML/MIN Glucose 107 H (74-106) mg/dL Calcium 8.3 L (8.4-10.2) mg/dL Total Bilirubin 0.30 (0.2-1.3) mg/dL AST 24 (17-59) U/L ALT 18 (0-50) U/L Alkaline Phosphatase 47 (38-126) U/L Serum Total Protein 5.8 L (6.3-8.2) g/dL Albumin 3.3 L (3.5-5.0) g/dL Salicylates (2-20) mg/dL Urine Opiates Level (NEGATIVE) Ur Methadone (NEGATIVE) Acetaminophen (10-30) ug/ml Urine Barbiturates (NEGATIVE) Ur Phencyclidine (PCP) (NEGATIVE) Urine Amphetamine (NEGATIVE) U Benzodiazepine Level (NEGATIVE) Urine Cocaine (NEGATIVE) Urine Marijuana (THC) (NEGATIVE) Ethyl Alcohol (0-10) mg/dL Influenza Type A Ag NEGATIVE (NEGATIVE) Influenza Type B Ag NEGATIVE (NEGATIVE) RSV (PCR) NEGATIVE (Negative) SARS-CoV-2 (PCR) NEGATIVE (NEGATIVE) - Radiology Impressions Radiology Exams & Impressions: Radiology Procedures Category Date Time Status Portable Chest [CHEST 1 VIEW (PORTABLE)] Routine Exams 12/09/22 15:11 Ordered - Other Procedures and Tests Respiratory Therapy 12/08/22 23:40 Oxygen Nasal Cannula 2 lpm
[2022-12-09] MEDS: NEURONTIN PO SCH ×2 (15:54→21:09)
--- NOTE | 2022-12-09 19:16 | XRAY ---
Indication: Wheezing. COPD. Comparison: November 09, 2021 Portable apical lordotic chest again demonstrates chronic lung markings without focal infiltrate, consolidation, or large effusion. Heart not enlarged. Bony thorax intact again with osteopenia mild degenerative changes. Impression: Continued nonacute chest with chronic features. Comment: Preliminary interpretation made by C. No critical discrepancy.
[2022-12-09] MEDS ORDERED: NEURONTIN PO ONE (22:00)
[2022-12-09] MEDS ORDERED: ELIQUIS 2.5 MG TABLET PO ONE (22:00)
[2022-12-09] MEDS ORDERED: zyPREXA 5MG TABLET PO ONE (22:00)
[2022-12-10] MEDS ORDERED: NON-FORMULARY ITEM (Apixaban [Eliquis] 5 MG Tab.Ds.Pk) PO SCH (10:00)
[2022-12-10] MEDS ORDERED: NEURONTIN PO SCH (10:00)
[2022-12-10] MEDS ORDERED: ELIQUIS 2.5 MG TABLET PO SCH (10:00)
[2022-12-10 11:05] VITALS: BP 113/60; O2SAT 93
[2022-12-10 14:38] VITALS: PULSE 87
[2022-12-10] MEDS ORDERED: zyPREXA 5MG TABLET PO SCH (22:00)
== END 2022-12-10 15:00 ==
LOC: ED 19:40 → ICU 22:33
PROVIDERS: ADMIT Family Medicine; ATTEND Family Medicine
DX: T46.1X2A Poisoning by calcium-channel blockers, intentional self-harm, initial encounter (principal); T14.91XA Suicide attempt, initial encounter; F31.81 Bipolar II disorder; I10 Essential (primary) hypertension; I95.9 Hypotension, unspecified; Z79.01 Long term (current) use of anticoagulants; Z79.899 Other long term (current) drug therapy; Z72.0 Tobacco use; Z20.828 Contact with and (suspected) exposure to other viral communicable diseases; Z85.51 Personal history of malignant neoplasm of bladder
CPT/HCPCS: 0241U; 36000; 36415; 71045; 80053; 80307; 85025; 90791; 93005; 94760; 99285; 99291; Q3014; 93268; Q0162; A9270-GY; G0378; G0480

== ENCOUNTER 2023-05-03 00:22 | Emergency (ER) | payer MEDICAID ==
[2023-05-03] MEDS ORDERED: XYLOCAINE 1% HCL 20 ML MDV IJ ONE (00:23)
--- NOTE | 2023-05-03 00:28 | ERPHSYRPT ---
- History of Present Illness Time Seen by Provider: 05/03/23 00:27 Source: patient Exam Limitations: no limitations Physician History: This is a 68-year-old white male patient of Dr. Campbell who presents with bilateral groin pain. He has known bilateral inguinal hernias. He was supposed to get the hernias fixed recently. However, the surgeon canceled the surgery since the patient did not have anyone at home to care for him. Patient has had some difficulty urinating as well. He has been urinating and having bowel movements but it is more difficult than usual/typical for him. Patient has a history of DVTs on Coumadin, he has a history of anxiety, ADD, bipolar disorder, depression, COPD and degenerative disc disease. Patient was brought into the emergency department by the paramedics who offered independent history on this patient Activites at Onset: none Quality: aching Onset Location: groin (Bilateral) Pain Radiation: none Severity of Pain-Max: mild (To moderate) Severity of Pain-Current: mild (To moderate) Modifying Factors: Improves With: nothing Associated Symptoms: denies symptoms Prior abdominal problems: none Allergies/Adverse Reactions: ciprofloxacin [From Cipro] Allergy (Intermediate, Verified 12/08/22 20:27) INFLAMES TENDONS ciprofloxacin HCl [From Cipro] Allergy (Intermediate, Verified 12/08/22 20:27) INFLAMES TENDONS diltiazem HCl [From Cardizem] Allergy (Intermediate, Verified 12/08/22 20:27) Hives EDEMA levofloxacin [From Levaquin] Allergy (Intermediate, Verified 12/08/22 20:27) INFLAMES TENDONS sertraline HCl [From Zoloft] Allergy (Intermediate, Verified 12/08/22 20:27) HIGH HEART RATE Sulfa (Sulfonamide Antibiotics) [Sulfa(Sulfonamide Antibiotics)] Allergy (Intermediate, Verified 12/08/22 20:27) Hives sulfamethoxazole [From Bactrim] Allergy (Intermediate, Verified 05/03/23 00:24) Hives trimethoprim [From Bactrim] Allergy (Intermediate, Verified 05/03/23 00:24) Hives paroxetine [From Paxil] Allergy (Verified 12/08/22 20:27) zolpidem tartrate [From Ambien] Adverse Reaction (Intermediate, Verified 12/08/22 20:27) "DROGGY ALL DAY LONG" Home Medications: Tamsulosin HCl [Flomax] 0.4 mg PO HS 03/31/16 [History] Verapamil HCl 180 mg PO HS 05/30/17 [History] Olanzapine 5 mg [zyPREXA 5MG TABLET] 10 mg PO HS 06/09/21 [History] Pramipexole Di-HCl [Pramipexole ER] 0.75 mg PO HS 06/09/21 [History] Gabapentin 600 mg PO TID 12/09/22 [History] Hx Tetanus, Diphtheria Vaccination/Date Given: No Hx Influenza Vaccination/Date Given: No Hx Pneumococcal Vaccination/Date Given: No Travel Risk - International Travel Have you traveled outside of the country in past 3 weeks: No - Coronavirus Screening Are you exhibiting any of the following symptoms?: No Close contact with a COVID-19 positive Pt in past 14-21 Days: No - Vaccine Status Have you recieved a Covid-19 vaccination: Yes 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[employer] - Vaccination Dates Date of 2cond Vaccination (if applicable): 2021 - Past Medical History Pertinent Past Medical History: Yes Neurological History: No Pertinent History ENT History: No Pertinent History Cardiac History: Deep Vein Thrombosis, Hypertension, Myocardial Infarction ([place]) Respiratory History: COPD, Emphysema, Pulmonary Embolism Endocrine Medical History: No Pertinent History Musculoskeletal History: Degenerative Disk Disease GI Medical History: No Pertinent History History: Bladder Cancer Psycho-Social History: Anxiety, Attention Deficit Disorder, Bipolar, Depression Male Reproductive Disorders: No Pertinent History - Past Surgical History Past Surgical History: Yes Neuro Surgical History: No Pertinent History Cardiac: No Pertinent History Respiratory: No Pertinent History Gastrointestinal: Hernia Repair Musculoskeletal: Joint Replacement Male Surgical History: Other Other Surgical History: 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 REPLACEMENT - Social History Smoking Status: Current every day smoker How long have you smoked: 30 years Exposure to second hand smoke: Yes Drug Use: marijuana, methamphetamines Patient Lives Alone: Yes Significant Family History: no pertinent family hx - Review of Systems Constitutional: No Symptoms Eyes: No Symptoms Ears, Nose, & Throat: No Symptoms Respiratory: No Symptoms Cardiac: No Symptoms Abdominal/Gastrointestinal: No Symptoms Genitourinary Symptoms: Hesitancy, Other (Bilateral inguinal hernias) Musculoskeletal: No Symptoms Skin: No Symptoms Neurological: No Symptoms Psychological: No Symptoms Endocrine: No Symptoms Hematologic/Lymphatic: No Symptoms Immunological/Allergic: No Symptoms All Other Systems: Reviewed and Negative - Nursing Vital Signs Nursing Vital Signs: Initial Vital Signs Temperature 98.2 F 05/03/23 00:27 Pulse Rate 81 05/03/23 00:27 Respiratory Rate 16 05/03/23 00:27 Blood Pressure 122/87 05/03/23 00:27 O2 Sat by Pulse Oximetry 93 L 05/03/23 00:27 Pain Scale Pain Intensity 10 - Physical Exam General Appearance: no apparent distress, alert, anxiety Eye Exam: PERRL/EOMI, eyes nml inspection Ears, Nose, Throat Exam: normal ENT inspection, moist mucous membranes Neck Exam: normal inspection, non-tender, supple, full range of motion Respiratory Exam: normal breath sounds, lungs clear, airway intact, No chest tenderness, No respiratory distress Cardiovascular Exam: regular rate/rhythm, normal heart sounds, normal peripheral pulses Gastrointestinal/Abdomen Exam: soft, normal bowel sounds, No tenderness Rectal Exam: not done Male Genital Exam: inguinal tenderness (Bilateral, reducible inguinal hernias left side larger than the right. 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 tested, normal mood/affect, nml cerebellar function, nml station & gait, sensation nml Skin Exam: normal color, warm, dry Lymphatic Exam: No adenopathy SpO2 Interpretation: normal O2 Delivery: Room Air - Course Nursing assessment & vital signs reviewed: Yes Ordered Tests: Active Orders 24 hr Category Date Time Status CULTURE,URINE Stat Lab 05/03/23 00:50 Received UA W/RFX UR CULTURE Stat Lab 05/03/23 00:50 Completed Lab/Rad Data: Laboratory Results 05/03/23 Range/Units 00:50 Urine Color Yellow (Yellow) Urine Appearance Turbid A (Clear) Urine pH 7.0 (4.6-8.0) Ur Specific [place] 1.020 (1.005-1.030) Urine Protein Negative (Negative) Urine Glucose (UA) Negative (Negative) mg/dL Urine Ketones Negative (Negative) Urine Blood Negative (Negative) Urine Nitrite Negative (Negative) Urine Bilirubin Negative (Negative) Urine Urobilinogen 1.0 A (0.2) mg/dL Ur Leukocyte Esterase Moderate A (Negative) Urine Microscopic RBC 0-2 (0-5) /HPF Urine Microscopic WBC 51-100 A (0-5) /HPF Ur Epithelial Cells Moderate A (None Seen) /HPF Amorphous Crystals Moderate A (None Seen) /HPF Urine Bacteria Few A (None Seen) /HPF Urine Culture Reflexed YES (NO) - Progress Progress: unchanged Progress Note: 05/03/23 00:55 This patient's medical issues of low complexity. The level of complexity and the work-up performed is based on review of the patient's past medical history, review of the patient's medication list, review of the patient's drug allergy list, history present illness and physical findings on examination. The work-up of this patient will include a urinalysis. Patient does not require any other type of laboratory work-up or radiographic studies. He has bilateral inguinal hernias that are easily reducible. We will check a urinalysis for infection. Patient needs to follow-up with his surgeon to reschedule inguinal hernia repairs. There are no acute, emergent medical issues here this morning. Counseled pt/family regarding: diagnosis, need for follow-up Medical Desision Making - Diagnostic Testing Diagnostic test were ordered, analyzed, and reviewed by me: Yes - Risk of complications Low Risk: Low risk of morbidity from additional dx testing or treatment The pt has a mod risk of morbidity or mortality based on: Need for prescription drug management - Departure Departure Disposition: Home Clinical Impression: Reducible inguinal hernia, UTI (urinary tract infection) Condition: Stable Critical Care Time: No Referrals: ALEXANDRIA CAMPBELL [Primary Care Provider] - Follow up/PCP as directed Additional Instructions: Call your surgeon today, 05/03/2023, and make arrangements for bilateral inguinal hernia repairs. Take your medications as prescribed. Drink plenty of fluids Prescriptions: Cefdinir 300 mg PO BID #14 cap
[2023-05-03 01:11] LABS: Appearance Turbid (Clear); Bacteria Few /HPF (None Seen); Bilirubin Negative (Negative); Blood Negative (Negative); Epithelial Cells Moderate /HPF (None Seen); Glucose, Urine Negative (Negative); Ketones Negative (Negative); Leukocyte Esterase Moderate (Negative); Nitrite Negative (Negative); Protein,Urine Dip Negative (Negative); RBC 0-2 /HPF (0-5); WBC 51-100 /HPF (0-5)
[2023-05-03 01:18] LABS: ADD URINE CULTURE? YES (NO); Amourphous Crystal Moderate /HPF (None Seen)
[2023-05-03] MEDS ORDERED: Rocephin 1000 MG INJ IM ONE (01:22)
[2023-05-03] MEDS ORDERED: Rocephin 1000 MG INJ ONE (01:24)
[2023-05-03 01:35] VITALS: BP 106/64; PULSE 69; O2SAT 91
== END 2023-05-03 01:55 | disposition home or self-care (01) ==
LOC: ED 00:22
DX: K40.20 Bilateral inguinal hernia, without obstruction or gangrene, not specified as recurrent (principal); N39.0 Urinary tract infection, site not specified; R10.30 Lower abdominal pain, unspecified; I10 Essential (primary) hypertension; Z79.01 Long term (current) use of anticoagulants; Z79.899 Other long term (current) drug therapy; Z72.0 Tobacco use
CPT/HCPCS: 81001; 87086; 96372; 99283; J0696

== ENCOUNTER 2023-05-03 03:05 | Emergency (ER) | payer MEDICAID ==
[2023-05-03 03:46] LABS: Barbiturate,Urine NEGATIVE (NEGATIVE)
[2023-05-03 03:47] LABS: ACETAMINOPHEN < 10 ug/ml (10-30); ALBUMIN 3.6 g/dL (3.5-5.0); ALKALINE PHOSPHATASE 63 U/L (38-126); BLOOD UREA NITROGEN 23 mg/dL (9-20); CHLORIDE 109 mmol/L (98-107); Carbon Dioxide 24 mmol/L (22-30); Creatinine 1 0.76 mg/dL (0.66-1.25); EST GLOMERULAR FILTRATION RATE > 60.0 ML/MIN; Glucose 118 mg/dL (74-106); Potassium 3.8 mmol/L (3.5-5.1); SALICYLATE < 1.0 mg/dL (2-20); SGOT/AST 22 U/L (17-59); SGPT/ALT 19 U/L (0-50); SODIUM 141 mmol/L (137-145); Total Protein 6.3 g/dL (6.3-8.2)
[2023-05-03 04:02] LABS: Absolute Neutrophil Ct (ANC) 2.93 x10^3/uL (1.4-6.9); BASOPHIL % 0.8 % (0.0-0.4); Basophil (Absolute #) 0.05 x10^3/uL (0-0.4); Eosinophil % 3.9 % (0.00-5.0); Eosinophil (Absolute #) 0.23 x10^3/uL (0-0.5); Hemoglobin 15.7 g/dL (12.5-18.0); IMMATURE GRAN # 0.02 x10^3u/L (0.00-0.03); IMMATURE GRAN % 0.3 % (0.00-0.4); Lymphocyte (Absolute #) 2.26 x10^3/uL (1.0-4.6); Lymphocytes % 37.9 % (24.0-44.0); Mean Cell Volume 95.7 fL (78-100); Mean Corpuscular Hemoglobin 30.7 pg (26-32); Mean Platelet Volume 10.4 fL (7.5-11.0); Monocyte (Absolute #) 0.47 x10^3/uL (0.0-1.3); Monocytes % 7.9 % (0.0-12.0); Neutrophil % 49.2 % (36.0-66.0); Platelet Count 192 x10^3/uL (150-450); Red Blood Count 5.12 x10^6/uL (4.1-5.6); Red Cell Distribution Width 14.8 % (11.5-14.0)
[2023-05-03 04:16] LABS: Amphetamine,Urine NEGATIVE (NEGATIVE); Benzodiazepine,Urine NEGATIVE (NEGATIVE); Cocaine,Urine NEGATIVE (NEGATIVE); Methadone,Urine NEGATIVE (NEGATIVE); Opiate,Urine NEGATIVE (NEGATIVE); PCP,Urine NEGATIVE (NEGATIVE); THC,Urine POSITIVE (NEGATIVE)
--- NOTE | 2023-05-03 04:37 | ERPHSYRPT ---
- History of Present Illness Time Seen by Provider: 05/03/23 03:15 Source: patient Exam Limitations: no limitations Patient Subjective Stated Complaint: pt states he is suicidal and has been having suicidal thoughts for several days. states he does have a plan and would overdose on his medications at home. Triage Nursing Assessment: pt alert and oriented, answers questions approp. pt ambulates into room with cane and steady gait noted. respirations nonlabored. skin warm and dry. pt calm and cooperative at th is time. Physician History: This is a 68-year-old white male patient who I just saw in the emergency depart ment and who again presents himself to the triage area of the emergency department because he states that he is suicidal and he has a plan. There was nothing in particular that brought it on. He does have lack of electricity and utilities at his home and he does not have reliable transportation service. Patient was in the waiting room after we discharge him from the emergency department for bilateral inguinal hernias that were reducible. He denies headache pain. He denies chest pain. He denies shortness of breath. He denies abdominal pain. He is not homicidal. Patient has a history of anxiety, bipolar disorder and ADD. He also has a history of COPD and DVT. Timing/Duration: day(s) Severity of Symptoms-Max: moderate Severity of Symptoms-Current: mild (Moderate) Context related to: living circumstances Suicidal thoughts: specific plan Associated Symptoms: anxiety, depressed, frustrated Previous symptoms: same symptoms as today, no recent treatment Allergies/Adverse Reactions: ciprofloxacin [From Cipro] Allergy (Intermediate, Verified 05/03/23 03:26) INFLAMES TENDONS ciprofloxacin HCl [From Cipro] Allergy (Intermediate, Verified 05/03/23 03:26) INFLAMES TENDONS diltiazem HCl [From Cardizem] Allergy (Intermediate, Verified 05/03/23 03:26) Hives EDEMA levofloxacin [From Levaquin] Allergy (Intermediate, Verified 05/03/23 03:26) INFLAMES TENDONS sertraline HCl [From Zoloft] Allergy (Intermediate, Verified 05/03/23 03:26) HIGH HEART RATE Sulfa (Sulfonamide Antibiotics) [Sulfa(Sulfonamide Antibiotics)] Allergy (Intermediate, Verified 05/03/23 03:26) Hives sulfamethoxazole [From Bactrim] Allergy (Intermediate, Verified 05/03/23 03:26) Hives trimethoprim [From Bactrim] Allergy (Intermediate, Verified 05/03/23 03:26) Hives paroxetine [From Paxil] Allergy (Verified 05/03/23 03:26) zolpidem tartrate [From Ambien] Adverse Reaction (Intermediate, Verified 05/03/23 03:26) "DROGGY ALL DAY LONG" Home Medications: Tamsulosin HCl [Flomax] 0.4 mg PO HS 03/31/16 [History] Verapamil HCl 180 mg PO HS 05/30/17 [History] Olanzapine 5 mg [zyPREXA 5MG TABLET] 10 mg PO HS 06/09/21 [History] Pramipexole Di-HCl [Pramipexole ER] 0.75 mg PO HS 06/09/21 [History] Gabapentin 600 mg PO TID 12/09/22 [History] Hx Tetanus, Diphtheria Vaccination/Date Given: No Hx Influenza Vaccination/Date Given: No Hx Pneumococcal Vaccination/Date Given: No Immunizations Up to Date: No Travel Risk - International Travel Have you traveled outside of the country in past 3 weeks: No - Coronavirus Screening Are you exhibiting any of the following symptoms?: No Close contact with a COVID-19 positive Pt in past 14-21 Days: No - Vaccine Status Have you recieved a Covid-19 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: 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[employer] - Vaccination Dates Date of 2cond Vaccination (if applicable): 2021 - Past Medical History Pertinent Past Medical History: Yes Neurological History: No Pertinent History ENT History: No Pertinent History Cardiac History: Deep Vein Thrombosis, Hypertension, Myocardial Infarction ([place]) Respiratory History: COPD, Emphysema, Pulmonary Embolism Endocrine Medical History: No Pertinent History Musculoskeletal History: Degenerative Disk Disease GI Medical History: No Pertinent History History: Bladder Cancer Psycho-Social History: Anxiety, Attention Deficit Disorder, Bipolar, Depression Male Reproductive Disorders: No Pertinent History Other Medical History: refuses home o2 - Past Surgical History Past Surgical History: Yes Neuro Surgical History: No Pertinent History Cardiac: No Pertinent History Respiratory: No Pertinent History Gastrointestinal: Hernia Repair Genitourinary: Other Musculoskeletal: Joint Replacement Male Surgical History: Other Other Surgical History: 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 REPLACEMENT - Social History Smoking Status: Current every day smoker How long have you smoked: years Exposure to second hand smoke: Yes Drug Use: marijuana Patient Lives Alone: Yes (no electricity at home) Significant Family History: no pertinent family hx - Review of Systems Constitutional: No Symptoms Eyes: No Symptoms Ears, Nose, & Throat: No Symptoms Respiratory: No Symptoms Cardiac: No Symptoms Abdominal/Gastrointestinal: No Symptoms Genitourinary Symptoms: Other (Bilateral inguinal hernias, UTI) Musculoskeletal: No Symptoms Skin: No Symptoms Neurological: No Symptoms Psychological: No Symptoms Endocrine: No Symptoms Hematologic/Lymphatic: No Symptoms Immunological/Allergic: No Symptoms All Other Systems: Reviewed and Negative - Nursing Vital Signs Nursing Vital Signs: Initial Vital Signs Temperature 97.4 F 05/03/23 03:06 Pulse Rate 83 05/03/23 03:06 Respiratory Rate 16 05/03/23 03:06 Blood Pressure 133/95 05/03/23 03:06 O2 Sat by Pulse Oximetry 94 L 05/03/23 03:06 Pain Scale Pain Intensity 7 - Physical Exam General Appearance: no apparent distress, alert, anxiety Eyes, Ears, Nose, Throat Exam: normal ENT inspection, moist mucous membranes Neck Exam: normal inspection, non-tender, supple, full range of motion Respiratory Exam: normal breath sounds, lungs clear, airway intact, No chest te nderness, No respiratory distress Cardiovascular Exam: regular rate/rhythm, normal heart sounds, normal peripheral pulses Gastrointestinal/Abdominal Exam: soft, normal bowel sounds, hernia (Bilateral reducible inguinal hernias), No tenderness Extremities Exam: normal inspection, normal range of motion, No evidence of injury Current Suicidality: has suicide plan Neurological Exam: alert, normal mood/affect, calm, 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-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 nml as tested, oriented x 3, depressed affect Appearance: appropriate appearance, appropriate insight Behavior/Eye Contact/Speech: alert & cooperative, good eye contact, normal speech Thoughts/Hallucinations: normal thought pattern, no apparent hallucination Skin Exam: normal color, warm, dry SpO2 Interpretation: borderline oxygenation SpO2: 92 O2 Delivery: Room Air - Course Nursing assessment & vital signs reviewed: Yes EKG Interpreted by Me: RATE (72), Sinus Rhythm, Right Violet Deviation (Borderline ), NORMAL INTERVALS, NORMAL QRS, NORMAL ST-T, Other Ordered Tests: Active Orders 24 hr Category Date Time Status EKG-ER Only STAT Care 05/03/23 03:13 Active ACETAMINOPHEN Stat Lab 05/03/23 03:30 Completed Alcohol [ETHYL ALCOHOL] Stat Lab 05/03/23 03:30 Completed CBC W DIFF Stat Lab 05/03/23 03:30 Completed CMP Stat Lab 05/03/23 03:30 Completed SALICYLATE Stat Lab 05/03/23 03:30 Completed Urine Triage Profile Stat Lab 05/03/23 03:27 Completed Lab/Rad Data: Laboratory Result Diagrams 05/03/23 03:30 05/03/23 03:30 Laboratory Results 05/03/23 05/03/23 05/03/23 Range/Units 03:30 03:30 03:30 WBC 6.0 (4.0-10.5) x10^3/uL RBC 5.12 (4.1-5.6) x10^6/uL Hgb 15.7 (12.5-18.0) g/dL Hct 49.0 (42-50) % MCV 95.7 (78-100) fL MCH 30.7 (26-32) pg MCHC 32.0 (32-36) g/dL RDW 14.8 H (11.5-14.0) % Plt Count 192 (150-450) x10^3/uL MPV 10.4 (7.5-11.0) fL Gran % 49.2 (36.0-66.0) % Immature Gran % (Auto) 0.3 (0.00-0.4) % Nucleat RBC Rel Count 0.0 (0.00-0.1) % Eos # (Auto) 0.23 (0-0.5) x10^3/uL Immature Gran # (Auto) 0.02 (0.00-0.03) x10^3u/L Absolute Lymphs (auto) 2.26 (1.0-4.6) x10^3/uL Absolute Monos (auto) 0.47 (0.0-1.3) x10^3/uL Absolute Nucleated RBC 0.00 (0.00-0.01) x10^3u/L Lymphocytes % 37.9 (24.0-44.0) % Monocytes % 7.9 (0.0-12.0) % Eosinophils % 3.9 (0.00-5.0) % Basophils % 0.8 (0.0-0.4) % Absolute Granulocytes 2.93 (1.4-6.9) x10^3/uL Basophils # 0.05 (0-0.4) x10^3/uL Sodium 141 (137-145) mmol/L Potassium 3.8 (3.5-5.1) mmol/L Chloride 109 H (98-107) mmol/L Carbon Dioxide 24 (22-30) mmol/L Anion Gap 12.0 (5-15) MEQ/L BUN 23 H (9-20) mg/dL Creatinine 0.76 (0.66-1.25) mg/dL Estimated GFR > 60.0 ML/MIN Glucose 118 H (74-106) mg/dL Calcium 9.0 (8.4-10.2) mg/dL Total Bilirubin 0.20 (0.2-1.3) mg/dL AST 22 (17-59) U/L ALT 19 (0-50) U/L Alkaline Phosphatase 63 (38-126) U/L Serum Total Protein 6.3 (6.3-8.2) g/dL Albumin 3.6 (3.5-5.0) g/dL Salicylates < 1.0 L (2-20) mg/dL Urine Opiates Level (NEGATIVE) Ur Methadone (NEGATIVE) Acetaminophen < 10 L (10-30) ug/ml Urine Barbiturates (NEGATIVE) Ur Phencyclidine (PCP) (NEGATIVE) Urine Amphetamine (NEGATIVE) U Benzodiazepine Level (NEGATIVE) Urine Cocaine (NEGATIVE) Urine Marijuana (THC) (NEGATIVE) Ethyl Alcohol < 10 (0-10) mg/dL 05/03/23 Range/Units 03:27 WBC (4.0-10.5) x10^3/uL RBC (4.1-5.6) x10^6/uL Hgb (12.5-18.0) g/dL Hct (42-50) % MCV (78-100) fL MCH (26-32) pg MCHC (32-36) g/dL RDW (11.5-14.0) % Plt Count (150-450) x10^3/uL MPV (7.5-11.0) fL Gran % (36.0-66.0) % Immature Gran % (Auto) (0.00-0.4) % Nucleat RBC Rel Count (0.00-0.1) % Eos # (Auto) (0-0.5) x10^3/uL Immature Gran # (Auto) (0.00-0.03) x10^3u/L Absolute Lymphs (auto) (1.0-4.6) x10^3/uL Absolute Monos (auto) (0.0-1.3) x10^3/uL Absolute Nucleated RBC (0.00-0.01) x10^3u/L Lymphocytes % (24.0-44.0) % Monocytes % (0.0-12.0) % Eosinophils % (0.00-5.0) % Basophils % (0.0-0.4) % Absolute Granulocytes (1.4-6.9) x10^3/uL Basophils # (0-0.4) x10^3/uL Sodium (137-145) mmol/L Potassium (3.5-5.1) mmol/L Chloride (98-107) mmol/L Carbon Dioxide (22-30) mmol/L Anion Gap (5-15) MEQ/L BUN (9-20) mg/dL Creatinine (0.66-1.25) mg/dL Estimated GFR ML/MIN Glucose (74-106) mg/dL Calcium (8.4-10.2) mg/dL Total Bilirubin (0.2-1.3) mg/dL AST (17-59) U/L ALT (0-50) U/L Alkaline Phosphatase (38-126) U/L Serum Total Protein (6.3-8.2) g/dL Albumin (3.5-5.0) g/dL Salicylates (2-20) mg/dL Urine Opiates Level NEGATIVE (NEGATIVE) Ur Methadone NEGATIVE (NEGATIVE) Acetaminophen (10-30) ug/ml Urine Barbiturates NEGATIVE (NEGATIVE) Ur Phencyclidine (PCP) NEGATIVE (NEGATIVE) Urine Amphetamine NEGATIVE (NEGATIVE) U Benzodiazepine Level NEGATIVE (NEGATIVE) Urine Cocaine NEGATIVE (NEGATIVE) Urine Marijuana (THC) POSITIVE (NEGATIVE) Ethyl Alcohol (0-10) mg/dL - Progress Progress: unchanged Progress Note: 05/03/23 04:37 This patient's medical issue is 1 of moderate to high complexity. The level of complexity and the work-up performed is based on review of the patient's past medical history, review of the patient's medication list, review of the patient's drug allergies, history of present illness and physical findings on examination. The work-up in this patient includes a twelve-lead EKG, urine drug screen (urinalysis was performed on the last visit just prior to him returning to the emergency department triage area), CBC, CMP, alcohol level, acetaminophen level, salicylate level. 05/03/23 06:31 This patient is awaiting transfer to [facility] as an inpatient resident. The patient care while in the hospital emergency department is being transferred to Dr. Montaño while we await the final determination. I am transferring care to to him at shift change. Counseled pt/family regarding: lab results, diagnosis, need for follow-up Medical Desision Making - Discussion of managment Care discussed with:: specialist ([facility]) Reviewed:: Test results, Need for additional workup Will see patient: in hospital - Diagnostic Testing Diagnostic test were ordered, analyzed, and reviewed by me: Yes - Risk of complications The pt has a high risk of morbidity or mortality based on: Decision regarding hospitilization or escalation of hosp level of care - Departure Departure Disposition: Transfer Clinical Impression: Suicidal ideation, Marijuana use Condition: Stable Critical Care Time: No Referrals: ALEXANDRIA LAWRENCE [Primary Care Provider] - Follow up/PCP as directed
[2023-05-03 09:19] VITALS: BP 145/77; PULSE 80; O2SAT 94
== END 2023-05-03 08:45 ==
LOC: ED 03:05
DX: R45.851 Suicidal ideations (principal); F12.90 Cannabis use, unspecified, uncomplicated; I10 Essential (primary) hypertension; Z79.899 Other long term (current) drug therapy; Z72.0 Tobacco use; Z59.12 Inadequate housing utilities; Z59.82 Transportation insecurity
CPT/HCPCS: 36415; 80053; 80143; 80179; 80307; 82077; 85025; 93005; 99285

== ENCOUNTER 2024-11-01 18:40 | Observation (INO) | payer MEDICARE, OTHER ==
--- NOTE | 2024-11-01 19:20 | ERPHSYRPT ---
- History of Present Illness Time Seen by Provider: 11/01/24 19:15 Source: patient Exam Limitations: no limitations Patient Subjective Stated Complaint: Weakness Triage Nursing Assessment: Patient brought into ED per EMS and transferred to bed with assist of 3. Patient's skin pink, warm and dry. Patient complains of increased weakness today. Patient reports he only heats with propane and he ran out of propane 8 hours prior to coming to ED. Patient reports he can't take care of himself and wanting to go to [facility], which he stated he talked to them 1 month ago. Physician History: Patient is here he said initially for pain in his hands and feet from neuropathy. It is chronic. He has been treated for it in the past. After that he went on to tell me that a bunch of social issues are going on with him. He does not have heat in his house now he says he cannot live alone and take care of himself he is wanting correction placement. His main complaint is pain of the hands and feet. He says that he is little bit fatigued to I know that he has a history of polysubstance abuse.That is about all the history that I can get out of him. Allergies/Adverse Reactions: ciprofloxacin [From Cipro] Allergy (Intermediate, Verified 11/01/24 18:51) INFLAMES TENDONS ciprofloxacin HCl [From Cipro] Allergy (Intermediate, Verified 11/01/24 18:51) INFLAMES TENDONS diltiazem HCl [From Cardizem] Allergy (Intermediate, Verified 11/01/24 18:51) Hives EDEMA levofloxacin [From Levaquin] Allergy (Intermediate, Verified 11/01/24 18:51) INFLAMES TENDONS sertraline HCl [From Zoloft] Allergy (Intermediate, Verified 11/01/24 18:51) HIGH HEART RATE Sulfa (Sulfonamide Antibiotics) [Sulfa(Sulfonamide Antibiotics)] Allergy (Intermediate, Verified 11/01/24 18:51) Hives sulfamethoxazole [From Bactrim] Allergy (Intermediate, Verified 11/01/24 18:51) Hives trimethoprim [From Bactrim] Allergy (Intermediate, Verified 11/01/24 18:51) Hives paroxetine [From Paxil] Allergy (Verified 11/01/24 18:51) zolpidem tartrate [From Ambien] Adverse Reaction (Intermediate, Verified 11/01/24 18:51) "DROGGY ALL DAY LONG" Home Medications: Tamsulosin HCl [Flomax] 0.4 mg PO HS 03/31/16 [History] Verapamil HCl 180 mg PO HS 05/30/17 [History] Olanzapine 5 mg [zyPREXA 5MG TABLET] 10 mg PO HS 06/09/21 [History] Pramipexole Di-HCl [Pramipexole ER] 0.75 mg PO HS 06/09/21 [History] Gabapentin 600 mg PO TID 12/09/22 [History] Hx Tetanus, Diphtheria Vaccination/Date Given: No Hx Influenza Vaccination/Date Given: No Hx Pneumococcal Vaccination/Date Given: No Immunizations Up to Date: Yes Travel Risk - International Travel Have you traveled outside of the country in past 3 weeks: No - Emerging Infectious Disease Are you exhibiting symptoms associated with any current EIDs: No - Review of Systems Constitutional: Fatigue, Malaise Eyes: No Symptoms Ears, Nose, & Throat: No Symptoms Respiratory: No Symptoms Cardiac: No Symptoms Neurological: Other (Pain in the hands and feet consistent with neuropathy) All Other Systems: Reviewed and Negative - Past Medical History Pertinent Past Medical History: Yes Neurological History: No Pertinent History ENT History: No Pertinent History Cardiac History: Deep Vein Thrombosis, Hypertension, Myocardial Infarction (IA) Respiratory History: COPD, Emphysema, Pulmonary Embolism Endocrine Medical History: No Pertinent History Musculoskeletal History: Degenerative Disk Disease GI Medical History: No Pertinent History History: Bladder Cancer Psycho-Social History: Anxiety, Attention Deficit Disorder, Bipolar, Depression Male Reproductive Disorders: No Pertinent History Other Medical History: refuses home o2 - Past Surgical History Past Surgical History: Yes Neuro Surgical History: No Pertinent History Cardiac: No Pertinent History Respiratory: No Pertinent History Gastrointestinal: Hernia Repair Genitourinary: Other Musculoskeletal: Joint Replacement Male Surgical History: Other Other Surgical History: 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 REPLACEMENT Significant Family History: no pertinent family hx - Social History Smoking Status: Current every day smoker How long have you smoked: years Exposure to second hand smoke: Yes Drug Use: marijuana Patient Lives Alone: Yes (no electricity at home) - Social Determinants of Health Will the patient participate in the screening: Yes Do you worry about a steady place to live?: No Do you have any problems with any of the following?: Lack of heat, Oven/Stove not working, Inadequate lighting In the past 12 months,have you had to go without utilities?: Yes Transportation Issues: Yes Has anyone in your support network made you feel unsafe?: No Have you or anyone in your house had to go without enough: Yes - Nursing Vital Signs Nursing Vital Signs: Initial Vital Signs Blood Pressure 131/93 11/01/24 18:46 O2 Sat by Pulse Oximetry 95 11/01/24 18:46 Pain Scale Pain Intensity 6 - Physical Exam General Appearance: no apparent distress Eye Exam: PERRL/EOMI Ears, Nose, Throat Exam: normal ENT inspection Respiratory Exam: other (Coarse breath sounds bilaterallyNo focal signs of consolidation.) Cardiovascular Exam: regular rate/rhythm Gastrointestinal/Abdomen Exam: soft, normal bowel sounds Back Exam: normal inspection, normal range of motion Neurologic Exam: alert, cooperative, other (No acute neurological deficits) SpO2: 95 - Course Nursing assessment & vital signs reviewed: Yes Ordered Tests: Active Orders 24 hr Category Date Time Status ACO SDOH Referral ONCE Cons 11/01/24 19:11 Active CHEST 1 VIEW (PORTABLE) Stat Exams 11/01/24 19:26 Taken CBC W DIFF Stat Lab 11/01/24 19:45 Completed CMP Stat Lab 11/01/24 19:45 Completed CULTURE,URINE Stat Lab 11/01/24 20:57 Received UA W/RFX UR CULTURE Stat Lab 11/01/24 20:57 Completed Lab/Rad Data: Laboratory Result Diagrams 11/01/24 19:45 11/01/24 19:45 Laboratory Results 11/01/24 11/01/24 11/01/24 Range/Units 20:57 19:45 19:45 WBC 7.8 (4.23-9.07) x10^3/uL RBC 5.37 (4.63-6.08) x10^6/uL Hgb 16.6 (13.7-17.5) g/dL Hct 48.2 (40.1-51.0) % MCV 89.8 (79.0-92.2) fL MCH 30.9 (25.7-32.2) pg MCHC 34.4 (32.3-36.5) g/dL RDW 12.8 (11.6-14.4) % Plt Count 267 (163-337) x10^3/uL MPV 9.3 L (9.4-12.4) fL Gran % 70.3 H (34.0-67.9) % Immature Gran % (Auto) 0.4 (0.001-0.429) % Nucleat RBC Rel Count 0.0 (0.00-0.2) % Eos # (Auto) 0.28 (0.04-0.54) x10^3/uL Immature Gran # (Auto) 0.03 (0.001-0.031) x10^3u/L Absolute Lymphs (auto) 1.24 L (1.32-3.57) x10^3/uL Absolute Monos (auto) 0.72 (0.30-0.82) x10^3/uL Absolute Nucleated RBC 0.00 (0.00-0.012) x10^3u/L Lymphocytes % 15.9 L (21.8-53.1) % Monocytes % 9.2 (5.3-12.2) % Eosinophils % 3.6 (0.8-7.0) % Basophils % 0.6 (0.2-1.2) % Absolute Granulocytes 5.49 H (1.78-5.38) x10^3/uL Basophils # 0.05 (0.01-0.08) x10^3/uL Sodium 137 (135-145) mmol/L Potassium 4.2 (3.5-5.1) mmol/L Chloride 105 (98-107) mmol/L Carbon Dioxide 22 (22-30) mmol/L Anion Gap 14.7 (5-15) MEQ/L BUN 8 L (9-20) mg/dL Creatinine 0.67 (0.66-1.25) mg/dL Estimated GFR 102.3 ML/MIN Glucose 117 H (74-106) mg/dL Calcium 10.1 (8.4-10.2) mg/dL Total Bilirubin 0.30 (0.2-1.3) mg/dL AST 26 (17-59) U/L ALT 21 (0-50) U/L Alkaline Phosphatase 57 (38-126) U/L Serum Total Protein 7.4 (6.3-8.2) g/dL Albumin 4.4 (3.5-5.0) g/dL Urine Color Yellow (Yellow) Urine Appearance Clear (Clear) Urine pH 6.5 (4.6-8.0) Ur Specific [place] <=1.005 (1.005-1.030) Urine Protein Negative (Negative) Urine Glucose (UA) Negative (Negative) mg/dL Urine Ketones Negative (Negative) Urine Blood Negative (Negative) Urine Nitrite Negative (Negative) Urine Bilirubin Negative (Negative) Urine Urobilinogen 0.2 (0.2) mg/dL Ur Leukocyte Esterase Moderate A (Negative) U Hyaline Cast (Auto) NONE SEEN (0-2) /LPF Urine Microscopic RBC 0-2 (0-5) /HPF Urine Microscopic WBC 21-50 A (0-5) /HPF Ur Epithelial Cells None Seen (None Seen) /HPF Urine Bacteria None Seen (None Seen) /HPF Urine Culture Reflexed YES (NO) - Progress Progress Note: The patient was stable throughout the stay. His lab work all look good. He did have a UTI. General think he has pyelonephritis or sepsis or anything like that. He said he has talked to a correction about being placed. He is requesting correction placement he says that he cannot care for himself anymore.I spoke with the hospitalist. They agreed to admit him for observation status and have social worker masters see him in the morning 11/01/24 21:29 11/01/24 21:30 Medical Desision Making - External Record(s) Reviewed Records reviewed as a part of evaluation & management: Inpatient - Diagnostic Testing Diagnostic test were ordered, analyzed, and reviewed by me: Yes - Risk of complications Low Risk: Low risk of morbidity from additional dx testing or treatment - Departure Departure Disposition: Observation Clinical Impression: Acute UTI (urinary tract infection), Substance abuse Condition: Stable Critical Care Time: No Referrals: ALEXANDRIA LAWRENCE [Primary Care Provider] - Follow up/PCP as directed
[2024-11-01 19:46] LABS: Absolute Neutrophil Ct (ANC) 5.49 x10^3/uL (1.78-5.38); BASOPHIL % 0.6 % (0.2-1.2); Basophil (Absolute #) 0.05 x10^3/uL (0.01-0.08); Eosinophil % 3.6 % (0.8-7.0); Eosinophil (Absolute #) 0.28 x10^3/uL (0.04-0.54); Hematocrit 48.2 % (40.1-51.0); Hemoglobin 16.6 g/dL (13.7-17.5); IMMATURE GRAN # 0.03 x10^3u/L (0.001-0.031); IMMATURE GRAN % 0.4 % (0.001-0.429); Lymphocyte (Absolute #) 1.24 x10^3/uL (1.32-3.57); Lymphocytes % 15.9 % (21.8-53.1); Mean Cell Volume 89.8 fL (79.0-92.2); Mean Corpuscular Hemoglobin 30.9 pg (25.7-32.2); Mean Corpuscular Hgb Concent. 34.4 g/dL (32.3-36.5); Mean Platelet Volume 9.3 fL (9.4-12.4); Monocyte (Absolute #) 0.72 x10^3/uL (0.30-0.82); Monocytes % 9.2 % (5.3-12.2); Neutrophil % 70.3 % (34.0-67.9); Platelet Count 267 x10^3/uL (163-337); Red Blood Count 5.37 x10^6/uL (4.63-6.08); Red Cell Distribution Width 12.8 % (11.6-14.4); White Blood Count 7.8 x10^3/uL (4.23-9.07)
[2024-11-01 20:00] LABS: ALBUMIN 4.4 g/dL (3.5-5.0); ANION GAP 14.7 MEQ/L (5-15); BILIRUBIN,TOTAL 0.3 mg/dL (0.2-1.3); Calcium 10.1 mg/dL (8.4-10.2); Creatinine 1 0.67 mg/dL (0.66-1.25); EST GLOMERULAR FILTRATION RATE 102.3 ML/MIN; Potassium 4.2 mmol/L (3.5-5.1); Total Protein 7.4 g/dL (6.3-8.2)
[2024-11-01 21:16] LABS: Appearance Clear (Clear); Bacteria None Seen /HPF (None Seen); Bilirubin Negative (Negative); Blood Negative (Negative); Epithelial Cells None Seen /HPF (None Seen); Glucose, Urine Negative (Negative); Hyaline Casts NONE SEEN /LPF (0-2); Ketones Negative (Negative); Leukocyte Esterase Moderate (Negative); Nitrite Negative (Negative); Ph 6.5 (4.6-8.0); Protein,Urine Dip Negative (Negative); RBC 0-2 /HPF (0-5); Specific Gravity <=1.005 (1.005-1.030); Urobilinogen 0.2 mg/dL (0.2); WBC 21-50 /HPF (0-5)
[2024-11-01] MEDS ORDERED: BACTRIM DS TABLET PO ONE (22:36)
--- NOTE | 2024-11-01 23:09 | PCM.HP ---
History of Present Illness - Chief Complaint Chief Complaint: failure to thrive Date: 11/01/24 History of Present Illness: is a 69 year old male with h/o HTN, VTE, BPH, COPD, and peripheral neuropathy, who presents with failure to thrive. Patient states that he lives alone but has become more and more unable to care for himself. His propane heater broke last night and he is unable to fix it, and his home is too cold to live in. And per ED physician, may also be being evicted from his home. He also notes that he has been out of all of his medications for some time because he was unable to get to the doctor or get refills, except for the one that helps with his PTSD and anxiety, which ran out two days ago. He otherwise does not recall his past history or medications. Patient states he is finally ready to give up his home. He had previously spoke to [facility]; he had been there previously for rehab, and had been in discussions with director athletic about moving in, but had put it off. But he feels that he has to give up his home now although he does not want to. He notes some difficulty with urination, which he attributes to being out of Flomax, but he denies any pain or during with urination. He has some cough that started today, but denies fever, headaches, dyspnea, sore throat, abdominal pain, nausea. His other main complaint is the neuropathy in his hands and legs, which is bothering him severely. - Review of Systems Respiratory: Cough Neurological: Sensory Changes All Other Systems: Reviewed and Negative Medications & Allergies Home Medications: Home Medication List Tamsulosin HCl [Flomax] 0.4 mg PO HS 03/31/16 [History Confirmed 11/01/24] Olanzapine 5 mg [zyPREXA 5MG TABLET] 10 mg PO HS 06/09/21 [History Confirmed 11/01/24] Gabapentin 600 mg PO TID 12/09/22 [History Confirmed 11/01/24] Albuterol Sulfate [Proventil Hfa] 2 puff IH QID #1 inhaler 12/10/22 [Rx Confirmed 11/01/24] Allergies/Adverse Reactions: Allergies Allergy/AdvReac Type Severity Reaction Status Date / Time ciprofloxacin [From Cipro] Allergy Intermediate Verified 11/01/24 18:51 ciprofloxacin HCl Allergy Intermediate Verified 11/01/24 18:51 [From Cipro] diltiazem HCl [From Cardizem] Allergy Intermediate Hives Verified 11/01/24 18:51 levofloxacin [From Levaquin] Allergy Intermediate Verified 11/01/24 18:51 sertraline HCl [From Zoloft] Allergy Intermediate Verified 11/01/24 18:51 Sulfa (Sulfonamide Allergy Intermediate Hives Verified 11/01/24 18:51 Antibiotics) [Sulfa(Sulfonamide Antibiotics)] sulfamethoxazole Allergy Intermediate Hives Verified 11/01/24 18:51 [From Bactrim] trimethoprim [From Bactrim] Allergy Intermediate Hives Verified 11/01/24 18:51 paroxetine [From Paxil] Allergy Verified 11/01/24 18:51 zolpidem tartrate AdvReac Intermediate Verified 11/01/24 18:51 [From Ambien] - Past Medical History Past Medical History: Yes Neurological History: No Pertinent History ENT History: No Pertinent History Cardiac History: Deep Vein Thrombosis, Hypertension, Myocardial Infarction (ID) Respiratory History: COPD, Emphysema, Pulmonary Embolism Endocrine Medical History: No Pertinent History Musculoskelatal History: Degenerative Disk Disease GI Medical History: No Pertinent History History: Bladder Cancer Pyscho-Social History: Anxiety, Attention Deficit Disorder, Bipolar, Depression Male Reproductive Disorders: No Pertinent History Comment: refuses home o2 - Past Surgical History Past Surgical History: Yes Neuro Surgical History: No Pertinent History Cardiac History: No Pertinent History Respiratory Surgery: No Pertinent History GI Surgical History: Hernia Repair Genitourinary Surgical Hx: Other Musculskeletal Surgical Hx: Joint Replacement Male Surgical History: Other Other Surgical History: 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 REPLACEMENT Significant Family History: diabetes - Social History Smoking Status: Current every day smoker How long have you smoked: years Exposure to second hand smoke: Yes Alcohol: None Drug Use: marijuana - Social Determinants of Health Will the patient participate in the screening: Yes Do you worry about a steady place to live?: No Do you have any problems with any of the following?: Lack of heat, Oven/Stove not working, Inadequate lighting In the past 12 months,have you had to go without utilities?: Yes Have you or anyone in your house had to go without enough: Yes Transportation Issues: Yes Has anyone in your support network made you feel unsafe?: No - Physical Exam Vital Signs: Vital Signs - 24 hr Temp Pulse Resp BP BP Pulse Ox 11/01/24 22:01 85/70 95 11/01/24 21:31 95 11/01/24 21:30 76 121/85 94 L 11/01/24 21:01 87 130/82 95 11/01/24 20:30 88 107/75 94 L 11/01/24 20:00 81 108/79 95 11/01/24 19:31 67 119/80 95 11/01/24 19:00 132/82 95 11/01/24 18:53 100.4 F 76 18 131/93 95 11/01/24 18:46 131/93 95 GEN: Lying in bed in no acute distress. HENT: Normocephalic, atraumatic. Moist mucous membranes. EYES: Normal inspection, anicteric sclera, extraocular movements intact. NECK: Supple, full range of motion CV: Regular rate and rhythm, no murmurs, no gallops. No JVD or edema. PULM: Clear to auscultation bilaterally, no work of breathing. On room air. ABD: Nondistended, nontender. MSK: No joint effusions, full range of motion SKIN: No rashes, normal color. NEURO: Face symmetric, no focal motor or sensory deficits. PSYCH: Alert, oriented x 3 Results - Labs Lab/Micro Results: Lab Results-Last 24 Hours 11/01/24 11/01/24 11/01/24 Range/Units 19:45 19:45 20:57 WBC 7.8 (4.23-9.07) x10^3/uL RBC 5.37 (4.63-6.08) x10^6/uL Hgb 16.6 (13.7-17.5) g/dL Hct 48.2 (40.1-51.0) % MCV 89.8 (79.0-92.2) fL MCH 30.9 (25.7-32.2) pg MCHC 34.4 (32.3-36.5) g/dL RDW 12.8 (11.6-14.4) % Plt Count 267 (163-337) x10^3/uL MPV 9.3 L (9.4-12.4) fL Gran % 70.3 H (34.0-67.9) % Immature Gran % (Auto) 0.4 (0.001-0.429) % Nucleat RBC Rel Count 0.0 (0.00-0.2) % Eos # (Auto) 0.28 (0.04-0.54) x10^3/uL Immature Gran # (Auto) 0.03 (0.001-0.031) x10^3u/L Absolute Lymphs (auto) 1.24 L (1.32-3.57) x10^3/uL Absolute Monos (auto) 0.72 (0.30-0.82) x10^3/uL Absolute Nucleated RBC 0.00 (0.00-0.012) x10^3u/L Lymphocytes % 15.9 L (21.8-53.1) % Monocytes % 9.2 (5.3-12.2) % Eosinophils % 3.6 (0.8-7.0) % Basophils % 0.6 (0.2-1.2) % Absolute Granulocytes 5.49 H (1.78-5.38) x10^3/uL Basophils # 0.05 (0.01-0.08) x10^3/uL Sodium 137 (135-145) mmol/L Potassium 4.2 (3.5-5.1) mmol/L Chloride 105 (98-107) mmol/L Carbon Dioxide 22 (22-30) mmol/L Anion Gap 14.7 (5-15) MEQ/L BUN 8 L (9-20) mg/dL Creatinine 0.67 (0.66-1.25) mg/dL Estimated GFR 102.3 ML/MIN Glucose 117 H (74-106) mg/dL Calcium 10.1 (8.4-10.2) mg/dL Total Bilirubin 0.30 (0.2-1.3) mg/dL AST 26 (17-59) U/L ALT 21 (0-50) U/L Alkaline Phosphatase 57 (38-126) U/L Serum Total Protein 7.4 (6.3-8.2) g/dL Albumin 4.4 (3.5-5.0) g/dL Urine Color Yellow (Yellow) Urine Appearance Clear (Clear) Urine pH 6.5 (4.6-8.0) Ur Specific [place] <=1.005 (1.005-1.030) Urine Protein Negative (Negative) Urine Glucose (UA) Negative (Negative) mg/dL Urine Ketones Negative (Negative) Urine Blood Negative (Negative) Urine Nitrite Negative (Negative) Urine Bilirubin Negative (Negative) Urine Urobilinogen 0.2 (0.2) mg/dL Ur Leukocyte Esterase Moderate A (Negative) U Hyaline Cast (Auto) NONE SEEN (0-2) /LPF Urine Microscopic RBC 0-2 (0-5) /HPF Urine Microscopic WBC 21-50 A (0-5) /HPF Ur Epithelial Cells None Seen (None Seen) /HPF Urine Bacteria None Seen (None Seen) /HPF Urine Culture Reflexed YES (NO) - Radiology Impressions Radiology Exams & Impressions: Radiology Procedures Category Date Time Status CHEST 1 VIEW (PORTABLE) Stat Exams 11/01/24 19:26 Taken Chest x-ray bibasilar atelectasis. Unfortunately, x-ray is improperly positioned and the bottom of the lung anderson are cut off, including the costophrenic angles. However, no visualized consolidations or pneumothorax. (Images personally reviewed) Assessment/Plan (1) Failure to thrive Current Visit: Yes Status: Acute Qualifiers: Failure to thrive age range: in adult Qualified Code(s): R62.7 - Adult failure to thrive Assessment & Plan: 69-year-old man with history of VTE, HTN, PTSD, BPH, COPD, and polysubstance abuse, who presents with failure to thrive and lack of appropriate home environment. ## Failure to thrive patient no longer able to care for himself at home, and he lives alone. Unable to maintain a safe home environment, unable to keep his heater in working order. Patient has had prior discussions with [facility] about residential status, and he is now willing to pursue that. Consult keycase assembler in the morning for [place] [facility] placement ## Possible acute cystitis patient has pyuria on UA. However, he does not seem to have any dysuria. He does have urinary frequency, which she attributes to being out of his Flomax. I reviewed the last 3 times the patient has had pyuria on labs here at [place]; on each of those occasions, his urine cultures either showed no growth or showed only skin wesley. He was initially ordered Bactrim in the ED, but he has an allergy to sulfa. Start Keflex 500 mg p.o. 4 times a day Follow-up urine culture Low threshold to stop antibiotics if no clear evidence of infection ## History of DVT/PE patient's home medication list is not clear. At 1 point, he was on Eliquis 5 BID, but he has been out of his medications for at least a month. Monitor for now, but will not start his Eliquis ## BPH patient was able to member the name of his Flomax medication, and he does describe lower urinary tract symptoms. Restart Flomax 0.4 mg QHS ## PTSD/anxiety patient states he was on his medication for this indication until 2 days ago, but he was unable to recall the name. Of his last discharge medication list, the most likely medication with his olanzapine. Reorder olanzapine 10 mg p.o. QHS ## Peripheral neuropathy in actuality, the patient's main complaint. It appears he has been out of this medication as well for over a month. Given that he has washed out of the medication, will restart gabapentin at a lower dose. His last recorded dose was 600 mg TID. Start gabapentin at 3 mg p.o. TID CODE STATUS: Full code Diet: Regular Prophylaxis: Encourage ambulation Dispo: Place in observation for now, needs to meet with keycase assembler for placement needs Entirety of encounter took place via live audio/video telemedicine device, with remote physician, and patient in hospital, with the assistance of nurse at bedside. Code(s): [id number] - Telemedicine Encounter - Telemedicine Encounter Telemedicine Encounter: "The entirety of this encounter was performed via Telemedicine" This visit was performed using real-time audio and video connection between my location and thepatients locationwith the assistance of a surrogateat the patients location. Written or verbal consent was obtained from the patient/guardian to perform this visit [facility] technology. Any patient questions regarding the telemedicine interaction were answered.
[2024-11-01] MEDS ORDERED: zyPREXA 5MG TABLET ONE (23:28)
[2024-11-01] MEDS ORDERED: Flomax 0.4 MG ONE (23:29)
[2024-11-01] MEDS: NEURONTIN PO SCH (23:30)
[2024-11-01] MEDS: zyPREXA 5MG TABLET PO SCH (23:30)
[2024-11-01] MEDS: KEFLEX 500 MG PO SCH (23:30)
[2024-11-01] MEDS: Flomax 0.4 MG PO SCH (23:30)
[2024-11-01] MEDS: TYLENOL 325 MG PO PRN (23:30)
[2024-11-01] MEDS: BACTRIM DS TABLET PO SCH (23:37)
[2024-11-02] MEDS: VENTOLIN COMMON CANISTER IH PRN (00:22)
[2024-11-02 05:10] LABS: Hemoglobin 16.1 g/dL (13.7-17.5); Mean Cell Volume 92.1 fL (79.0-92.2); Mean Corpuscular Hemoglobin 30.3 pg (25.7-32.2); Mean Corpuscular Hgb Concent. 32.9 g/dL (32.3-36.5); Mean Platelet Volume 9.7 fL (9.4-12.4); Platelet Count 268 x10^3/uL (163-337); Red Blood Count 5.32 x10^6/uL (4.63-6.08); Red Cell Distribution Width 13.2 % (11.6-14.4)
[2024-11-02 05:44] LABS: ANION GAP 11.5 MEQ/L (5-15); Calcium 9.5 mg/dL (8.4-10.2); Creatinine 1 0.8 mg/dL (0.66-1.25); Potassium 3.9 mmol/L (3.5-5.1)
--- NOTE | 2024-11-02 08:43 | XRAY ---
Indication: Fatigue. Comparison: December 09, 2022 Portable chest again hyperinflated with chronic lung markings. No focal infiltrate, consolidation, or large effusion. Heart not enlarged. Bony thorax intact again with mild degenerative changes. No new/acute findings.
--- NOTE | 2024-11-02 09:53 | PCM.NOTE ---
Date and Time: 11/02/24 3244 Subjective Assessment: is a 69 year old male with h/o HTN, VTE, BPH, COPD, and peripheral neuropathy, who presents with failure to thrive. Patient states that he lives alone but has become more and more unable to care for himself. His propane heater broke last night and he is unable to fix it, and his home is too cold to live in. And per ED physician, may also be being evicted from his home. He also notes that he has been out of all of his medications for some time because he was unable to get to the doctor or get refills, except for the one that helps with his PTSD and anxiety, which ran out two days ago. He otherwise does not recall his past history or medications. Patient states he is finally ready to give up his home. He had previously spoke to [facility]; he had been there previously for rehab, and had been in discussions with director of patient financial services about moving in, but had put it off. But he feels that he has to give up his home now although he does not want to. He notes some difficulty with urination, which he attributes to being out of Flomax, but he denies any pain or during with urination. He has some cough that started today, but denies fever, headaches, dyspnea, sore throat, abdominal pain, nausea. His other main complaint is the neuropathy in his hands and legs, which is bothering him severely. Keflex started for UTI and urine culture pending. Discussed pt case with case management. Someone from [facility] will be coming to speak with pt today. He denies any further concerns at this time. - Review of Systems Constitutional: No Fever, No Chills Eyes: No Symptoms Ears, Nose, & Throat: No Symptoms Respiratory: No Cough, No Short Of Breath Cardiac: No Chest Pain, No Edema, No Syncope Abdominal/Gastrointestinal: No Abdominal Pain, No Nausea, No Vomiting, No Diarrhea Genitourinary Symptoms: Dysuria, Urinary Retention Musculoskeletal: No Back Pain, No Neck Pain Skin: No Rash Neurological: No Dizziness, No Focal Weakness, No Sensory Changes Psychological: No Symptoms Endocrine: No Symptoms Hematologic/Lymphatic: No Symptoms Immunological/Allergic: No Symptoms Objective Exam General Appearance: no apparent distress, alert Neurologic Exam: alert, oriented x 3, cooperative, normal mood/affect, nml cerebellar function, sensation nml, No motor deficits Skin Exam: normal color, warm, dry Eye Exam: PERRL, EOMI, eyes nml inspection Ears, Nose, Throat Exam: normal ENT inspection, pharynx normal, moist mucous membranes Neck Exam: normal inspection, non-tender, supple, full range of motion Respiratory Exam: normal breath sounds, lungs clear, No respiratory distress Cardiovascular Exam: regular rate/rhythm, normal heart sounds Gastrointestinal/Abdomen Exam: soft, No tenderness, No mass Extremity Exam: normal inspection, normal range of motion Back Exam: normal inspection, normal range of motion, No CVA tenderness, No vertebral tenderness Male Genitalia Exam: deferred Rectal Exam: deferred Objective Data Vital Signs: Vital Signs - 24 hr Temp Pulse Resp BP BP Pulse Ox 11/02/24 07:49 97.5 F 75 16 84/53 90 L 11/02/24 06:37 60 18 90 L 11/02/24 04:00 97.5 F 72 20 90/50 95 11/02/24 00:23 82 16 93 L 11/01/24 22:25 97.8 F 77 22 122/67 96 11/01/24 22:01 85/70 95 11/01/24 21:31 95 11/01/24 21:30 76 121/85 94 L 11/01/24 21:01 87 130/82 95 11/01/24 20:30 88 107/75 94 L 11/01/24 20:00 81 108/79 95 11/01/24 19:31 67 119/80 95 11/01/24 19:00 132/82 95 11/01/24 18:53 100.4 F 76 18 131/93 95 11/01/24 18:46 131/93 95 Pain Assessment - Last Documented Pain Intensity 0 Pain Scale Used 0-10 Pain Scale Intake and Output: Intake & Output 10/30/24 10/31/24 11/01/24 11/02/24 11:59 11:59 11:59 11:59 Intake Total 1280 Balance 1280 Weight 71.6 kg Lab Results: Lab Results-Last 24 Hours 11/01/24 11/01/24 11/01/24 Range/Units 19:45 19:45 20:57 WBC 7.8 (4.23-9.07) x10^3/uL RBC 5.37 (4.63-6.08) x10^6/uL Hgb 16.6 (13.7-17.5) g/dL Hct 48.2 (40.1-51.0) % MCV 89.8 (79.0-92.2) fL MCH 30.9 (25.7-32.2) pg MCHC 34.4 (32.3-36.5) g/dL RDW 12.8 (11.6-14.4) % Plt Count 267 (163-337) x10^3/uL MPV 9.3 L (9.4-12.4) fL Gran % 70.3 H (34.0-67.9) % Immature Gran % (Auto) 0.4 (0.001-0.429) % Nucleat RBC Rel Count 0.0 (0.00-0.2) % Eos # (Auto) 0.28 (0.04-0.54) x10^3/uL Immature Gran # (Auto) 0.03 (0.001-0.031) x10^3u/L Absolute Lymphs (auto) 1.24 L (1.32-3.57) x10^3/uL Absolute Monos (auto) 0.72 (0.30-0.82) x10^3/uL Absolute Nucleated RBC 0.00 (0.00-0.012) x10^3u/L Lymphocytes % 15.9 L (21.8-53.1) % Monocytes % 9.2 (5.3-12.2) % Eosinophils % 3.6 (0.8-7.0) % Basophils % 0.6 (0.2-1.2) % Absolute Granulocytes 5.49 H (1.78-5.38) x10^3/uL Basophils # 0.05 (0.01-0.08) x10^3/uL Sodium 137 (135-145) mmol/L Potassium 4.2 (3.5-5.1) mmol/L Chloride 105 (98-107) mmol/L Carbon Dioxide 22 (22-30) mmol/L Anion Gap 14.7 (5-15) MEQ/L BUN 8 L (9-20) mg/dL Creatinine 0.67 (0.66-1.25) mg/dL Estimated GFR 102.3 ML/MIN Glucose 117 H (74-106) mg/dL Calcium 10.1 (8.4-10.2) mg/dL Total Bilirubin 0.30 (0.2-1.3) mg/dL AST 26 (17-59) U/L ALT 21 (0-50) U/L Alkaline Phosphatase 57 (38-126) U/L Serum Total Protein 7.4 (6.3-8.2) g/dL Albumin 4.4 (3.5-5.0) g/dL Urine Color Yellow (Yellow) Urine Appearance Clear (Clear) Urine pH 6.5 (4.6-8.0) Ur Specific [place] <=1.005 (1.005-1.030) Urine Protein Negative (Negative) Urine Glucose (UA) Negative (Negative) mg/dL Urine Ketones Negative (Negative) Urine Blood Negative (Negative) Urine Nitrite Negative (Negative) Urine Bilirubin Negative (Negative) Urine Urobilinogen 0.2 (0.2) mg/dL Ur Leukocyte Esterase Moderate A (Negative) U Hyaline Cast (Auto) NONE SEEN (0-2) /LPF Urine Microscopic RBC 0-2 (0-5) /HPF Urine Microscopic WBC 21-50 A (0-5) /HPF Ur Epithelial Cells None Seen (None Seen) /HPF Urine Bacteria None Seen (None Seen) /HPF Urine Culture Reflexed YES (NO) 11/02/24 11/02/24 Range/Units 04:50 04:50 WBC 7.0 (4.23-9.07) x10^3/uL RBC 5.32 (4.63-6.08) x10^6/uL Hgb 16.1 (13.7-17.5) g/dL Hct 49.0 (40.1-51.0) % MCV 92.1 (79.0-92.2) fL MCH 30.3 (25.7-32.2) pg MCHC 32.9 (32.3-36.5) g/dL RDW 13.2 (11.6-14.4) % Plt Count 268 (163-337) x10^3/uL MPV 9.7 (9.4-12.4) fL Gran % (34.0-67.9) % Immature Gran % (Auto) (0.001-0.429) % Nucleat RBC Rel Count (0.00-0.2) % Eos # (Auto) (0.04-0.54) x10^3/uL Immature Gran # (Auto) (0.001-0.031) x10^3u/L Absolute Lymphs (auto) (1.32-3.57) x10^3/uL Absolute Monos (auto) (0.30-0.82) x10^3/uL Absolute Nucleated RBC (0.00-0.012) x10^3u/L Lymphocytes % (21.8-53.1) % Monocytes % (5.3-12.2) % Eosinophils % (0.8-7.0) % Basophils % (0.2-1.2) % Absolute Granulocytes (1.78-5.38) x10^3/uL Basophils # (0.01-0.08) x10^3/uL Sodium 138 (135-145) mmol/L Potassium 3.9 (3.5-5.1) mmol/L Chloride 107 (98-107) mmol/L Carbon Dioxide 24 (22-30) mmol/L Anion Gap 11.5 (5-15) MEQ/L BUN 8 L (9-20) mg/dL Creatinine 0.80 (0.66-1.25) mg/dL Estimated GFR 97.0 ML/MIN Glucose 114 H (74-106) mg/dL Calcium 9.5 (8.4-10.2) mg/dL Total Bilirubin (0.2-1.3) mg/dL AST (17-59) U/L ALT (0-50) U/L Alkaline Phosphatase (38-126) U/L Serum Total Protein (6.3-8.2) g/dL Albumin (3.5-5.0) g/dL Urine Color (Yellow) Urine Appearance (Clear) Urine pH (4.6-8.0) Ur Specific [place] (1.005-1.030) Urine Protein (Negative) Urine Glucose (UA) (Negative) mg/dL Urine Ketones (Negative) Urine Blood (Negative) Urine Nitrite (Negative) Urine Bilirubin (Negative) Urine Urobilinogen (0.2) mg/dL Ur Leukocyte Esterase (Negative) U Hyaline Cast (Auto) (0-2) /LPF Urine Microscopic RBC (0-5) /HPF Urine Microscopic WBC (0-5) /HPF Ur Epithelial Cells (None Seen) /HPF Urine Bacteria (None Seen) /HPF Urine Culture Reflexed (NO) Radiology Exams: Radiology Procedures Category Date Time Status CHEST 1 VIEW (PORTABLE) Stat Exams 11/01/24 19:26 Completed Assessment/Plan (1) Acute UTI (urinary tract infection) Current Visit: Yes Status: Acute Assessment & Plan: - Keflex IV - UC pending Code(s): N39.0 - URINARY TRACT INFECTION, SITE NOT SPECIFIED (2) Failure to thrive Current Visit: Yes Status: Acute Qualifiers: Failure to thrive age range: in adult Qualified Code(s): R62.7 - Adult fa ilure to thrive Assessment & Plan: patient no longer able to care for himself at home, and he lives alone. Unable to maintain a safe home environment, unable to keep his heater in working order. Patient has had prior discussions with [facility] about residential status, and he is now willing to pursue that. Consulted case management this morning for assisted placement. Code(s): [id number] - (3) Peripheral neuropathy Current Visit: Yes Status: Chronic Assessment & Plan: in actuality, the patient's main complaint. It appears he has been out of this medication as well for over a month. Given that he has washed out of the medic ation, will restart gabapentin at a lower dose. His last recorded dose was 600 mg TID. Start gabapentin at 3 mg p.o. TID - Pt eval and treat - + foot drop Code(s): G62.9 - POLYNEUROPATHY, UNSPECIFIED (4) PTSD (post-traumatic stress disorder) Current Visit: Yes Status: Chronic Assessment & Plan: - patient states he was on his medication for this indication until 2 days ago, but he was unable to recall the name. Of his last discharge medication list, the most likely medication with his olanzapine. Reorder olanzapine 10 mg p.o. QHS Code(s): F43.10 - POST-TRAUMATIC STRESS DISORDER, UNSPECIFIED (5) Anxiety Current Visit: Yes Status: Chronic Assessment & Plan: - continue home meds - anxiety 2:2 situation Code(s): F41.9 - ANXIETY DISORDER, UNSPECIFIED (6) Hx of deep venous thrombosis Current Visit: Yes Status: Chronic Assessment & Plan: patient's home medication list is not clear. At 1 point, he was on Eliquis 5 BID, but he has been out of his medications for at least a month. Monitor for now, but will not start his Eliquis Code(s): Z86.718 - PERSONAL HISTORY OF OTHER VENOUS THROMBOSIS AND EMBOLISM (7) Substance abuse Current Visit: Yes Status: Chronic Assessment & Plan: - Hx of meth and THC use Code(s): F19.10 - OTHER PSYCHOACTIVE SUBSTANCE ABUSE, UNCOMPLICATED (8) BPH (benign prostatic hyperplasia) Current Visit: Yes Status: Chronic Assessment & Plan: Restart Flomax 0.4 mg QHS VTE: SCD's Next of KIN: none D/C plan: pending placement Code status: Full Code(s): N40.0 - BENIGN PROSTATIC HYPERPLASIA WITHOUT LOWER URINRY TRACT SYMP
[2024-11-02] MEDS ORDERED: ELIQUIS 2.5 MG TABLET PO SCH (10:00)
[2024-11-02] MEDS ORDERED: NON-FORMULARY ITEM (Apixaban [Eliquis] 5 MG Tab.Ds.Pk) PO SCH (10:00)
[2024-11-02] MEDS ORDERED: NON-FORMULARY ITEM (Gabapentin [Gabapentin] 600 MG Tablet) PO SCH (10:00)
[2024-11-02 11:07] LABS: INFLUENZA A NEGATIVE (NEGATIVE); INFLUENZA B NEGATIVE (NEGATIVE); RESPIRATORY SYNCTIAL VIRUS NEGATIVE (NEGATIVE); SARS-CoV-2 Xpert Express NEGATIVE (NEGATIVE)
[2024-11-02] MEDS ORDERED: Mirapex 0.5 MG Tablet PO SCH (22:00)
[2024-11-02] MEDS ORDERED: PRAMIPEXOLE DI HCL 0.75 MG PO SCH (22:00)
[2024-11-02] MEDS ORDERED: ISOPTIN SR PO SCH (22:00)
[2024-11-03 05:35] LABS: Hemoglobin 15.4 g/dL (13.7-17.5); Mean Cell Volume 93.6 fL (79.0-92.2); Mean Corpuscular Hemoglobin 30.7 pg (25.7-32.2); Mean Corpuscular Hgb Concent. 32.8 g/dL (32.3-36.5); Mean Platelet Volume 9.8 fL (9.4-12.4); Platelet Count 237 x10^3/uL (163-337); Red Blood Count 5.02 x10^6/uL (4.63-6.08); Red Cell Distribution Width 13.4 % (11.6-14.4)
[2024-11-03 06:01] LABS: ALBUMIN 3.6 g/dL (3.5-5.0); ANION GAP 10.7 MEQ/L (5-15); BILIRUBIN,TOTAL 0.4 mg/dL (0.2-1.3); Calcium 8.7 mg/dL (8.4-10.2); Creatinine 1 0.76 mg/dL (0.66-1.25); EST GLOMERULAR FILTRATION RATE 98.5 ML/MIN; Total Protein 6.4 g/dL (6.3-8.2)
--- NOTE | 2024-11-03 09:53 | PCM.NOTE ---
Date and Time: 11/03/24 0949 Subjective Assessment: 11/02/24 is a 69 year old male with h/o HTN, VTE, BPH, COPD, and peripheral neuropathy, who presents with failure to thrive. Patient states that he lives alone but has become more and more unable to care for himself. His propane heater broke last night and he is unable to fix it, and his home is too cold to live in. And per ED physician, may also be being evicted from his home. He also notes that he has been out of all of his medications for some time because he was unable to get to the doctor or get refills, except for the one that helps with his PTSD and anxiety, which ran out two days ago. He otherwise does not recall his past history or medications. Patient states he is finally ready to give up his home. He had previously spoke to [facility]; he had been there previously for rehab, and had been in discussions with hospitalist program director about moving in, but had put it off. But he feels that he has to give up his home now although he does not want to. He notes some difficulty with urination, which he attributes to being out of Flomax, but he denies any pain or during with urination. He has some cough that started today, but denies fever, headaches, dyspnea, sore throat, abdominal pain, nausea. His other main complaint is the neuropathy in his hands and legs, which is bothering him severely. Keflex started for UTI and urine culture pending. Discussed pt case with case management. Someone from [facility] will be coming to speak with pt today. He denies any further concerns at this time. 11/03/24 Pt resting in bed. He ate well this morning. He was able to take a shower with assistance yesterday. Antibiotic stopped as UC negaive for infection. He is pending placement at [facility]. He has to have a level 2 eval per case management prior to d/c. This is pending. He denies any further concerns at this time. - Review of Systems Constitutional: No Fever, No Chills Eyes: No Symptoms Ears, Nose, & Throat: No Symptoms Respiratory: No Cough, No Short Of Breath Cardiac: No Chest Pain, No Edema, No Syncope Abdominal/Gastrointestinal: No Abdominal Pain, No Nausea, No Vomiting, No Diarrhea Genitourinary Symptoms: No Dysuria Musculoskeletal: No Back Pain, No Neck Pain Skin: No Rash Neurological: No Dizziness, No Focal Weakness, No Sensory Changes Psychological: No Symptoms Endocrine: No Symptoms Hematologic/Lymphatic: No Symptoms Immunological/Allergic: No Symptoms Objective Exam General Appearance: no apparent distress, alert Neurologic Exam: alert, oriented x 3, cooperative, normal mood/affect, nml cerebellar function, sensation nml, No motor deficits Skin Exam: normal color, warm, dry Eye Exam: PERRL, EOMI, eyes nml inspection Ears, Nose, Throat Exam: normal ENT inspection, pharynx normal, moist mucous membranes Neck Exam: normal inspection, non-tender, supple, full range of motion Respiratory Exam: normal breath sounds, lungs clear, No respiratory distress Cardiovascular Exam: regular rate/rhythm, normal heart sounds Gastrointestinal/Abdomen Exam: soft, No tenderness, No mass Extremity Exam: normal inspection, normal range of motion Back Exam: normal inspection, normal range of motion, No CVA tenderness, No vertebral tenderness Male Genitalia Exam: deferred Rectal Exam: deferred Objective Data Vital Signs: Vital Signs - 24 hr Temp Pulse Resp BP Pulse Ox 11/03/24 07:12 97.9 F 69 16 91/51 92 L 11/03/24 06:52 80 16 92 L 11/03/24 04:00 97.1 F 79 14 84/52 93 L 11/02/24 23:37 98.1 F 70 16 89/51 90 L 11/02/24 20:22 84 16 85 L 11/02/24 20:00 97.8 F 87 18 90/51 94 L 11/02/24 16:00 97.8 F 85 16 103/62 93 L 11/02/24 12:00 97.7 F 86 16 89/52 92 L Pain Assessment - Last Documented Pain Intensity 0 Pain Scale Used 0-10 Pain Scale Intake and Output: Intake & Output 10/31/24 11/01/24 11/02/24 11/03/24 11:59 11:59 11:59 11:59 Intake Total 1280 1660 Balance 1280 1660 Weight 71.6 kg 72 kg Lab Results: Lab Results-Last 24 Hours 11/02/24 11/03/24 11/03/24 Range/Units 10:04 04:18 04:18 WBC 7.0 (4.23-9.07) x10^3/uL RBC 5.02 (4.63-6.08) x10^6/uL Hgb 15.4 (13.7-17.5) g/dL Hct 47.0 (40.1-51.0) % MCV 93.6 H (79.0-92.2) fL MCH 30.7 (25.7-32.2) pg MCHC 32.8 (32.3-36.5) g/dL RDW 13.4 (11.6-14.4) % Plt Count 237 (163-337) x10^3/uL MPV 9.8 (9.4-12.4) fL Sodium 138 (135-145) mmol/L Potassium 4.0 (3.5-5.1) mmol/L Chloride 107 (98-107) mmol/L Carbon Dioxide 25 (22-30) mmol/L Anion Gap 10.7 (5-15) MEQ/L BUN 21 H (9-20) mg/dL Creatinine 0.76 (0.66-1.25) mg/dL Estimated GFR 98.5 ML/MIN Glucose 97 (74-106) mg/dL Calcium 8.7 (8.4-10.2) mg/dL Total Bilirubin 0.40 (0.2-1.3) mg/dL AST 20 (17-59) U/L ALT 16 (0-50) U/L Alkaline Phosphatase 48 (38-126) U/L Serum Total Protein 6.4 (6.3-8.2) g/dL Albumin 3.6 (3.5-5.0) g/dL Influenza Type A Ag NEGATIVE (NEGATIVE) Influenza Type B Ag NEGATIVE (NEGATIVE) RSV (PCR) NEGATIVE (NEGATIVE) SARS-CoV-2 (PCR) NEGATIVE (NEGATIVE) Radiology Exams: Radiology Procedures Category Date Time Status CHEST 1 VIEW (PORTABLE) Stat Exams 11/01/24 19:26 Completed Multi-Disciplinary Progress Notes: Multi-Disciplinary Progress Notes 11/02/24 20:26 Respiratory Note by Evon Gallo SpO2 85% on room air, O2 applied @ 2lpm nasal cannula. Will continue to monitor. Initialized on 11/02/24 20:26 - END OF NOTE 11/02/24 14:03 Case Management Note by Rocio Fry PASRR AND LOC STARTED- TRIGGERED LEVEL II- THIS MUST BE COMPLETE BEFORE PATIENT CAN TRANSITION [facility] HAS ACCEPTED AND WILL CHECK HIS BENEFITS Initialized on 11/02/24 14:03 - END OF NOTE Assessment/Plan (1) Acute UTI (urinary tract infection) Current Visit: Yes Status: Acute Code(s): N39.0 - URINARY TRACT INFECTION, SITE NOT SPECIFIED (2) Failure to thrive Current Visit: Yes Status: Acute Qualifiers: Failure to thrive age range: in adult Qualified Code(s): R62.7 - Adult failure to thrive Code(s): [id number] - (3) Peripheral neuropathy Current Visit: Yes Status: Chronic Code(s): G62.9 - POLYNEUROPATHY, UNSPECIFIED (4) PTSD (post-traumatic stress disorder) Current Visit: Yes Status: Chronic Code(s): F43.10 - POST-TRAUMATIC STRESS DISORDER, UNSPECIFIED (5) Anxiety Current Visit: Yes Status: Chronic Code(s): F41.9 - ANXIETY DISORDER, UNSPECIFIED (6) Hx of deep venous thrombosis Current Visit: Yes Status: Chronic Code(s): Z86.718 - PERSONAL HISTORY OF OTHER VENOUS THROMBOSIS AND EMBOLISM (7) Substance abuse Current Visit: Yes Status: Chronic Code(s): F19.10 - OTHER PSYCHOACTIVE SUBSTANCE ABUSE, UNCOMPLICATED (8) BPH (benign prostatic hyperplasia) Current Visit: Yes Status: Chronic Assessment & Plan: (1) Acute UTI (urinary tract infection) Current Visit: Yes Status: Acute Assessment & Plan: - Keflex IV - UC pending11/03 11/03 - UC negative - IV antibiotics stopped - CBC, CMP reviewed Code(s): N39.0 - URINARY TRACT INFECTION, SITE NOT SPECIFIED (2) Failure to thrive Current Visit: Yes Status: Acute Qualifiers: Failure to thrive age range: in adult Qualified Code(s): R62.7 - Adult failure to thrive Assessment & Plan: patient no longer able to care for himself at home, and he lives alone. Unable to maintain a safe home environment, unable to keep his heater in working order. Patient has had prior discussions with [facility] about residential status, and he is now willing to pursue that. Consulted case management this morning for detention placement. - level 2 evaluation pending Code(s): IHG3095 - (3) Peripheral neuropathy Current Visit: Yes Status: Chronic Assessment & Plan: in actuality, the patient's main complaint. It appears he has been out of this medication as well for over a month. Given that he has washed out of the medication, will restart gabapentin at a lower dose. His last recorded dose was 600 mg TID. Start gabapentin at 3 mg p.o. TID - PT eval and treat - + foot drop Code(s): G62.9 - POLYNEUROPATHY, UNSPECIFIED (4) PTSD (post-traumatic stress disorder) Current Visit: Yes Status: Chronic Assessment & Plan: - patient states he was on his medication for this indication until 2 days ago, but he was unable to recall the name. Of his last discharge medication list, the most likely medication with his olanzapine. Reorder olanzapine 10 mg p.o. QHS Code(s): F43.10 - POST-TRAUMATIC STRESS DISORDER, UNSPECIFIED (5) Anxiety Current Visit: Yes Status: Chronic Assessment & Plan: - continue home meds - anxiety 2:2 situation Code(s): F41.9 - ANXIETY DISORDER, UNSPECIFIED (6) Hx of deep venous thrombosis Current Visit: Yes Status: Chronic Assessment & Plan: patient's home medication list is not clear. At 1 point, he was on Eliquis 5 BID, but he has been out of his medications for at least a month. Monitor for now, but will not start his Eliquis Code(s): Z86.718 - PERSONAL HISTORY OF OTHER VENOUS THROMBOSIS AND EMBOLISM (7) Substance abuse Current Visit: Yes Status: Chronic Assessment & Plan: - Hx of meth and THC use Code(s): F19.10 - OTHER PSYCHOACTIVE SUBSTANCE ABUSE, UNCOMPLICATED (8) BPH (benign prostatic hyperplasia) Current Visit: Yes Status: Chronic Assessment & Plan: Restart Flomax 0.4 mg QHS VTE: SCD's Next of KIN: none D/C plan: pending placement and level 2 eval Code status: Full Code(s): N40.0 - BENIGN PROSTATIC HYPERPLASIA WITHOUT LOWER URINRY TRACT SYMP Code(s): N40.0 - BENIGN PROSTATIC HYPERPLASIA WITHOUT LOWER URINRY TRACT SYMP
[2024-11-03] MEDS: Nicoderm CQ 21 MG TOP SCH (16:11)
[2024-11-04 05:38] LABS: Hematocrit 46.5 % (40.1-51.0); Hemoglobin 15.1 g/dL (13.7-17.5); Mean Cell Volume 93.6 fL (79.0-92.2); Mean Corpuscular Hemoglobin 30.4 pg (25.7-32.2); Mean Corpuscular Hgb Concent. 32.5 g/dL (32.3-36.5); Mean Platelet Volume 9.2 fL (9.4-12.4); Platelet Count 218 x10^3/uL (163-337); Red Blood Count 4.97 x10^6/uL (4.63-6.08); Red Cell Distribution Width 13.2 % (11.6-14.4); White Blood Count 5.9 x10^3/uL (4.23-9.07)
[2024-11-04 06:00] LABS: ALBUMIN 3.8 g/dL (3.5-5.0); ANION GAP 10.1 MEQ/L (5-15); BILIRUBIN,TOTAL 0.2 mg/dL (0.2-1.3); Creatinine 1 0.8 mg/dL (0.66-1.25); Potassium 3.8 mmol/L (3.5-5.1); Total Protein 6.6 g/dL (6.3-8.2)
--- NOTE | 2024-11-04 09:29 | PCM.NOTE ---
Date and Time: 11/04/24924 Subjective Assessment: 11/02/24 is a 69 year old male with h/o HTN, VTE, BPH, COPD, and peripheral neuropathy, who presents with failure to thrive. Patient states that he lives alone but has become more and more unable to care for himself. His propane heater broke last night and he is unable to fix it, and his home is too cold to live in. And per ED physician, may also be being evicted from his home. He also notes that he has been out of all of his medications for some time because he was unable to get to the doctor or get refills, except for the one that helps with his PTSD and anxiety, which ran out two days ago. He otherwise does not recall his past history or medications. Patient states he is finally ready to give up his home. He had previously spoke to [facility]; he had been there previously for rehab, and had been in discussions with housing and residence life director about moving in, but had put it off. But he feels that he has to give up his home now although he does not want to. He notes some difficulty with urination, which he attributes to being out of Flomax, but he denies any pain or during with urination. He has some cough that started today, but denies fever, headaches, dyspnea, sore throat, abdominal pain, nausea. His other main complaint is the neuropathy in his hands and legs, which is bothering him severely. Keflex started for UTI and urine culture pending. Discussed pt case with case management. Someone from [facility] will be coming to speak with pt today. He denies any further concerns at this time. 11/03/24 Pt resting in bed. He ate well this morning. He was able to take a shower with assistance yesterday. Antibiotic stopped as UC negaive for infection. He is pending placement at [facility]. He has to have a level 2 eval per case management prior to d/c. This is pending. He denies any further concerns at this time. 11/04/24 Pt resting in bed. State eval completed yesterday. Awaiting results for placement. Pt states his feet hurt but gabapentin helps. He denies CP, SOB, abd. pain, N/V/D. - Review of Systems Constitutional: No Fever, No Chills Eyes: No Symptoms Ears, Nose, & Throat: No Symptoms Respiratory: No Cough, No Short Of Breath Cardiac: No Chest Pain, No Edema, No Syncope Abdominal/Gastrointestinal: No Abdominal Pain, No Nausea, No Vomiting, No Diarrhea Genitourinary Symptoms: No Dysuria Musculoskeletal: No Back Pain, No Neck Pain Skin: No Rash Neurological: Parasthesia, No Dizziness, No Focal Weakness, No Sensory Changes Psychological: No Symptoms Endocrine: No Symptoms Hematologic/Lymphatic: No Symptoms Immunological/Allergic: No Symptoms Objective Exam General Appearance: no apparent distress, alert Neurologic Exam: alert, oriented x 3, cooperative, normal mood/affect, nml cerebellar function, sensation nml, No motor deficits Skin Exam: normal color, warm, dry Eye Exam: PERRL, EOMI, eyes nml inspection Ears, Nose, Throat Exam: normal ENT inspection, pharynx normal, moist mucous membranes Neck Exam: normal inspection, non-tender, supple, full range of motion Respiratory Exam: normal breath sounds, lungs clear, No respiratory distress Cardiovascular Exam: regular rate/rhythm, normal heart sounds Gastrointestinal/Abdomen Exam: soft, No tenderness, No mass Extremity Exam: normal inspection, normal range of motion Back Exam: normal inspection, normal range of motion, No CVA tenderness, No vertebral tenderness Male Genitalia Exam: deferred Rectal Exam: deferred Objective Data Vital Signs: Vital Signs - 24 hr Temp Pulse Resp BP Pulse Ox 11/04/24 07:06 97.8 F 74 16 122/61 94 L 11/04/24 05:45 85 18 94 L 11/04/24 04:00 97.6 F 78 24 119/68 94 L 11/03/24 23:16 97.1 F 75 24 105/54 93 L 11/03/24 20:00 97.8 F 81 20 108/63 92 L 11/03/24 19:10 81 18 92 L 11/03/24 16:00 97.7 F 76 16 105/59 92 L 11/03/24 11:24 98.0 F 82 16 86/50 92 L Pain Assessment - Last Documented Pain Intensity 0 Pain Scale Used 0-10 Pain Scale Intake and Output: Intake & Output 11/01/24 11/02/24 11/03/24 11/04/24 11:59 11:59 11:59 11:59 Intake Total 1280 1660 2740 Output Total 1200 Balance 1280 1660 1540 Weight 71.6 kg 72 kg Lab Results: Lab Results-Last 24 Hours 11/04/24 11/04/24 Range/Units 05:30 05:30 WBC 5.9 (4.23-9.07) x10^3/uL RBC 4.97 (4.63-6.08) x10^6/uL Hgb 15.1 (13.7-17.5) g/dL Hct 46.5 (40.1-51.0) % MCV 93.6 H (79.0-92.2) fL MCH 30.4 (25.7-32.2) pg MCHC 32.5 (32.3-36.5) g/dL RDW 13.2 (11.6-14.4) % Plt Count 218 (163-337) x10^3/uL MPV 9.2 L (9.4-12.4) fL Sodium 139 (135-145) mmol/L Potassium 3.8 (3.5-5.1) mmol/L Chloride 105 (98-107) mmol/L Carbon Dioxide 28 (22-30) mmol/L Anion Gap 10.1 (5-15) MEQ/L BUN 23 H (9-20) mg/dL Creatinine 0.80 (0.66-1.25) mg/dL Estimated GFR 97.0 ML/MIN Glucose 94 (74-106) mg/dL Calcium 9.0 (8.4-10.2) mg/dL Total Bilirubin 0.20 (0.2-1.3) mg/dL AST 21 (17-59) U/L ALT 18 (0-50) U/L Alkaline Phosphatase 49 (38-126) U/L Serum Total Protein 6.6 (6.3-8.2) g/dL Albumin 3.8 (3.5-5.0) g/dL Multi-Disciplinary Progress Notes: Multi-Disciplinary Progress Notes 11/04/24 08:38 Case Management Note by Rocio Fry NO CHANGE IN DC PLANS- LEVEL II STILL PENDING AT THIS TIME Initialized on 11/04/24 08:38 - END OF NOTE 11/03/24 11:35 Case Management Note by Rocio Fry [facility] HAS ACCEPTED PATIENT, INSURANCE READY WELL CAROLYN LAWRENCE WITH [facility] CALLED AND WILL BE HERE THIS EVENING AT 1800 TO DO LEVEL II ASSESSMENT. PRIMARY RN NOTIFIED Initialized on 11/03/24 11:35 - END OF NOTE Assessment/Plan (1) Acute UTI (urinary tract infection) Current Visit: Yes Status: Acute Code(s): N39.0 - URINARY TRACT INFECTION, SITE NOT SPECIFIED (2) Failure to thrive Current Visit: Yes Status: Acute Qualifiers: Failure to thrive age range: in adult Qualified Code(s): R62.7 - Adult failure to thrive Code(s): GFR3512 - (3) Peripheral neuropathy Current Visit: Yes Status: Chronic Code(s): G62.9 - POLYNEUROPATHY, UNSPECIFIED (4) PTSD (post-traumatic stress disorder) Current Visit: Yes Status: Chronic Code(s): F43.10 - POST-TRAUMATIC STRESS DISORDER, UNSPECIFIED (5) Anxiety Current Visit: Yes Status: Chronic Code(s): F41.9 - ANXIETY DISORDER, UNSPECIFIED (6) Hx of deep venous thrombosis Current Visit: Yes Status: Chronic Code(s): Z86.718 - PERSONAL HISTORY OF OTHER VENOUS THROMBOSIS AND EMBOLISM (7) Substance abuse Current Visit: Yes Status: Chronic Code(s): F19.10 - OTHER PSYCHOACTIVE SUBSTANCE ABUSE, UNCOMPLICATED (8) BPH (benign prostatic hyperplasia) Current Visit: Yes Status: Chronic Assessment & Plan: (1) Acute UTI (urinary tract infection) Current Visit: Yes Status: Acute Assessment & Plan: - Keflex IV - UC pending11/03 11/03 - UC negative - IV antibiotics stopped - CBC, CMP reviewed Code(s): N39.0 - URINARY TRACT INFECTION, SITE NOT SPECIFIED (2) Failure to thrive Current Visit: Yes Status: Acute Qualifiers: Failure to thrive age range: in adult Qualified Code(s): R62.7 - Adult failure to thrive Assessment & Plan: patient no longer able to care for himself at home, and he lives alone. Unable to maintain a safe home environment, unable to keep his heater in working order. Patient has had prior discussions with [facility] about residential status, and he is now willing to pursue that. Consulted case management this morning for half-way placement. - level 2 evaluation pending 11/04 - level 2 eval completed on 11/03- pending results for placement Code(s): [id number] - (3) Peripheral neuropathy Current Visit: Yes Status: Chronic Assessment & Plan: in actuality, the patient's main complaint. It appears he has been out of this medication as well for over a month. Given that he has washed out of the medication, will restart gabapentin at a lower dose. His last recorded dose was 600 mg TID. Start gabapentin at 3 mg p.o. TID - PT eval and treat - + foot drop 11/04 - CBC, CMP reviewed Code(s): G62.9 - POLYNEUROPATHY, UNSPECIFIED (4) PTSD (post-traumatic stress disorder) Current Visit: Yes Status: Chronic Assessment & Plan: - patient states he was on his medication for this indication until 2 days ago, but he was unable to recall the name. Of his last discharge medication list, the most likely medication with his olanzapine. Reorder olanzapine 10 mg p.o. QHS Code(s): F43.10 - POST-TRAUMATIC STRESS DISORDER, UNSPECIFIED (5) Anxiety Current Visit: Yes Status: Chronic Assessment & Plan: - continue home meds - anxiety 2:2 situation Code(s): F41.9 - ANXIETY DISORDER, UNSPECIFIED (6) Hx of deep venous thrombosis Current Visit: Yes Status: Chronic Assessment & Plan: patient's home medication list is not clear. At 1 point, he was on Eliquis 5 BID, but he has been out of his medications for at least a month. Monitor for now, but will not start his Eliquis Code(s): Z86.718 - PERSONAL HISTORY OF OTHER VENOUS THROMBOSIS AND EMBOLISM (7) Substance abuse Current Visit: Yes Status: Chronic Assessment & Plan: - Hx of meth and THC use Code(s): F19.10 - OTHER PSYCHOACTIVE SUBSTANCE ABUSE, UNCOMPLICATED (8) BPH (benign prostatic hyperplasia) Current Visit: Yes Status: Chronic Assessment & Plan: Restart Flomax 0.4 mg QHS VTE: SCD's Next of KIN: none D/C plan: pending placement and level 2 eval Code status: Full Code(s): N40.0 - BENIGN PROSTATIC HYPERPLASIA WITHOUT LOWER URINRY TRACT SYMP
--- NOTE | 2024-11-05 11:34 | PCM.NOTE ---
Date and Time: 11/05/24 1128 Subjective Assessment: 11/02/24 is a 69 year old male with h/o HTN, VTE, BPH, COPD, and peripheral neuropathy, who presents with failure to thrive. Patient states that he lives alone but has become more and more unable to care for himself. His propane heater broke last night and he is unable to fix it, and his home is too cold to live in. And per ED physician, may also be being evicted from his home. He also notes that he has been out of all of his medications for some time because he was unable to get to the doctor or get refills, except for the one that helps with his PTSD and anxiety, which ran out two days ago. He otherwise does not recall his past history or medications. Patient states he is finally ready to give up his home. He had previously spoke to [facility]; he had been there previously for rehab, and had been in discussions with director biomedical engineering about moving in, but had put it off. But he feels that he has to give up his home now although he does not want to. He notes some difficulty with urination, which he attributes to being out of Flomax, but he denies any pain or during with urination. He has some cough that started today, but denies fever, headaches, dyspnea, sore throat, abdominal pain, nausea. His other main complaint is the neuropathy in his hands and legs, which is bothering him severely. Keflex started for UTI and urine culture pending. Discussed pt case with case management. Someone from [facility] will be coming to speak with pt today. He denies any further concerns at this time. 11/03/24 Pt resting in bed. He ate well this morning. He was able to take a shower with assistance yesterday. Antibiotic stopped as UC negaive for infection. He is pending placement at [facility]. He has to have a level 2 eval per case management prior to d/c. This is pending. He denies any further concerns at this time. 11/04/24 Pt resting in bed. State eval completed yesterday. Awaiting results for placement. Pt states his feet hurt but gabapentin helps. He denies CP, SOB, abd. pain, N/V/D. 11/05/24 Pt resting in bed. He has no c/o of pain today. He is pending placement. He denies any further concerns at this time. - Review of Systems Constitutional: No Fever, No Chills Eyes: No Symptoms Ears, Nose, & Throat: No Symptoms Respiratory: No Cough, No Short Of Breath Cardiac: No Chest Pain, No Edema, No Syncope Abdominal/Gastrointestinal: No Abdominal Pain, No Nausea, No Vomiting, No Diarrhea Genitourinary Symptoms: No Dysuria Musculoskeletal: No Back Pain, No Neck Pain Skin: No Rash Neurological: No Dizziness, No Focal Weakness, No Sensory Changes Psychological: No Symptoms Endocrine: No Symptoms Hematologic/Lymphatic: No Symptoms Immunological/Allergic: No Symptoms Objective Exam General Appearance: no apparent distress, alert Neurologic Exam: alert, oriented x 3, cooperative, normal mood/affect, nml cerebellar function, sensation nml, No motor deficits Skin Exam: normal color, warm, dry Eye Exam: PERRL, EOMI, eyes nml inspection Ears, Nose, Throat Exam: normal ENT inspection, pharynx normal, moist mucous membranes Neck Exam: normal inspection, non-tender, supple, full range of motion Respiratory Exam: normal breath sounds, lungs clear, No respiratory distress Cardiovascular Exam: regular rate/rhythm, normal heart sounds Gastrointestinal/Abdomen Exam: soft, No tenderness, No mass Extremity Exam: normal inspection, normal range of motion Back Exam: normal inspection, normal range of motion, No CVA tenderness, No vertebral tenderness Male Genitalia Exam: deferred Rectal Exam: deferred Objective Data Vital Signs: Vital Signs - 24 hr Temp Pulse Resp BP Pulse Ox 11/05/24 08:00 97.7 F 77 22 108/62 94 L 11/05/24 05:20 99 H 20 96 11/05/24 04:00 98.0 F 89 22 103/56 92 L 11/05/24 00:00 97.8 F 77 22 130/64 94 L 11/04/24 20:00 97.5 F 77 22 109/58 94 L 11/04/24 16:38 64 16 91 L 11/04/24 16:00 97.6 F 67 16 89/50 93 L 11/04/24 11:55 98.2 F 86 16 94/51 93 L Pain Assessment - Last Documented Pain Intensity 0 Pain Scale Used 0-10 Pain Scale Intake and Output: Intake & Output 0111/03/24 11/04/24 11/05/24 11:59 11:59 11:59 11:59 Intake Total 1280 1660 2740 1720 Output Total 1200 400 Balance 1280 1660 1540 1320 Weight 71.6 kg 72 kg Multi-Disciplinary Progress Notes: Multi-Disciplinary Progress Notes 11/05/24 09:01 Case Management Note by Rocio Fry NO CHANGE IN DC PLANS, LEVEL II STILL PENDING AT THIS TIME Initialized on 11/05/24 09:01 - END OF NOTE Assessment/Plan (1) Acute UTI (urinary tract infection) Current Visit: Yes Status: Acute Code(s): N39.0 - URINARY TRACT INFECTION, SITE NOT SPECIFIED (2) Failure to thrive Current Visit: Yes Status: Acute Qualifiers: Failure to thrive age range: in adult Qualified Code(s): R62.7 - Adult failure to thrive Code(s): [id number] - (3) Peripheral neuropathy Current Visit: Yes Status: Chronic Code(s): G62.9 - POLYNEUROPATHY, UNSPECIFIED (4) PTSD (post-traumatic stress disorder) Current Visit: Yes Status: Chronic Code(s): F43.10 - POST-TRAUMATIC STRESS DISORDER, UNSPECIFIED (5) Anxiety Current Visit: Yes Status: Chronic Code(s): F41.9 - ANXIETY DISORDER, UNSPECIFIED (6) Hx of deep venous thrombosis Current Visit: Yes Status: Chronic Code(s): Z86.718 - PERSONAL HISTORY OF OTHER VENOUS THROMBOSIS AND EMBOLISM (7) Substance abuse Current Visit: Yes Status: Chronic Code(s): F19.10 - OTHER PSYCHOACTIVE SUBSTANCE ABUSE, UNCOMPLICATED (8) BPH (benign prostatic hyperplasia) Current Visit: Yes Status: Chronic Assessment & Plan: (1) Acute UTI (urinary tract infection) Current Visit: Yes Status: Acute Assessment & Plan: - Keflex IV - UC pending11/03 11/03 - UC negative - IV antibiotics stopped - CBC, CMP reviewed Code(s): N39.0 - URINARY TRACT INFECTION, SITE NOT SPECIFIED (2) Failure to thrive Current Visit: Yes Status: Acute Qualifiers: Failure to thrive age range: in adult Qualified Code(s): R62.7 - Adult failure to thrive Assessment & Plan: patient no longer able to care for himself at home, and he lives alone. Unable to maintain a safe home environment, unable to keep his heater in working order. Patient has had prior discussions with [facility] about residential status, and he is now willing to pursue that. Consulted case management this morning for jail placement. - level 2 evaluation pending 11/04 - level 2 eval completed on 11/03- pending results for placement Code(s): [id number] - (3) Peripheral neuropathy Current Visit: Yes Status: Chronic Assessment & Plan: in actuality, the patient's main complaint. It appears he has been out of this medication as well for over a month. Given that he has washed out of the medication, will restart gabapentin at a lower dose. His last recorded dose was 600 mg TID. Start gabapentin at 3 mg p.o. TID - PT eval and treat - + foot drop 11/04 - CBC, CMP reviewed 11/05 - Pain improved Code(s): G62.9 - POLYNEUROPATHY, UNSPECIFIED (4) PTSD (post-traumatic stress disorder) Current Visit: Yes Status: Chronic Assessment & Plan: - patient states he was on his medication for this indication until 2 days ago, but he was unable to recall the name. Of his last discharge medication list, the most likely medication with his olanzapine. Reorder olanzapine 10 mg p.o. QHS Code(s): F43.10 - POST-TRAUMATIC STRESS DISORDER, UNSPECIFIED (5) Anxiety Current Visit: Yes Status: Chronic Assessment & Plan: - continue home meds - anxiety 2:2 situation Code(s): F41.9 - ANXIETY DISORDER, UNSPECIFIED (6) Hx of deep venous thrombosis Current Visit: Yes Status: Chronic Assessment & Plan: patient's home medication list is not clear. At 1 point, he was on Eliquis 5 BID, but he has been out of his medications for at least a month. Monitor for now, but will not start his Eliquis Code(s): Z86.718 - PERSONAL HISTORY OF OTHER VENOUS THROMBOSIS AND EMBOLISM (7) Substance abuse Current Visit: Yes Status: Chronic Assessment & Plan: - Hx of meth and THC use Code(s): F19.10 - OTHER PSYCHOACTIVE SUBSTANCE ABUSE, UNCOMPLICATED (8) BPH (benign prostatic hyperplasia) Current Visit: Yes Status: Chronic Assessment & Plan: Restart Flomax 0.4 mg QHS VTE: SCD's Next of KIN: none D/C plan: pending placement and level 2 eval Code status: Full Code(s): N40.0 - BENIGN PROSTATIC HYPERPLASIA WITHOUT LOWER URINRY TRACT SYMP Code(s): N40.0 - BENIGN PROSTATIC HYPERPLASIA WITHOUT LOWER URINRY TRACT SYMP
[2024-11-06 04:55] VITALS: BP 97/53
[2024-11-06 08:01] VITALS: TEMP 98
[2024-11-06] MEDS: SENOKOT 8.6 MG PO SCH (09:28)
--- NOTE | 2024-11-06 09:35 | PCM.DS ---
Discharge Summary Date of Admission: 11/01/24 22:07 Date of Discharge: 11/06/24 Admitting Physician: KATI CORONADO MD Consults: Consults on Case 11/01/24 19:11 ACO SDOH Referral ONCE 11/01/24 23:04 Case Management SDOH DC Needs Assessment ROUTINE Primary Care Provider: ALEXANDRIA LAWRENCE Allergies Allergies ciprofloxacin [From Cipro] Allergy (Intermediate, Verified 11/01/24 18:51) INFLAMES TENDONS ciprofloxacin HCl [From Cipro] Allergy (Intermediate, Verified 11/01/24 18:51) INFLAMES TENDONS diltiazem HCl [From Cardizem] Allergy (Intermediate, Verified 11/01/24 18:51) Hives EDEMA levofloxacin [From Levaquin] Allergy (Intermediate, Verified 11/01/24 18:51) INFLAMES TENDONS sertraline HCl [From Zoloft] Allergy (Intermediate, Verified 11/01/24 18:51) HIGH HEART RATE Sulfa (Sulfonamide Antibiotics) [Sulfa(Sulfonamide Antibiotics)] Allergy (Int ermediate, Verified 11/01/24 18:51) Hives sulfamethoxazole [From Bactrim] Allergy (Intermediate, Verified 11/01/24 18:51) Hives trimethoprim [From Bactrim] Allergy (Intermediate, Verified 11/01/24 18:51) Hives paroxetine [From Paxil] Allergy (Verified 11/01/24 18:51) zolpidem tartrate [From Ambien] Adverse Reaction (Intermediate, Verified 11/01/24 18:51) "DROGGY ALL DAY LONG" Hospital Summary - Hospital Course Hospital Course: 11/02/24 is a 69 year old male with h/o HTN, VTE, BPH, COPD, and peripheral neuropathy, who presents with failure to thrive. Patient states that he lives alone but has become more and more unable to care for himself. His propane heater broke last night and he is unable to fix it, and his home is too cold to live in. And per ED physician, may also be being evicted from his home. He also notes that he has been out of all of his medications for some time because he was unable to get to the doctor or get refills, except for the one that helps with his PTSD and anxiety, which ran out two days ago. He otherwise does not recall his past history or medications. Patient states he is finally ready to give up his home. He had previously spoke to [facility]; he had been there previously for rehab, and had been in discussions with pathology laboratory director about moving in, but had put it off. But he feels that he has to give up his home now although he does not want to. He notes some difficulty with urination, which he attributes to being out of Flomax, but he denies any pain or during with urination. He has some cough that started today, but denies fever, headaches, dyspnea, sore throat, abdominal pain, nausea. His other main complaint is the neuropathy in his hands and legs, which is bothering him severely. Keflex started for UTI and urine culture pending. Discussed pt case with case management. Someone from [facility] will be coming to speak with pt today. He denies any further concerns at this time. 11/03/24 Pt resting in bed. He ate well this morning. He was able to take a shower with assistance yesterday. Antibiotic stopped as UC negaive for infection. He is pending placement at [facility]. He has to have a level 2 eval per case management prior to d/c. This is pending. He denies any further concerns at this time. 11/04/24 Pt resting in bed. State eval completed yesterday. Awaiting results for placement. Pt states his feet hurt but gabapentin helps. He denies CP, SOB, abd. pain, N/V/D. 11/05/24 Pt resting in bed. He has no c/o of pain today. He is pending placement. He denies any further concerns at this time. 11/06/24 Pt sitting up on the side of the bed. He states he feels like he needs to have a BM and would like a stool softener, Senokot started. He has been approved to d/c to [facility] today. He denies any further concerns at this time. - Vitals & Intake/Output Vital Signs: Vital Signs Temperature 98 F 11/06/24 08:00 Pulse Rate 74 11/06/24 08:00 Respiratory Rate 17 11/06/24 08:00 Blood Pressure 97/53 11/06/24 04:00 O2 Sat by Pulse Oximetry 95 11/06/24 08:00 Intake & Output: Intake & Output 11/03/24 11/04/24 11/05/24 11/06/24 11:59 11:59 11:59 11:59 Intake Total 1660 2740 1720 1700 Output Total 1200 400 300 Balance 1660 1540 1320 1400 Weight 72 kg 76.2 kg - Lab Result Diagrams: 11/04/24 05:30 11/04/24 05:30 Micro Results-Entire Visit: Microbiology 11/01/24 20:57 Urine Culture - Final Clean Catch Midstream NO GROWTH - Procedures and Test Procedures and Tests throughout Hospitalization: Therapy Orders & Screens 11/01/24 23:04 Smoking Cessation Education ONCE Comment: Diagnosis: failure to thrive Smoking Status: Current every day smoker How long have you smoked: years Have you smoked in the past 12 months: Yes Approximately how many cigarettes per day: 0.5 pack per day Do you dip or chew tobacco: No 11/02/24 00:22 Respiratory Therapy Assessment DAILY Comment: Diagnosis: failure to thrive 11/02/24 08:47 PT Eval & Treat (MD Order) ONCE Reason for Eval:: weakness, unable to care for self Diagnosis: failure to thrive 11/02/24 20:31 Oxygen Nasal Cannula 2 lpm Comment: Diagnosis: failure to thrive Discharge Exam General Appearance: no apparent distress, alert Neurologic Exam: alert, oriented x 3, cooperative, normal mood/affect, nml cerebellar function, sensation nml, No motor deficits Eye Exam: PERRL, EOMI, eyes nml inspection Ears, Nose, Throat Exam: normal ENT inspection, pharynx normal, moist mucous membranes Neck Exam: normal inspection, non-tender, supple, full range of motion Respiratory Exam: normal breath sounds, lungs clear, No respiratory distress Cardiovascular Exam: regular rate/rhythm, normal heart sounds Gastrointestinal/Abdomen Exam: soft, No tenderness, No mass Male Genitalia Exam: deferred Rectal Exam: deferred Back Exam: normal inspection, normal range of motion, No CVA tenderness, No vertebral tenderness Extremity Exam: normal inspection, normal range of motion Skin Exam: normal color, warm, dry Final Diagnosis/Problem List - Final Discharge Diagnosis/Problem (1) Acute UTI (urinary tract infection) Current Visit: Yes Status: Acute Code(s): N39.0 - URINARY TRACT INFECTION, SITE NOT SPECIFIED (2) Failure to thrive Current Visit: Yes Status: Acute Code(s): [id number] - (3) Peripheral neuropathy Current Visit: Yes Status: Chronic Code(s): G62.9 - POLYNEUROPATHY, U NSPECIFIED (4) PTSD (post-traumatic stress disorder) Current Visit: Yes Status: Chronic Code(s): F43.10 - POST-TRAUMATIC STRESS DISORDER, UNSPECIFIED (5) Anxiety Current Visit: Yes Status: Chronic Code(s): F41.9 - ANXIETY DISORDER, UNSPECIFIED (6) Hx of deep venous thrombosis Current Visit: Yes Status: Chronic Code(s): Z86.718 - PERSONAL HISTORY OF OTHER VENOUS THROMBOSIS AND EMBOLISM (7) Substance abuse Current Visit: Yes Status: Chronic Code(s): F19.10 - OTHER PSYCHOACTIVE SUBSTANCE ABUSE, UNCOMPLICATED (8) BPH (benign prostatic hyperplasia) Current Visit: Yes Status: Chronic Assessment & Plan: (1) Acute UTI (urinary tract infection) Current Visit: Yes Status: Acute Assessment & Plan: - Keflex IV - UC pending11/03 11/03 - UC negative - IV antibiotics stopped - CBC, CMP reviewed Code(s): N39.0 - URINARY TRACT INFECTION, SITE NOT SPECIFIED (2) Failure to thrive Current Visit: Yes Status: Acute Qualifiers: Failure to thrive age range: in adult Qualified Code(s): R62.7 - Adult failure to thrive Assessment & Plan: patient no longer able to care for himself at home, and he lives alone. Unable to maintain a safe home environment, unable to keep his heater in working order. Patient has had prior discussions with [facility] about residential status, and he is now willing to pursue that. Consulted case management this morning for residential placement. - level 2 evaluation pending 11/04 - level 2 eval completed on 11/03- pending results for placement Code(s): [id number] - (3) Peripheral neuropathy Current Visit: Yes Status: Chronic Assessment & Plan: in actuality, the patient's main complaint. It appears he has been out of this medication as well for over a month. Given that he has washed out of the medication, will restart gabapentin at a lower dose. His last recorded dose was 600 mg TID. Start gabapentin at 3 mg p.o. TID - PT eval and treat - + foot drop 11/04 - CBC, CMP reviewed 11/05 - Pain improved Code(s): G62.9 - POLYNEUROPATHY, UNSPECIFIED (4) PTSD (post-traumatic stress disorder) Current Visit: Yes Status: Chronic Assessment & Plan: - patient states he was on his medication for this indication until 2 days ago, but he was unable to recall the name. Of his last discharge medication list, the most likely medication with his olanzapine. Reorder olanzapine 10 mg p.o. QHS Code(s): F43.10 - POST-TRAUMATIC STRESS DISORDER, UNSPECIFIED (5) Anxiety Current Visit: Yes Status: Chronic Assessment & Plan: - continue home meds - anxiety 2:2 situation Code(s): F41.9 - ANXIETY DISORDER, UNSPECIFIED (6) Hx of deep venous thrombosis Current Visit: Yes Status: Chronic Assessment & Plan: patient's home medication list is not clear. At 1 point, he was on Eliquis 5 BID, but he has been out of his medications for at least a month. Monitor for now, but will not start his Eliquis Code(s): Z86.718 - PERSONAL HISTORY OF OTHER VENOUS THROMBOSIS AND EMBOLISM (7) Substance abuse Current Visit: Yes Status: Chronic Assessment & Plan: - Hx of meth and THC use Code(s): F19.10 - OTHER PSYCHOACTIVE SUBSTANCE ABUSE, UNCOMPLICATED (8) BPH (benign prostatic hyperplasia) Current Visit: Yes Status: Chronic Assessment & Plan: Restart Flomax 0.4 mg QHS Code(s): N40.0 - BENIGN PROSTATIC HYPERPLASIA WITHOUT LOWER URINRY TRACT SYMP (9) Constipation Current Visit: Yes Status: Acute Assessment & Plan: - senokot added Code(s): K59.00 - CONSTIPATION, UNSPECIFIED - Discharge Discharge Date: 11/06/24 (Envive) Disposition: XFER OTHER Condition: Stable Prescriptions: Continue Tamsulosin HCl [Flomax] 0.4 mg PO HS Olanzapine 5 mg [zyPREXA 5MG TABLET] 10 mg PO HS Gabapentin 600 mg PO TID Albuterol Sulfate [Proventil Hfa] 2 puff IH QID #1 inhaler Additional Instructions: SNF ORDERS: REGULAR DIET PT/OT EVAL AND TREAT SEE ATTACHED MED LIST Follow up with: ALEXANDRIA LAWRENCE [Primary Care Provider] -
[2024-11-06 10:33] VITALS: PULSE 88; RESP 16; O2SAT 93
== END 2024-11-06 11:56 ==
LOC: ED 18:40 → MED SURG 22:07
PROVIDERS: ADMIT Internal Medicine; ATTEND Internal Medicine
DX: N39.0 Urinary tract infection, site not specified (principal); R62.7 Adult failure to thrive; Z59.82 Transportation insecurity; Z59.12 Inadequate housing utilities; G62.9 Polyneuropathy, unspecified; F43.10 Post-traumatic stress disorder, unspecified; F41.9 Anxiety disorder, unspecified; Z86.718 Personal history of other venous thrombosis and embolism; F19.10 Other psychoactive substance abuse, uncomplicated; N40.0 Benign prostatic hyperplasia without lower urinary tract symptoms; K59.00 Constipation, unspecified; Z79.899 Other long term (current) drug therapy; I10 Essential (primary) hypertension; I25.2 Old myocardial infarction; Z85.51 Personal history of malignant neoplasm of bladder; F17.200 Nicotine dependence, unspecified, uncomplicated
CPT/HCPCS: 0241U; 36415; 71045; 80048; 80053; 81001; 85025; 85027; 87086; 94640; 94760; 97116; 97161; 97530; 99285; G0378; Q3014; 99284; A9270-GY